=== PATIENT | female | born 1940 | race Caucasian/White ===

== ENCOUNTER 2018-12-05 22:16 | Inpatient (IN) | payer MEDICARE, MEDICAID ==
--- OUTSIDE RECORDS SUMMARY | 2018-12-05 22:25 | XMS REPORT | Continuity of Care Document ---
:1940 Author Organization [facility] Allergies and Intolerances Code Code Allergy Substance Type Reaction Severity Start End Status System Date Date 12265 RXNorm IV Dye, Iodine Drug Unknown Active Containing allergy (disorder) 3804 RXNorm Librium Drug Unknown Active allergy (disorder) 44168 RXNorm penicillin Drug Unknown Active allergy (disorder) 2670 RXNorm Codeine Drug Unknown Active allergy (disorder) 20271006 RXNorm Flagyl Drug Unknown Active allergy (disorder) 7052 RXNorm Morphine Drug Unknown Active allergy (disorder) 8754 RXNorm Propafenone Drug Unknown Active allergy (disorder) 6448 RXNorm [place] Drug Unknown Active allergy (disorder) 6387 RXNorm Lidocaine Drug Unknown Active allergy (disorder) 2356 RXNorm Chlordiazepoxide Drug Unknown Active allergy (disorder) Medications RxNorm Medication Dose Route Instructions Start End Status Date Date Acetaminophen 500 mg oral orally every 8 Active hours as needed. 087374 Acetaminophen 325 1 TAB ORAL EVERY 4 HOURS Active MG / Hydrocodone NEEDED as 019 Bitartrate 5 MG needed. (PRN Oral Tablet MILD PAIN) 0478949 Albuterol 0.833 3 mL inhalation inhaled 2 Active MG/ML / Ipratropium times per day [place] 0.167 MG/ML Inhalation Solution 19720602 Alprazolam 1 MG 1 mg oral orally 4 times Active Oral Tablet per day 129247 Ascorbic Acid 500 500 mg oral orally 2 times Active MG Oral Tablet per day 1191 Aspirin 81 mg oral orally daily Active (HOLD UNTIL DISCUSSED WITH PRESCRIBING PHYSICIAN) Budesonide 2 puff inhalation inhaled 2 Active times per day 946268 Dextromethorphan 5 mL oral orally 3 times Active Hydrobromide 2 per day MG/ML / Guaifenesin 20 MG/ML Oral Solution Doxycycline Hyclate 100 mg oral orally 2 times Active Oral per day (14 019 days) 25172 ferrous sulfate 325 mg oral orally daily Active (Ordered Dose: of ferrous sulfate) 70665 gabapentin 300 mg oral orally every Active day at bedtime 852768 Ketoconazole 20 1 applic topical topically 2 Active MG/ML Topical Cream times per day 488743 Lactobacillus 2 tab oral orally daily Active acidophilus 791793010 UNT Oral Tablet Levothyroxine Oral 125 mcg oral orally daily Active Methyl 1 applic topical topically 3 Active Salicylate-Menthol times per day Lotion as needed. 515488 Metoprolol Tartrate 25 mg oral orally 2 times Active 25 MG Oral Tablet per day Multivitamins 1 tab oral orally every Active Tablet morning 434516 Nystatin 100 UNT/MG 1 applic topical topically 3 Active Topical Powder times per day 7646 Omeprazole 20 mg oral orally daily Active 38765 Ondansetron 4 mg oral orally every 6 Active hours as needed. ProMod Liquid 60 oral orally 3 times Active milliliters per day (for wound healing) 789440 Sodium Chloride 2SPRAYS NASAL EVERY 4 HOURS Active 0.111 MEQ/ML Nasal (TO EACH 019 [place] NOSTRIL) Warfarin Oral 3.5 mg oral orally daily Active (HOLD UNTIL 019 DISCUSSED WITH PRESCRIBING PHYSICIAN) 633208 Zinc Sulfate 220 MG 220 mg oral orally daily Active Oral Tablet Problems Code Code System Problem Name Start Date End Date Status 632357763 SNOMED-CT Bleeding from nose 07/2018 Active 890325259 SNOMED-CT Pressure ulcer stage 4 U Active Procedures No data in the system Results Laboratory Results Order: PT/INR Specimen Source: Body Site: Legend: (G,H)=High, (GG,HH,CH,#H)=Above High Threshold, (#,L)=Low, (##,CL,#L,LL) =Below Low Threshold, (C,CC,CA,#A,A)=Abnormal LOINC Test Result Flag Range Units Date 5901-06 1PT Time PPP 25.6 H 9.4-12.4 sec 11/22/2018 07:35 6301-6 1INR PPP 2.3 11/22/2018 07:35 Interpretive [place]: 1 INR INTERPERTATION 2.0-3.0 THERAPEUTIC MONITORING 2.5-3.5 HEART VALVE REPLACEMENT Performing Lab Footnotes:[facility] - [id number] - [address] [place] [address] NURIA MDCANIEL Social History Code Code System Social History Description Dates Observed Observation 843759947 SNOMED CT Current Smoking Unknown if ever Status smoked UNK AdministrativeGender Sex Assigned At Unknown Vital Signs No data in the system Goals Section No data in the system Health Concerns No data in the systemEncounter Diagnosis Date Code Code System Diagnosis Status I48.0 ICD10 PAROXYSMAL ATRIAL FIBRILLATION Active Advance Directives MOLST Directive Type Effective Date Real Estate Agency Principal Notes Supporting Document Name Address Phone No Directive 07/31/2018 Not Specified Not Specified Not Specified HCP listed Yes Type specified 12:55:00 PM Melani- daughter [phone] Family History No data in the system Functional Status No data in the system Immunizations No data in the system Medical Equipment No data in the system Mental Status No data in the system Assessment and Plan Assessments No data in the systemPlan Of Treatment No data in the systemPending Tests No data in the system Hospital Discharge Instructions No data in the system Reason for Visit No data in the system
--- OUTSIDE RECORDS SUMMARY | 2018-12-05 22:25 | XMS REPORT | Continuity of Care Document ---
:1940 Author Organization [facility] Allergies and Intolerances Code Code Allergy Substance Type Reaction Severity Start End Status System Date Date 46112 RXNorm IV Dye, Iodine Drug Unknown Active Containing allergy (disorder) 3804 RXNorm Librium Drug Unknown Active allergy (disorder) 48858 RXNorm penicillin Drug Unknown Active allergy (disorder) 2670 RXNorm Codeine Drug Unknown Active allergy (disorder) 20271006 RXNorm Flagyl Drug Unknown Active allergy (disorder) 7052 RXNorm Morphine Drug Unknown Active allergy (disorder) 8754 RXNorm Propafenone Drug Unknown Active allergy (disorder) 6448 RXNorm [place] Drug Unknown Active allergy (disorder) 6387 RXNorm Lidocaine Drug Unknown Active allergy (disorder) 2356 RXNorm Chlordiazepoxide Drug Unknown Active allergy (disorder) Medications RxNorm Medication Dose Route Instructions Start End Status Date Date Acetaminophen 500 mg oral orally every 8 Active hours as needed. 736880 Acetaminophen 325 1 TAB ORAL EVERY 4 HOURS Active MG / Hydrocodone NEEDED as 019 Bitartrate 5 MG needed. (PRN Oral Tablet MILD PAIN) 5584761 Albuterol 0.833 3 mL inhalation inhaled 2 Active MG/ML / Ipratropium times per day [place] 0.167 MG/ML Inhalation Solution 19720602 Alprazolam 1 MG 1 mg oral orally 4 times Active Oral Tablet per day 358123 Ascorbic Acid 500 500 mg oral orally 2 times Active MG Oral Tablet per day 1191 Aspirin 81 mg oral orally daily Active (HOLD UNTIL DISCUSSED WITH PRESCRIBING PHYSICIAN) Budesonide 2 puff inhalation inhaled 2 Active times per day 327316 Dextromethorphan 5 mL oral orally 3 times Active Hydrobromide 2 per day MG/ML / Guaifenesin 20 MG/ML Oral Solution Doxycycline Hyclate 100 mg oral orally 2 times Active Oral per day (14 019 days) 08202 ferrous sulfate 325 mg oral orally daily Active (Ordered Dose: of ferrous sulfate) 42494 gabapentin 300 mg oral orally every Active day at bedtime 414392 Ketoconazole 20 1 applic topical topically 2 Active MG/ML Topical Cream times per day 894584 Lactobacillus 2 tab oral orally daily Active acidophilus 956445883 UNT Oral Tablet Levothyroxine Oral 125 mcg oral orally daily Active Methyl 1 applic topical topically 3 Active Salicylate-Menthol times per day Lotion as needed. 525737 Metoprolol Tartrate 25 mg oral orally 2 times Active 25 MG Oral Tablet per day Multivitamins 1 tab oral orally every Active Tablet morning 680739 Nystatin 100 UNT/MG 1 applic topical topically 3 Active Topical Powder times per day 7646 Omeprazole 20 mg oral orally daily Active 03867 Ondansetron 4 mg oral orally every 6 Active hours as needed. ProMod Liquid 60 oral orally 3 times Active milliliters per day (for wound healing) 940699 Sodium Chloride 2SPRAYS NASAL EVERY 4 HOURS Active 0.111 MEQ/ML Nasal (TO EACH 019 [place] NOSTRIL) Warfarin Oral 3.5 mg oral orally daily Active (HOLD UNTIL 019 DISCUSSED WITH PRESCRIBING PHYSICIAN) 222778 Zinc Sulfate 220 MG 220 mg oral orally daily Active Oral Tablet Problems Code Code System Problem Name Start Date End Date Status 972256369 SNOMED-CT Bleeding from nose 07/2018 Active 682406953 SNOMED-CT Pressure ulcer stage 4 U Active Procedures No data in the system Results Laboratory Results Order: PT/INR Specimen Source: Body Site: Legend: (G,H)=High, (GG,HH,CH,#H)=Above High Threshold, (#,L)=Low, (##,CL,#L,LL) =Below Low Threshold, (C,CC,CA,#A,A)=Abnormal LOINC Test Result Flag Range Units Date 5901-06 1PT Time PPP 37.2 H 9.4-12.4 sec 11/15/2018 08:25 6301-6 1INR PPP 3.3 11/15/2018 08:25 Interpretive [place]: 1 INR INTERPERTATION 2.0-3.0 THERAPEUTIC MONITORING 2.5-3.5 HEART VALVE REPLACEMENT Performing Lab Footnotes:[facility] - [id number] - [address] [place] [address] NURIA MCDANIEL Social History Code Code System Social History Description Dates Observed Observation 756446183 SNOMED CT Current Smoking Unknown if ever Status smoked UNK AdministrativeGender Sex Assigned At Unknown Vital Signs No data in the system Goals Section No data in the system Health Concerns No data in the systemEncounter Diagnosis Date Code Code System Diagnosis Status I48.0 ICD10 PAROXYSMAL ATRIAL FIBRILLATION Active Advance Directives MOLST Directive Type Effective Date Tumor Registrar Notes Supporting Document Name Address Phone No Directive 07/31/2018 Not Specified Not Specified Not Specified HCP listed Yes Type specified 12:55:00 PM Melani- daughter [phone] Family History No data in the system [...]
--- OUTSIDE RECORDS SUMMARY | 2018-12-05 22:25 | XMS REPORT | Continuity of Care Document ---
:1940 Author Organization [facility] Allergies and Intolerances Code Code Allergy Substance Type Reaction Severity Start End Status System Date Date 62140 RXNorm IV Dye, Iodine Drug Unknown Active Containing allergy (disorder) 3804 RXNorm Librium Drug Unknown Active allergy (disorder) 85961 RXNorm penicillin Drug Unknown Active allergy (disorder) 2670 RXNorm Codeine Drug Unknown Active allergy (disorder) 20271006 RXNorm Flagyl Drug Unknown Active allergy (disorder) 7052 RXNorm Morphine Drug Unknown Active allergy (disorder) 8754 RXNorm Propafenone Drug Unknown Active allergy (disorder) 6448 RXNorm [place] Drug Unknown Active allergy (disorder) 6387 RXNorm Lidocaine Drug Unknown Active allergy (disorder) 2356 RXNorm Chlordiazepoxide Drug Unknown Active allergy (disorder) Medications RxNorm Medication Dose Route Instructions Start End Status Date Date Acetaminophen 500 mg oral orally every 8 Active hours as needed. 839641 Acetaminophen 325 1 TAB ORAL EVERY 4 HOURS Active MG / Hydrocodone NEEDED as 019 Bitartrate 5 MG needed. (PRN Oral Tablet MILD PAIN) 1684458 Albuterol 0.833 3 mL inhalation inhaled 2 Active MG/ML / Ipratropium times per day [place] 0.167 MG/ML Inhalation Solution 19720602 Alprazolam 1 MG 1 mg oral orally 4 times Active Oral Tablet per day 146920 Ascorbic Acid 500 500 mg oral orally 2 times Active MG Oral Tablet per day 1191 Aspirin 81 mg oral orally daily Active (HOLD UNTIL DISCUSSED WITH PRESCRIBING PHYSICIAN) Budesonide 2 puff inhalation inhaled 2 Active times per day 065982 Dextromethorphan 5 mL oral orally 3 times Active Hydrobromide 2 per day MG/ML / Guaifenesin 20 MG/ML Oral Solution Doxycycline Hyclate 100 mg oral orally 2 times Active Oral per day (14 019 days) 67270 ferrous sulfate 325 mg oral orally daily Active (Ordered Dose: of ferrous sulfate) 93039 gabapentin 300 mg oral orally every Active day at bedtime 421040 Ketoconazole 20 1 applic topical topically 2 Active MG/ML Topical Cream times per day 323977 Lactobacillus 2 tab oral orally daily Active acidophilus 226382484 UNT Oral Tablet Levothyroxine Oral 125 mcg oral orally daily Active Methyl 1 applic topical topically 3 Active Salicylate-Menthol times per day Lotion as needed. 009738 Metoprolol Tartrate 25 mg oral orally 2 times Active 25 MG Oral Tablet per day Multivitamins 1 tab oral orally every Active Tablet morning 204540 Nystatin 100 UNT/MG 1 applic topical topically 3 Active Topical Powder times per day 7646 Omeprazole 20 mg oral orally daily Active 88873 Ondansetron 4 mg oral orally every 6 Active hours as needed. ProMod Liquid 60 oral orally 3 times Active milliliters per day (for wound healing) 587529 Sodium Chloride 2SPRAYS NASAL EVERY 4 HOURS Active 0.111 MEQ/ML Nasal (TO EACH 019 [place] NOSTRIL) Warfarin Oral 3.5 mg oral orally daily Active (HOLD UNTIL 019 DISCUSSED WITH PRESCRIBING PHYSICIAN) 133441 Zinc Sulfate 220 MG 220 mg oral orally daily Active Oral Tablet Problems Code Code System Problem Name Start Date End Date Status 226529078 SNOMED-CT Bleeding from nose 07/2018 Active 678660548 SNOMED-CT Pressure ulcer stage 4 U Active Procedures No data in the system Results Laboratory Results Order: C REACTIVE PROTEIN Specimen Source : Body Site: Legend: (G,H)=High, (GG,HH,CH,#H)=Above High Threshold, (#,L)=Low, (##,CL,#L,LL)=Below Low Threshold, (C,CC,CA,#A,A)=Abnormal LOINC Test Result Flag Range Units Date 1987-08 1CRP SerPl-mCnc 56.4 H <=5.0 mg/L 11/08/2018 09:10 Performing Lab Footnotes: Laboratory - [id number] - [address] [place] [address] NURIA MCDANIEL Order: CBC Specimen Source: Body Site: Legend: (G,H)=High, (GG,HH,CH,#H )=Above High Threshold, (#,L)=Low, (##,CL,#L,LL)=Below Low Threshold, (C,CC,CA,# A,A)=Abnormal LOINC Test Result Flag Range Units Date 6690-2 1WBC # Bld Auto 7.5 4.8-10.8 K/uL 11/08/2018 09:10 02805-2 1RBC # Bld 3.75 L 4.20-5.40 M/uL 11/08/2018 09:10 718-7 1Hgb Bld-mCnc 10.5 L 12.0-16.0 gm/dL 11/08/2018 09:10 4544-3 1Hct VFr Bld Auto 33.1 L 36.0-48.0 % 11/08/2018 09:10 787-2 1MCV RBC Auto 88.4 80.0-100.0 fL 11/08/2018 09:10 77490-3 1MCHC RBC-mCnc 31.8 30.0-36.5 % 11/08/2018 09:10 00211-4 1MCH RBC Qn 28.1 27.0-34.0 pg 11/08/2018 09:10 09066-2 1RDW RBC 13.6 11.0-15.0 % 11/08/2018 09:10 777-3 1Platelet # Bld Auto 196 130-450 K/uL 11/08/2018 09:10 23603-9 1PMV Bld Auto 8.9 6.0-12.0 fL 11/08/2018 09:10 Performing Lab Footnotes: Laboratory - [id number] - [address] [place] [address] NURIA [id number] Order: PT/INR Specimen Source: Body Site: Legend: (G,H)=High, (GG,HH,CH ,#H)=Above High Threshold, (#,L)=Low, (##,CL,#L,LL)=Below Low Threshold, (C,CC, CA,#A,A)=Abnormal LOINC Test Result Flag Range Units Date 5902-2 1PT Time PPP 25.2 H 9.4-12.4 sec 11/08/2018 09:10 6301-6 1INR PPP 2.2 11/08/2018 09:10 Interpretive [place]: 1 INR INTERPERTATION 2.0-3.0 THERAPEUTIC MONITORING 2.5-3.5 HEART VALVE REPLACEMENT Performing Lab Footnotes: Laboratory - [id number] - [address] [place] [address] NURIA Doan CHARLEENCIOMPerico Social History Code Code System Social History Description Dates Observed Observation 446076036 SNOMED CT Current Smoking Unknown if ever Status smoked UNK AdministrativeGender Sex Assigned At Unknown Vital Signs No data in the system Goals Section No data in the system Health Concerns No data in the systemEncounter Diagnosis Date Code Code System Diagnosis Status I48.0 ICD10 PAROXYSMAL ATRIAL FIBRILLATION Active Advance Directives MOLST Directive Type Effective Date Trimming Inspector Notes Supporting Document Name Address Phone No Directive 07/31/2018 Not Specified Not Specified Not Specified HCP listed Yes Type specified 12:55:00 PM Melani- daughter [phone] Family History No data in the system [...]
--- OUTSIDE RECORDS SUMMARY | 2018-12-05 22:26 | XMS REPORT | Continuity of Care Document ---
:1940 Author Organization [facility] Allergies and Intolerances Code Code Allergy Substance Type Reaction Severity Start End Status System Date Date 73455 RXNorm IV Dye, Iodine Drug Unknown Active Containing allergy (disorder) 3804 RXNorm Librium Drug Unknown Active allergy (disorder) 34091 RXNorm penicillin Drug Unknown Active allergy (disorder) 2670 RXNorm Codeine Drug Unknown Active allergy (disorder) 20271006 RXNorm Flagyl Drug Unknown Active allergy (disorder) 7052 RXNorm Morphine Drug Unknown Active allergy (disorder) 8754 RXNorm Propafenone Drug Unknown Active allergy (disorder) 6448 RXNorm [place] Drug Unknown Active allergy (disorder) 6387 RXNorm Lidocaine Drug Unknown Active allergy (disorder) 2356 RXNorm Chlordiazepoxide Drug Unknown Active allergy (disorder) Medications RxNorm Medication Dose Route Instructions Start End Status Date Date Acetaminophen 500 mg oral orally every 8 Active hours as needed. 704641 Acetaminophen 325 1 TAB ORAL EVERY 4 HOURS Active MG / Hydrocodone NEEDED as 019 Bitartrate 5 MG needed. (PRN Oral Tablet MILD PAIN) 1561368 Albuterol 0.833 3 mL inhalation inhaled 2 Active MG/ML / Ipratropium times per day [place] 0.167 MG/ML Inhalation Solution 19720602 Alprazolam 1 MG 1 mg oral orally 4 times Active Oral Tablet per day 572957 Ascorbic Acid 500 500 mg oral orally 2 times Active MG Oral Tablet per day 1191 Aspirin 81 mg oral orally daily Active (HOLD UNTIL DISCUSSED WITH PRESCRIBING PHYSICIAN) Budesonide 2 puff inhalation inhaled 2 Active times per day 754239 Dextromethorphan 5 mL oral orally 3 times Active Hydrobromide 2 per day MG/ML / Guaifenesin 20 MG/ML Oral Solution Doxycycline Hyclate 100 mg oral orally 2 times Active Oral per day (14 019 days) 72226 ferrous sulfate 325 mg oral orally daily Active (Ordered Dose: of ferrous sulfate) 54743 gabapentin 300 mg oral orally every Active day at bedtime 132210 Ketoconazole 20 1 applic topical topically 2 Active MG/ML Topical Cream times per day 380396 Lactobacillus 2 tab oral orally daily Active acidophilus 678800636 UNT Oral Tablet Levothyroxine Oral 125 mcg oral orally daily Active Methyl 1 applic topical topically 3 Active Salicylate-Menthol times per day Lotion as needed. 201063 Metoprolol Tartrate 25 mg oral orally 2 times Active 25 MG Oral Tablet per day Multivitamins 1 tab oral orally every Active Tablet morning 468678 Nystatin 100 UNT/MG 1 applic topical topically 3 Active Topical Powder times per day 7646 Omeprazole 20 mg oral orally daily Active 04462 Ondansetron 4 mg oral orally every 6 Active hours as needed. ProMod Liquid 60 oral orally 3 times Active milliliters per day (for wound healing) 439898 Sodium Chloride 2SPRAYS NASAL EVERY 4 HOURS Active 0.111 MEQ/ML Nasal (TO EACH 019 [place] NOSTRIL) Warfarin Oral 3.5 mg oral orally daily Active (HOLD UNTIL 019 DISCUSSED WITH PRESCRIBING PHYSICIAN) 225798 Zinc Sulfate 220 MG 220 mg oral orally daily Active Oral Tablet Problems Code Code System Problem Name Start Date End Date Status 571211309 SNOMED-CT Bleeding from nose 07/2018 Active 681861739 SNOMED-CT Pressure ulcer stage 4 U Active Procedures No data in the system Results Laboratory Results Order: PT/INR Specimen Source: Body Site: Legend: (G,H)=High, (GG,HH,CH,#H)=Above High Threshold, (#,L)=Low, (##,CL,#L,LL) =Below Low Threshold, (C,CC,CA,#A,A)=Abnormal LOINC Test Result Flag Range Units Date 5901-06 1PT Time PPP 20.8 H 9.4-12.4 sec 11/01/2018 08:24 6301-6 1INR PPP 1.9 11/01/2018 08:24 Interpretive [place]: 1 INR INTERPERTATION 2.0-3.0 THERAPEUTIC MONITORING 2.5-3.5 HEART VALVE REPLACEMENT Performing Lab Footnotes:[facility] - [id number] - [address] [place] [address] NURIA MCDANIEL Social History Code Code System Social History Description Dates Observed Observation 420673945 SNOMED CT Current Smoking Unknown if ever Status smoked UNK AdministrativeGender Sex Assigned At Unknown Vital Signs No data in the system Goals Section No data in the system Health Concerns No data in the systemEncounter Diagnosis Date Code Code System Diagnosis Status I48.0 ICD10 PAROXYSMAL ATRIAL FIBRILLATION Active Advance Directives MOLST Directive Type Effective Date Ad Clerk Notes Supporting Document Name Address Phone No Directive 07/31/2018 Not Specified Not Specified Not Specified HCP listed Yes Type specified 12:55:00 PM Melani- daughter [phone] Family History No data in the system [...]
--- NOTE | 2018-12-05 22:27 | ED ---
HPI Febrile Illness - HPI Summary HPI Summary: A 78 y/o female brought in by ambulance presents to [facility] with a chief complaint of spiking fevers today. She reportedly had a fever of 101. Per EMS, the patient has an ulcerative wound on her coccyx and has been going to the wound clinic. The patient reports that her butt is sore. She denies any dysuria , cough or SOB. She was reportedly started on Doxycycline this morning. - History of Current Complaint Time Seen by Provider: 12/05/18 22:17 Hx Obtained From: Patient, EMS Onset/Duration: Started Hours Ago, Still Present Timing: Intermittent, Lasting Hours Initial Severity: Severe Current Severity: Severe Pain Intensity: 9 Pain Scale Used: 0-10 Numeric Aggravating Factors: Nothing Alleviating Factors: Nothing Associated Signs and Symptoms: Negative - dysuria, cough, SOB - Allergy/Home Medications Allergies/Adverse Reactions: Allergies Allergy/AdvReac Type Severity Reaction Status Date / Time caffeine Allergy Unknown Verified 12/05/18 22:42 Reaction Details cephalexin Allergy Unknown Verified 12/05/18 22:42 Reaction Details chlordiazepoxide Allergy Unknown Verified 12/05/18 22:42 Reaction Details ciprofloxacin [From Cipro] Allergy Unknown Verified 12/05/18 22:42 Reaction Details codeine Allergy Unknown Verified 12/05/18 22:42 Reaction Details lidocaine Allergy Unknown Verified 12/05/18 22:42 Reaction Details lithium Allergy Unknown Verified 12/05/18 22:42 Reaction Details metronidazole Allergy Unknown Verified 12/05/18 22:42 Reaction Details morphine Allergy Unknown Verified 12/05/18 22:42 Reaction Details Penicillins Allergy Unknown Verified 12/05/18 22:42 Reaction Details propafenone Allergy Unknown Verified 12/05/18 22:42 Reaction Details sulfamethoxazole Allergy Unknown Verified 12/05/18 22:42 [From Bactrim] Reaction Details trimethoprim [From Bactrim] Allergy Unknown Verified 12/05/18 22:42 Reaction Details Home Medications: Home Medications Benzocaine 1 applic BUCCAL SEE INSTRUCTIONS 12/05/18 [History Confirmed 12/05/18 ] Levothyroxine Sodium 1 tab PO DAILY 12/05/18 [History Confirmed 12/05/18] Mag-Oxide 400 mg PO DAILY 12/05/18 [History Confirmed 12/05/18] Metoprolol Tartrate TAB* [Lopressor TAB*] 1 tab PO BID 12/05/18 [History Confirmed 12/05/18] Multiple Vitamins 1 tab PO DAILY 12/05/18 [History Confirmed 12/05/18] Muscle Rub Cream 1 applic TOPICAL SEE INSTRUCTIONS 12/05/18 [History Confirmed 12/05/18] Nystatin TOP POWDER* 1 applic TOPICAL TID 12/05/18 [History Confirmed 12/05/18] Omeprazole 20 mg PO DAILY 12/05/18 [History Confirmed 12/05/18] Ondansetron ODT TAB* 1 tab PO SEE INSTRUCTIONS 12/05/18 [History Confirmed 12/05] Oxycodone HCl 0.5 tab PO QID 12/05/18 [History Confirmed 12/05/18] Oxycodone HCl 0.5 tab PO SEE INSTRUCTIONS 12/05/18 [History Confirmed 12/05/18] Promod 1 bottle PO TID 12/05/18 [History Confirmed 12/05/18] Saline Nasal Benton 2 spr BOTH NARES SEE INSTRUCTIONS 12/05/18 [History Confirmed 12/05/18] Symbicort 160/4.5 (NF) 2 inh PO BID 12/05/18 [History Confirmed 12/05/18] Triamcinolone Acetonide 1 applic TOPICAL SEE INSTRUCTIONS 12/05/18 [History Confirmed 12/05/18] Warfarin TAB(*) 2 mg PO DAILY 12/05/18 [History Confirmed 12/05/18] Xanax TAB* 1 tab PO SEE INSTRUCTIONS 12/05/18 [History Confirmed 12/05/18] Zinc Sulfate CAP* 220 mg PO DAILY 12/05/18 [History Confirmed 12/05/18] PMH/Surg Hx/FS Hx/Imm Hx Cardiovascular History: Reports: Hx Atrial Fibrillation Respiratory History: Reports: Hx Pulmonary Embolism History: Reports: Hx Kidney Stones - Family History Known Family History: Negative: Blood Disorder - Social History Alcohol Use: None Hx Substance Use: No Substance Use Type: Reports: None Hx Tobacco Use: No Smoking Status (MU): Never Smoked Tobacco Review of Systems Positive: Fever - 101 [employer], 98.9 at triage Negative: Shortness Of Breath, Cough Negative: dysuria Positive: Other - positive: "butt hurts" All Other Systems Reviewed And Are Negative: Yes Physical Exam - Summary Physical Exam Summary: Constitutional: Well-developed, Well-nourished, Alert. (-) Distressed. Skin: 4cm x1xm x4cm deep sacral decubitus ulcer with surrounding erythema and malodourous odor from discharge, right breast there is dry scaly peeling skin. HENT: Normocephalic; Atraumatic Eyes: Conjunctiva normal Neck: Musculoskeletal ROM normal neck. (-) JVD, (-) Stridor, (-) Tracheal deviation Cardio: Rhythm regular, rate normal, Heart sounds normal; Intact distal pulses; The pedal pulses are 2+ and symmetric. Radial pulses are 2+ and symmetric. (+) Murmur Pulmonary/Chest wall: Effort normal. (-) Respiratory distress, (-) Wheezes, (-) Rales Abd: Soft, (-) tenderness, (-) Distension, (-) Guarding, (-) Rebound Musculoskeletal: (-) Edema Lymph: (-) Cervical adenopathy Neuro: Alert, Oriented x3 Psych: Mood and affect Normal Triage Information Reviewed: Yes Vital Signs Reviewed: Yes Diagnostics - Laboratory Result Diagrams: 12/05/18 22:47 12/05/18 22:47 Lab Statement: Any lab studies that have been ordered have been reviewed, and results considered in the medical decision making process. - Radiology CXR Radiology Interpretation Completed By: ED Physician Summary of Radiographic Findings: no acute disease. Pending official imaging report. - EKG 22:56 Cardiac Rate: NL - 89 bpm EKG Rhythm: Sinus Rhythm Summary of EKG Findings: Normal sinus rhythm at 89 bpm, borderline prolonged SD , normal QRS, normal QTc, normal axis, normal ST, normal T-waves, nonspecific EKG. Re-Evaluation - Re-Evaluation First Eval Re-Evaluation Time: 02:23 Course/Dx - Course Course Of Treatment: A 78 y/o female brought in by ambulance presents to [facility] with a chief complaint of spiking fevers today. She reportedly had a fever of 101. Per EMS, the patient has an ulcerative wound on her coccyx and has been going to the wound clinic. The physical exam revealed a heart murmur, 4cm x1xm x4cm deep sacral decubitus ulcer with surrounding erythema and malodourous odor from discharge, right breast there is dry scaly peeling skin. CXR showed no acute disease. An EKG at 22:56 reveals Normal sinus rhythm at 89 bpm, borderline prolonged SD, normal QRS, normal QTc, normal axis, normal ST, normal T-waves, nonspecific EKG. Blood work, chemistries and urines obtained. Urine blood 1+, Trace Leukocyte Esterase, Urine RBC 3+, Ur Squamous Epith Cells present. Discussed case with Dr. Yeager, hospitalist, who accepted the patient for admission. The patient is agreeable with this plan. - Diagnoses Provider Diagnoses: Osteomyelitis - Provider Notifications Discussed Care Of Patient With: Bartolo Yeager Time Discussed With Above Provider: 02:26 Instructed by Provider To: Admit As Inpatient Discharge - Sign-Out/Discharge Documenting (check all that apply): Patient Departure - admit Patient Received Moderate/Deep Sedation with Procedure: No - Discharge Plan Condition: Fair Disposition: ADMITTED TO [facility] Referrals: Bar Rdz MD [Primary Care Provider] - - Billing Disposition and Condition Condition: FAIR Disposition: Admitted to [facility] - Attestation Statements Document Initiated by Filiberto: Yes Documenting Scribe: Kavin Eugene Provider For Whom Scribe is Documenting (Include Credential): Brenna Pacheco MD Scribe Attestation: Kavin Scott, scribed for Brenna Almodovar MD on 12/06/18 at 0430. Scribe Documentation Reviewed: Yes Provider Attestation: The documentation as recorded by the Kavin kellogg accurately reflects the service I personally performed and the decisions made by me, Brenna Almodovar MD Status of Scribe Document: Viewed
[2018-12-05 23:05] LABS: ABS Eosinophils 0.1 10^3/ul (0-0.6); ABS Lymphocytes 1.2 10^3/ul (1.0-4.8); ABS Monocytes 0.5 10^3/ul (0-0.8); ABS Neutrophils 5.6 10^3/ul (1.5-7.7); Eosinophil % 1.4 %; Hematocrit 33 % (35-47); Hemoglobin 10.4 g/dL (12.0-16.0); Lymphocyte % 16.4 %; Mean Corpuscular HGB Conc 32 g/dL (31-36); Mean Corpuscular Hemoglobin 27 pg (27-31); Mean Corpuscular Volume 85 fL (80-97); Mean Platelet Volume 9.2 fL (7.4-10.4); Platelet Count 193 10^3/uL (150-450); Red Blood Count 3.85 10^6 /uL (3.70-4.87); Red Cell Distribution Width 16 % (10-15); White Blood Count 7.5 10^3/uL (3.5-10.8)
[2018-12-05 23:21] LABS: Albumin 2.9 g/dL (3.2-5.2); Albumin/Globulin Ratio 0.9 (1-3); Calcium 8.9 mg/dL (8.6-10.3); EGFR African American 91.8 (>60); EGFR Non-African American 75.9 (>60); Globulin 3.4 g/dL (2-4); Total Bilirubin 0.4 mg/dL (0.2-1.0); Total Protein 6.3 g/dL (6.4-8.9)
[2018-12-05 23:22] LABS: Activated Partial Thrombo Time 37.3 seconds (26.0-38.0); INR 2.1 (0.82-1.09)
[2018-12-05 23:23] LABS: Troponin I 0.01 ng/mL (<0.04)
[2018-12-06 00:45] LABS: Urine Appearance Cloudy; Urine Bacteria Absent (Absent); Urine Bilirubin Negative (Negative); Urine Blood 1+ (Negative); Urine Color Yellow; Urine Glucose Negative (Negative); Urine Ketones Negative (Negative); Urine Nitrite Negative (Negative); Urine Protein Negative (Negative); Urine Red Blood Cell 3+(>10/hpf) (Absent); Urine Specific Gravity 1.023 (1.010-1.030); Urine Squamous Epithelial Cell Present (Absent); Urine Urobilinogen Negative (Negative); Urine White Blood Cell Trace(0-5/hpf) (Absent)
[2018-12-06 02:45] LABS: C Reactive Protein 142.13 mg/L (<8.01)
[2018-12-06 03:36] LABS: Erythrocyte Sed Rate 79 mm/Hr (0-29)
[2018-12-06] MEDS ORDERED: Vancomycin(*) 1,000 MG in NS 0.9% 250 ML* 250 ML IVPB ONE (04:23)
[2018-12-06] MEDS ORDERED: Saline NASAL SPRAY 0.65%* BTL BOTH NARES SCH (04:30)
[2018-12-06] MEDS: oxyCODONE TAB* 5 MG TAB PO PRN ×4 (05:34→22:32)
[2018-12-06] MEDS: Aztreonam (*) 1 GM in NS 0.9% 50 ML* 50 ML IVPB SCH ×3 (06:25→22:33)
[2018-12-06] MEDS: Levothyroxine TAB* 125 MCG TAB PO SCH (06:26)
--- NOTE | 2018-12-06 06:43 | HP ---
CC: Dr. Bar Rdz; Dr. Fraser * ADMISSION HISTORY AND PHYSICAL: DATE OF ADMISSION: 12/06/18 PRIMARY CARE PHYSICIAN: Dr. Bar Rdz. INFECTIOUS DISEASE PHYSICIAN: Dr. Fraser. CHIEF COMPLAINT: Worsening low back pain with drainage of the decubitus. HISTORY OF PRESENT ILLNESS: This is a 78-year-old female with past medical history of AFib; PE, on Coumadin; asthma/COPD; history of C. diff; history of hypothyroidism and a chronic sacral abscess which was tunneling at [facility], came in due to worsening sacral wound pain and increased drainage and odor from that area. History was obtained by the daughter who is present at bedside as the patient was in pain and did not give much detail. She was noted to have on and off fever for the last few days and a culture was suggestive of Strep agalactiae and was started on some doxycycline by Dr. Fraser. The patient still was having fever and chills and increased drainage and malodor coming from the wound. So, daughter decided to bring the patient to the ER for further evaluation. The patient stated that she has some on and off nausea, but no vomiting; severe pain, 10/10 in intensity. She has also had some erythematic changes on the right breast, but otherwise no chest pain, no shortness of breath. She has some abdominal pain at the abdominal hernia site, but this is chronic. No other lower extremity swelling. PAST MEDICAL HISTORY: As mentioned: 1. AFib. 2. History of PE, status post IVC filter. 3. History of asthma with CO2 retention. 4. Hypothyroidism. 5. Sacral abscess, which has been treated ongoing for over a year, mostly at an outside facility, which was complicated by a history of C. diff. PAST SURGICAL HISTORY: Include: 1. Two aortic valve surgeries. 2. IVC filter placement. 3. Multiple abdominal surgeries including a hernia repair surgery. HOME MEDICATIONS: The patient is currently on: 1. Zinc sulfate capsule 225 mg oral daily. 2. Xanax 1 tablet oral p.r.n. anxiety. 3. Coumadin 2 mg oral daily. 4. Triamcinolone apply to areas with itching every 12 hours as needed. 5. Symbicort 2 puffs by inhalation twice a day. 6. Ondansetron 1 tablet every 6 hours as needed for nausea, vomiting. 7. Benzonatate for mucous membrane as needed for gum pain. 8. Saline nasal spray, 2 spray nasally every 12 hours. 9. ProMod 1 bottle p.o. t.i.d. 10. Oxycodone half a tablet oral 4 times a day and another half a tablet as needed. 11. Omeprazole 20 mg oral daily. 12. Nystatin topical powder 3 times a day. 13. Multivitamins 1 tablet oral daily. 14. Muscle rub cream as needed for pain. 15. Metoprolol 25 mg oral twice a day. 16. Magnesium oxide 400 mg oral daily. 17. Levothyroxine 1 tablet 125 mcg oral daily. ALLERGIES: The patient has multiple documented allergies including CAFFEINE, CEPHALEXIN, CHLORDIAZEPOXIDE, CIPROFLOXACIN, CODEINE, LIDOCAINE, LITHIUM, METRONIDAZOLE, MORPHINE, PENICILLIN, PROPAFENONE, BACTRIM. SOCIAL HISTORY: No history of smoking, alcohol, or drug use. Lives at the rehab facility for the last 5 months and has decreased ambulation. Daughter is adamant that the patient is a full code. FAMILY HISTORY: Noncontributory at her age. REVIEW OF SYSTEMS: A 14-point review of systems did not reveal any new information other than what is stated in the HPI. PHYSICAL EXAMINATION GENERAL: The patient is awake, alert, oriented to time after cueing and place after daughter helped her. VITAL SIGNS: In the ER, temperature was documented at 96.4, BP 112/69, heart rate 88, respirations 36, saturating 96% on room air. HEAD AND NECK: Atraumatic, normocephalic. Bilateral pupils are reactive. Oral mucosa was moist. Neck: Supple. No jugular venous distention. LUNGS: Clear to auscultation bilaterally. No wheezing, rhonchi, or rales. HEART: S1, S2, systolic murmur was heard. ABDOMEN: Obese with large incisional hernia on the right lateral aspect of the abdomen. EXTREMITIES: No cyanosis or clubbing. SKIN: The patient had erythema and abrasion on the right breast, possible cellulitis and on the decubitus examination, the patient has large decubitus ulcers, likely stage 4 with large tunnels noted to be draining some purulent material. DIAGNOSTIC STUDIES/LAB DATA: Last CBC shows normal white count, hemoglobin and hematocrit stable, platelet count was normal. Coagulation profile shows therapeutic INR of 2.1. Comprehensive metabolic panel shows elevated BUN at 54. C- reactive protein elevated at 142. ESR was elevated at 79. Lactic acid normal. Urinalysis was trace leukocyte esterase positive and positive for some blood. Portable chest x-ray shows sternotomy sutures, but otherwise clear lung duron. Sacral images difficult to discern; I will wait for the official read to see if the patient has any osteo. IMPRESSION: This is a 78-year-old female with large sacral decubitus with previous osteomyelitis at that site, comes in with fever, elevated erythrocyte sedimentation rate and C-reactive protein, likely all secondary to osteomyelitis. ASSESSMENT AND PLAN: 1. Large sacral decubitus with possible osteomyelitis. We started the patient on vanco, aztreonam given her allergies. We will consult Dr. Fraser in the morning along with surgical consultation, although the patient is adamant that she did not want any real surgery at this point. 2. History of atrial fibrillation. We will restart home Coumadin dosage. 3. History of pulmonary embolism, on Coumadin. 4. History of asthma. Restart home medications. 5. History of hypothyroidism. Restart home medications. 6. History of Clostridium difficile. We will monitor for any diarrhea as the patient is being started on broad-spectrum antibiotics. [id number]/[facility] #: [id number] [facility]
[2018-12-06] MEDS: NS 0.9% 1000 ML** 1,000 ML IV SCH (08:45)
[2018-12-06] MEDS: Pantoprazole TAB * 40 MG TAB PO SCH (08:55)
[2018-12-06] MEDS: Zinc Sulfate CAP* 220 MG PO SCH (08:56)
[2018-12-06] MEDS ORDERED: Metoprolol Tartrate TAB* 25 MG PO SCH (09:00)
[2018-12-06] MEDS ORDERED: Mometasone/Formoter 200/5 MDI INH SCH (09:00)
[2018-12-06] MEDS ORDERED: PROMOD PO SCH (09:00)
[2018-12-06] MEDS: Nystatin TOP POWDER* 15 GM BTL TOPICAL SCH ×3 (09:25→22:50)
[2018-12-06] MEDS ORDERED: Vancomycin per Pharmacy* NOTE FOLLOW UP PRN (11:35)
[2018-12-06] MEDS ORDERED: Senna TAB 8.6 mg* TAB PO PRN (11:40)
[2018-12-06] MEDS ORDERED: diPHENhydraMINE PO* 25 MG PO PRN (11:48)
[2018-12-06] MEDS ORDERED: Iohexol 300* (CONTRAST) 10 ML SDV IV ONE (11:57)
--- NOTE | 2018-12-06 12:41 | CONS ---
CONSULTATION REPORT: DATE OF CONSULT: 12/06/18 REQUESTING PROVIDER: Dr. Yeager. CONSULTING SERVICE: Infectious Disease. REASON FOR CONSULTATION: Decubitus ulcer and pain. IMPRESSION: 1. Chronic decubitus ulceration, previously treated for osteomyelitis, recently increased drainage and outpatient wound culture grew group B streptococcus. She had started doxycycline this week, had some fevers and chills. Her daughter brought her to the hospital. Wound culture last night was taken. The Gram stains shows gram-positive cocci and Staphylococcus aureus PCR is positive. Methicillin- resistant Staphylococcus aureus PCR negative. On exam, there is no evidence of cellulitis and she may have myositis and recurrence of chronic osteomyelitis. 2. Decubitus ulceration after hospitalization for valve surgery in the distant past. 3. Atrial fibrillation. RECOMMENDATION: We will continue vancomycin and aztreonam given her allergy history and await the culture results. For decubitus ulceration include osteomyelitis, long courses of IV antibiotics do not change her trajectory or improve healing. We will plan on treating the soft tissue component here with IV antibiotics and transition to oral therapy. HISTORY OF PRESENT ILLNESS: This is a 78-year-old woman who developed decubitus ulceration over a year ago after a stay for valve surgery in [place]. She has been in the group home off and on since then with this ulcer. She has also been followed by the wound clinic and I had seen her earlier in a year and treated her for a presumed osteomyelitis of the sacrum with a prolonged course of antibiotics. She apparently had been making some progress and then over the last week or so developed increasing pain and some drainage. Because of those symptoms, she was seen by Esther Mendoza NP at the wound clinic, who did a wound culture that grew group B strep. She started the patient on doxycycline this week. She had continued to have symptoms and so her daughter brought her to the hospital last night. Her CRP was 140. White count was 7. She has had no fevers here. She cannot provide much history , which is obtained instead from review of the medical record and discussion with Dr. Yeager this morning. PAST MEDICAL HISTORY: 1. Status post aortic valve surgery and IVC placement. 2. Chronic decubitus ulceration. 3. History of PE. 4. Asthma. 5. Hypothyroidism. 6. Abdominal surgery including hernia repair. MEDICATIONS: 1. Aztreonam 1 g every 8 hours. 2. Levothyroxine. 3. Metoprolol. 4. Nystatin topical powder. 5. Oxycodone as needed. 6. Pantoprazole. 7. Vancomycin 1 g once. 8. Warfarin. ALLERGIES: CEPHALEXIN, CHLORDIAZEPOXIDE, CIPROFLOXACIN, CODEINE, LIDOCAINE, LITHIUM, METRONIDAZOLE, MORPHINE, PENICILLIN, PROPAFENONE, BACTRIM. She cannot provide history of what those reactions were. FAMILY HISTORY: No recurrent infections. SOCIAL HISTORY: She has been living at [facility]. She is a nonsmoker. REVIEW OF SYSTEMS: A 14-point review was all negative except as noted above in the history of present illness. PHYSICAL EXAM: Vital Signs: Temperature 36.2, heart rate 89, respiratory rate 16, blood pressure 100/53, oxygen saturation 100% on 2 L. In general, she is awake, not in distress. Neurologic: She is oriented x2. Answers questions. Follows commands. Moves all extremities. HEENT: There is no conjunctival hemorrhage. Oropharynx without lesions. Neck is supple without mass. Heart is regular rate and rhythm without murmurs, rubs, or gallops. Lungs are clear to auscultation bilaterally. Abdomen: Soft, nontender, nondistended. Bowel sounds present. Skin: There is no rash or splinter hemorrhage. Musculoskeletal : No spine tenderness to palpation. There is a sacral ulceration, which is quite deep with at the base there is some granulation tissue. There is no serous drainage. There is no surrounding erythema. DIAGNOSTIC STUDIES/LAB DATA: White blood cell count 7, hemoglobin 10, platelets 193. Creatinine is 0.7. Please see impression and recommendations outlined above. Thanks for asking me to see Ms. Mahoney in consultation. [id number]/[facility] #: [id number] [facility]
[2018-12-06] MEDS: ALPRAZolam TAB* 0.5 MG PO SCH ×3 (13:39→19:55)
[2018-12-06] MEDS: Vancomycin(*) 1,000 MG in NS 0.9% 250 ML* 250 ML IVPB SCH (15:37)
--- NOTE | 2018-12-06 15:38 | PN ---
<Marian Alfonso - Last Filed: 12/06/18 18:34> Subjective Date of Service: 12/06/18 Interval History: Overnight, no issues noted. BP borderline, SBP ranging 90-100mmhg. Patient screamed for pain. Daughter was around and showed team a new wound on her right breast, which they just noticed, discharge noted from the wound. Objective Active Medications: Alprazolam (Xanax Tab*) 1 mg PO QID [facility] Last Admin: 12/06/18 13:39 Dose: 1 mg Sodium Chloride (Ns 0.9% 1000 Ml) 1,000 mls @ 75 mls/hr IV PER RATE [facility] Last Admin: 12/06/18 08:45 Dose: 75 mls/hr Aztreonam 1 gm/ Sodium (Chloride) 50 mls @ 200 mls/hr IVPB Q8H [facility] Last Admin: 12/06/18 13:36 Dose: 200 mls/hr Vancomycin HCl 1,000 mg/ (Sodium Chloride) 250 mls @ 166.667 mls/hr IVPB Q12H [facility] Levothyroxine Sodium (Synthroid Tab*) 125 mcg PO 0600 [facility] Last Admin: 12/06/18 06:26 Dose: 125 mcg Metoprolol Tartrate (Lopressor Tab*) 25 mg PO DAILY [facility] Mometasone Furoate/Formoterol Fumar (Dulera 200/5 Mdi*) 2 puff INH BID [facility] Nystatin (Nystatin Top Powder*) 1 applic TOPICAL TID [facility] Last Admin: 12/06/18 13:39 Dose: 1 applic Oxycodone HCl (Roxycodone Tab*) 2.5 mg PO QID PRN PRN Reason: PAIN - SEVERE Last Admin: 12/06/18 13:32 Dose: 2.5 mg Pantoprazole Sodium (Protonix Tab*) 40 mg PO DAILY [facility] Last Admin: 12/06/18 08:55 Dose: 40 mg Pharmacy Consult (Vancomycin Per Pharmacy*) 1 note FOLLOW UP . PRN PRN Reason: PER PROTOCOL Pharmacy Profile Note (Coumadin Per Pharmacy*) 0 note FOLLOW UP .PER PHARMACY PROTOC [facility]; Protocol Pharmacy Profile Note (Vancomycin Trough Check) 1 note FOLLOW UP ONCE ONE Stop: 12/07/18 15:31 Senna (Senokot 8.6 Mg Tab*) 2 tab PO DAILY PRN PRN Reason: CONSTIPATION Sodium Chloride (Sodium Chloride 0.65% Nasal [place]*) 2 spray BOTH NARES .SEE INSTRUCTIONS [facility] Warfarin Sodium (Coumadin Tab(*)) 2 mg PO ONCE ONE Stop: 12/06/18 17:01 Zinc Sulfate (Zinc-220 Cap*) 220 mg PO DAILY [facility] Last Admin: 12/06/18 08:56 Dose: 220 mg Vital Signs - 8 hr 12/06/18 12/06/18 12/06/18 08:00 08:02 08:55 Temperature 97.1 F Pulse Rate 89 Respiratory 17 16 18 Rate Blood Pressure 100/53 (mmHg) O2 Sat by Pulse 98 100 Oximetry 12/06/18 12/06/18 12/06/18 11:59 13:32 13:39 Temperature 98.5 F Pulse Rate 90 Respiratory 16 17 17 Rate Blood Pressure 102/48 (mmHg) O2 Sat by Pulse 98 Oximetry Oxygen Devices in Use Now: Nasal Cannula Exam: Lying on the bed. alert. Heart normal S1S2 Lung clear skin: ulcer noted on right breast upper right quadrant, huge ulcer noted on sacrum (unable to visualize whether bone is exposed) Result Diagrams: 12/05/18 22:47 12/05/18 22:47 Assess/Plan/Problems-Billing Assessment: - Patient Problems (1) Sacral decubitus ulcer Current Visit: Yes Status: Acute Code(s): L89.159 - PRESSURE ULCER OF SACRAL REGION, UNSPECIFIED STAGE SNOMED Code(s): 917203043 Comment: - osteomyelitis is of concern - MRI scan to access decubitus ulcer, ID noted and agreed with plan - continue iv aztrenam and vancomycin - wound team review (2) Decubitus skin ulcer Current Visit: Yes Status: Acute Code(s): L89.90 - PRESSURE ULCER OF UNSPECIFIED SITE, UNSPECIFIED STAGE SNOMED Code(s): 955285429 Comment: right breast ulcer new emerging with discharge wound team review (3) Anemia Current Visit: Yes Status: Acute Code(s): D64.9 - ANEMIA, UNSPECIFIED SNOMED Code(s): 824773476 Comment: ? anemia due to chronic disease iron study next bld taking (4) Atrial fibrillation Current Visit: Yes Status: Acute Code(s): I48.91 - UNSPECIFIED ATRIAL FIBRILLATION SNOMED Code(s): 45591823 Comment: rate controlled currently (5) History of pulmonary embolism Current Visit: Yes Status: Acute Code(s): Z86.711 - PERSONAL HISTORY OF PULMONARY EMBOLISM SNOMED Code(s): 772783891 Comment: on warfarin INR 2.1 (6) Asthma Current Visit: Yes Status: Acute Code(s): J45.909 - UNSPECIFIED ASTHMA, UNCOMPLICATED SNOMED Code(s): 074227233 Comment: stable now (7) History of hypothyroidism Current Visit: Yes Status: Acute Code(s): Z86.39 - PERSONAL HISTORY OF ENDO , NUTRITIONAL AND METABOLIC DISEASE SNOMED Code(s): 017276263 Comment: on levothyroxine Status and Disposition: Continue inpatient medicine Attestation Documenting Resident: Marian Alfonso Supervising Physician: Leona Hodges Attestation: This service has been performed in part by a resident under the direction of a teaching physician.I, Leona Hodges, performed the service, or was physically present during the critical, or meadows portions of the service, furnished by the resident. I participated in the management of the patient. <Dena Hodges - Last Filed: 12/06/18 21:20> Objective Active Medications: Alprazolam (Xanax Tab*) 1 mg PO QID [facility] Last Admin: 12/06/18 19:55 Dose: 1 mg Sodium Chloride (Ns 0.9% 1000 Ml) 1,000 mls @ 75 mls/hr IV PER RATE [facility] Last Admin: 12/06/18 08:45 Dose: 75 mls/hr Aztreonam 1 gm/ Sodium (Chloride) 50 mls @ 200 mls/hr IVPB Q8H [facility] Last Admin: 12/06/18 13:36 Dose: 200 mls/hr Vancomycin HCl 1,000 mg/ (Sodium Chloride) 250 mls @ 83.333 mls/hr IVPB Q12H [facility] Last Admin: 12/06/18 15:37 Dose: 166.667 mls/hr Levothyroxine Sodium (Synthroid Tab*) 125 mcg PO 0600 [facility] Last Admin: 12/06/18 06:26 Dose: 125 mcg Metoprolol Tartrate (Lopressor Tab*) 25 mg PO DAILY [facility] Mometasone Furoate/Formoterol Fumar (Dulera 200/5 Mdi*) 2 puff INH 0700,1900 [facility] Nystatin (Nystatin Top Powder*) 1 applic TOPICAL TID [facility] Last Admin: 12/06/18 13:39 Dose: 1 applic Oxycodone HCl (Roxycodone Tab*) 5 mg PO QID PRN PRN Reason: PAIN - SEVERE Last Admin: 12/06/18 16:12 Dose: 5 mg Pantoprazole Sodium (Protonix Tab*) 40 mg PO DAILY [facility] Last Admin: 12/06/18 08:55 Dose: 40 mg Pharmacy Consult (Vancomycin Per Pharmacy*) 1 note FOLLOW UP . PRN PRN Reason: PER PROTOCOL Pharmacy Profile Note (Coumadin Per Pharmacy*) 0 note FOLLOW UP .PER PHARMACY PROTOC [facility]; Protocol Pharmacy Profile Note (Vancomycin Trough Check) 1 note FOLLOW UP ONCE ONE Stop: 12/07/18 15:31 Senna (Senokot 8.6 Mg Tab*) 2 tab PO DAILY PRN PRN Reason: CONSTIPATION Last Admin: 12/06/18 16:12 Dose: 2 tab Sodium Chloride (Sodium Chloride 0.65% Nasal [place]*) 2 spray BOTH NARES .SEE INSTRUCTIONS [facility] Zinc Sulfate (Zinc-220 Cap*) 220 mg PO DAILY [facility] Last Admin: 12/06/18 08:56 Dose: 220 mg Vital Signs - 8 hr 12/06/18 12/06/18 12/06/18 13:32 13:39 15:38 Respiratory 17 17 17 Rate 12/06/18 12/06/18 12/06/18 16:12 16:17 19:23 Respiratory 18 18 18 Rate 12/06/18 12/06/18 12/06/18 19:28 19:45 19:46 Respiratory 18 19 18 Rate 12/06/18 19:55 Respiratory 18 Rate Result Diagrams: 12/05/18 22:47 12/05/18 22:47 Assess/Plan/Problems-Billing Assessment: Attestation Attending/Supervising Physician Comment: This is a 78 year old woman with a history of PE, TAVR, and chronic decubitus ulcer who has been following with wound and ID and presents for increased drainage from the sacral wound. She currently resides at a rehab facility. Her daughter Becky provides most of the history. she says her mom has had increased pain over the past three weeks. She also noted a right breast ulceration. Not meeting SIRS criteria. Wound examined and reveals a 3cm wide, at least 5cm deep round ulcer with purulent drainage, minimal surrounding erythema. Agree with ID consult, aztreonam/vanc, and MRI of the pelvis. May need surgical or plastics evaluation; will need to address anticoagulation if surgery becomes a possibility.
[2018-12-06] MEDS ORDERED: Warfarin TAB(*) 2 MG PO ONE (17:00)
[2018-12-06] MEDS ORDERED: diPHENhydraMINE IV* 50 MG/ML 1 ml VIAL (BENADRYL) IV ONE (19:24)
--- NOTE | 2018-12-06 19:34 | PN ---
Hospitalist Progress Note Date of Service: 12/06/18 Called to floor regarding medication reaction. Patient had first dose of vancomycin IV administered at approx 1600. At approx 1915, nursing notes diffuse erythema throughout torso. At exam, patient is complaining of leg pain, which has been consistent since admission. Does not have chest pain or SOB. PE: General: obese whtie female laying in hospital bed appearing anxious Lungs: regular respirations, not using accessory muscles Skin: diffuse erythema throughout chest, abdomen, breasts, bilateral upper arms , and back; warm to touch Plan: -contacted pharmacy, next dose vanco will be administered at slower rate; pharmacist Leslie will be editing adverse reaction list on EMR -awaiting VS, patient has been minimally hypotensive; Nursing will monitor for evidence of anaphylaxis but none at this point -benadryl 50 mg IV ordered
[2018-12-06] MEDS: Mometasone/Formoter 200/5 MDI INH SCH (22:55)
[2018-12-07] MEDS: NS 0.9% 1000 ML** 1,000 ML IV SCH (01:29)
[2018-12-07] MEDS: Vancomycin(*) 1,000 MG in NS 0.9% 250 ML* 250 ML IVPB SCH (05:10)
[2018-12-07] MEDS: oxyCODONE TAB* 5 MG TAB PO PRN ×2 (05:11→16:09)
[2018-12-07] MEDS: Levothyroxine TAB* 125 MCG TAB PO SCH (05:11)
[2018-12-07 07:09] LABS: INR 2.38 (0.82-1.09)
--- NOTE | 2018-12-07 07:16 | PN ---
<Marian Alfonso - Last Filed: 12/07/18 16:02> Subjective Date of Service: 12/07/18 Interval History: Patient had labile BP overnight, with SBP 80-104mmhg. She was screaming whole night for pain, which is not new to her. Overnight, she developed rash over upper arms and chest with 2nd dose of vancomycin, nocturnalist slowed down the speed and completed infusion. Still complaining of itchness and rash this morning. Objective Active Medications: Alprazolam (Xanax Tab*) 1 mg PO QID [facility] Last Admin: 12/06/18 19:55 Dose: 1 mg Sodium Chloride (Ns 0.9% 1000 Ml) 1,000 mls @ 75 mls/hr IV PER RATE [facility] Last Admin: 12/07/18 01:29 Dose: 75 mls/hr Aztreonam 1 gm/ Sodium (Chloride) 50 mls @ 200 mls/hr IVPB Q8H [facility] Last Admin: 12/06/18 22:33 Dose: 200 mls/hr Vancomycin HCl 1,000 mg/ (Sodium Chloride) 250 mls @ 83.333 mls/hr IVPB Q12H [facility] Last Admin: 12/07/18 05:10 Dose: 83.333 mls/hr Levothyroxine Sodium (Synthroid Tab*) 125 mcg PO 0600 [facility] Last Admin: 12/07/18 05:11 Dose: 125 mcg Mometasone Furoate/Formoterol Fumar (Dulera 200/5 Mdi*) 2 puff INH 0700,1900 [facility] Last Admin: 12/06/18 22:55 Dose: Not Given Nystatin (Nystatin Top Powder*) 1 applic TOPICAL TID [facility] Last Admin: 12/06/18 22:50 Dose: 1 applic Oxycodone HCl (Roxycodone Tab*) 5 mg PO QID PRN PRN Reason: PAIN - SEVERE Last Admin: 12/07/18 05:11 Dose: 5 mg Pantoprazole Sodium (Protonix Tab*) 40 mg PO DAILY [facility] Last Admin: 12/06/18 08:55 Dose: 40 mg Pharmacy Consult (Vancomycin Per Pharmacy*) 1 note FOLLOW UP . PRN PRN Reason: PER PROTOCOL Pharmacy Profile Note (Coumadin Per Pharmacy*) 0 note FOLLOW UP .PER PHARMACY PROTOC [facility]; Protocol Pharmacy Profile Note (Vancomycin Trough Check) 1 note FOLLOW UP ONCE ONE Stop: 12/07/18 15:31 Senna (Senokot 8.6 Mg Tab*) 2 tab PO DAILY PRN PRN Reason: CONSTIPATION Last Admin: 12/06/18 16:12 Dose: 2 tab Sodium Chloride (Sodium Chloride 0.65% Nasal [place]*) 2 spray BOTH NARES .SEE INSTRUCTIONS [facility] Zinc Sulfate (Zinc-220 Cap*) 220 mg PO DAILY [facility] Last Admin: 12/06/18 08:56 Dose: 220 mg Vital Signs - 8 hr 12/06/18 12/06/18 12/07/18 23:12 23:20 03:16 Temperature 97.6 F 97.3 F Pulse Rate 106 105 Respiratory 20 20 Rate Blood Pressure 89/44 104/50 80/46 (mmHg) O2 Sat by Pulse 100 97 Oximetry 12/07/18 12/07/18 03:30 05:11 Temperature Pulse Rate Respiratory 24 Rate Blood Pressure 94/54 (mmHg) O2 Sat by Pulse Oximetry Oxygen Devices in Use Now: Nasal Cannula Exam: Lying on bed, screaming in pain Heart normal S1S2 Lung clear Abdomen: soft non tender Skin: erythema over right upper arm mainly, blanchable. Result Diagrams: 12/07/18 09:10 12/07/18 06:12 Assess/Plan/Problems-Billing Assessment: This is a 78 year old woman with a history of PE, TAVR, and chronic sacrum decubitus ulcer with underlying potential OM presents for increased drainage from the sacral wound and a new ulcer in right breast. - Patient Problems (1) Sacral decubitus ulcer Current Visit: Yes Status: Acute Code(s): L89.159 - PRESSURE ULCER OF SACRAL REGION, UNSPECIFIED STAGE SNOMED Code(s): 082513292 Comment: - osteomyelitis is of concern - MRI scan to access decubitus ulcer (not done yet as need to check TVAR compatibility) - wound team followup in wound while awaiting MRI to decide further plan - convert to linezolid in view of vancomycin allergy and prelim MSSA wound (2) Decubitus skin ulcer Current Visit: Yes Status: Acute Code(s): L89.90 - PRESSURE ULCER OF UNSPECIFIED SITE, UNSPECIFIED STAGE SNOMED Code(s): 183426132 Comment: right breast ulcer new emerging with discharge wound team followup (3) Anemia Current Visit: Yes Status: Acute Code(s): D64.9 - ANEMIA, UNSPECIFIED SNOMED Code(s): 163280773 Comment: anemia due to chronic disease + iron def (4) Atrial fibrillation Current Visit: Yes Status: Acute Code(s): I48.91 - UNSPECIFIED ATRIAL FIBRILLATION SNOMED Code(s): 56851753 Comment: currently sinus rhythm, rate controlled (5) History of pulmonary embolism Current Visit: Yes Status: Acute Code(s): Z86.711 - PERSONAL HISTORY OF PULMONARY EMBOLISM SNOMED Code(s): 684446971 Comment: on warfarin INR 2.1 (6) Asthma Current Visit: Yes Status: Acute Code(s): J45.909 - UNSPECIFIED ASTHMA, UNCOMPLICATED SNOMED Code(s): 900563063 Comment: stable now (7) History of hypothyroidism Current Visit: Yes Status: Acute Code(s): Z86.39 - PERSONAL HISTORY OF ENDO , NUTRITIONAL AND METABOLIC DISEASE SNOMED Code(s): 242431699 Comment: on levothyroxine Status and Disposition: Continue inpatient medicine Attestation Documenting Resident: Marian Alfonso Supervising Physician: Leona Hodges Attestation: This service has been performed in part by a resident under the direction of a teaching physician.I, Leona Hodges, performed the service, or was physically present during the critical, or meadows portions of the service, furnished by the resident. I participated in the management of the patient. <Dena Hodges - Last Filed: 12/07/18 16:37> Objective Active Medications: Alprazolam (Xanax Tab*) 1 mg PO QID [facility] Last Admin: 12/07/18 12:39 Dose: 1 mg Hydrocortisone (Hydrocortisone 0.5% Oint*) 1 applic TOPICAL BID [facility] Sodium Chloride (Ns 0.9% 1000 Ml) 1,000 mls @ 75 mls/hr IV PER RATE [facility] Last Admin: 12/07/18 01:29 Dose: 75 mls/hr Aztreonam 1 gm/ Sodium (Chloride) 50 mls @ 200 mls/hr IVPB Q8H [facility] Last Admin: 12/07/18 14:14 Dose: 200 mls/hr Levothyroxine Sodium (Synthroid Tab*) 125 mcg PO 0600 [facility] Last Admin: 08/08/19 05:11 Dose: 125 mcg Linezolid (Zyvox Tab*) 600 mg PO Q12H [facility] Last Admin: 12/07/18 09:02 Dose: 600 mg Mometasone Furoate/Formoterol Fumar (Dulera 200/5 Mdi*) 2 puff INH 0700,1900 [facility] Last Admin: 12/07/18 08:58 Dose: 2 puff Nystatin (Nystatin Top Powder*) 1 applic TOPICAL TID [facility] Last Admin: 12/07/18 14:19 Dose: 1 applic Oxycodone HCl (Roxycodone Tab*) 5 mg PO QID PRN PRN Reason: PAIN - SEVERE Last Admin: 12/07/18 16:09 Dose: 5 mg Pantoprazole Sodium (Protonix Tab*) 40 mg PO DAILY [facility] Last Admin: 12/07/18 08:44 Dose: 40 mg Pharmacy Profile Note (Coumadin Per Pharmacy*) 0 note FOLLOW UP .PER PHARMACY PROTOC [facility]; Protocol Senna (Senokot 8.6 Mg Tab*) 2 tab PO DAILY PRN PRN Reason: CONSTIPATION Last Admin: 12/06/18 16:12 Dose: 2 tab Sodium Chloride (Sodium Chloride 0.65% Nasal [place]*) 2 spray BOTH NARES .SEE INSTRUCTIONS [facility] Warfarin Sodium (Coumadin Tab(*)) 2 mg PO 1700 ONE Stop: 12/07/18 17:01 Zinc Sulfate (Zinc-220 Cap*) 220 mg PO DAILY [facility] Last Admin: 12/07/18 08:44 Dose: 220 mg Vital Signs - 8 hr 12/07/18 12/07/18 12/07/18 08:44 09:00 11:15 Temperature 97.9 F Pulse Rate 99 89 Respiratory 19 15 17 Rate Blood Pressure 98/55 (mmHg) O2 Sat by Pulse 95 97 Oximetry 12/07/18 12/07/18 12/07/18 11:22 12:39 15:47 Temperature Pulse Rate Respiratory 18 18 17 Rate Blood Pressure (mmHg) O2 Sat by Pulse Oximetry 12/07/18 16:09 Temperature Pulse Rate Respiratory 17 Rate Blood Pressure (mmHg) O2 Sat by Pulse Oximetry Result Diagrams: 12/07/18 09:10 12/07/18 06:12 Assess/Plan/Problems-Billing Assessment: Attestation Attending/Supervising Physician Comment: Ms. Mahoney has continued to cry out but has not been able to explain how we can help her; she denies increased pain or anxiety, denies shorntess of breath, chest pain, nausea. Exam: yelling out but denies increased pain or anxietyholosystolic murmur; lungs clear and cannot appreciate JVP. superficial breast ulceration and deep sacral wound. # sacral wound MSSA from wound need MRI of pelvis, awaiting records about tavr to ensure mri compatibility ID following change vanc to linezolid today due to allergy may need surgery vs. plastics? will await imaging # breast wound frequent turning and barrier cream # h/o afib holding metoprolol due to hypotension continue warfarin; check daily INRs during antibiotics
[2018-12-07 07:26] LABS: Total Iron Binding Capacity 210 mcg/dL (250-450); Transferrin 150 mg/dL (203-362)
[2018-12-07 07:27] LABS: CO2 Carbon Dioxide 21 mmol/L (22-32); Calcium 8.5 mg/dL (8.6-10.3); Potassium 4.2 mmol/L (3.5-5.0); Sodium 143 mmol/L (135-145)
[2018-12-07 07:33] LABS: BUN/Creatinine Ratio 48.1 (8-20); Blood Urea Nitrogen 37 mg/dL (6-24); EGFR African American 87.7 (>60); EGFR Non-African American 72.5 (>60); Glucose 107 mg/dL (70-100)
[2018-12-07 07:37] LABS: Anion Gap 8 mmol/L (2-11); Chloride 114 mmol/L (101-111)
[2018-12-07 07:45] LABS: Ferritin 171.7 ng/mL (11-307)
[2018-12-07 07:56] LABS: % Iron Saturation 10 % (15-55); Iron < 20 ug/dL (50-212)
[2018-12-07] MEDS: Aztreonam (*) 1 GM in NS 0.9% 50 ML* 50 ML IVPB SCH ×3 (08:40→22:58)
[2018-12-07] MEDS: Nystatin TOP POWDER* 15 GM BTL TOPICAL SCH ×3 (08:44→22:57)
[2018-12-07] MEDS: Pantoprazole TAB * 40 MG TAB PO SCH (08:44)
[2018-12-07] MEDS: ALPRAZolam TAB* 0.5 MG PO SCH ×4 (08:44→22:58)
[2018-12-07] MEDS: Zinc Sulfate CAP* 220 MG PO SCH (08:44)
[2018-12-07] MEDS: Mometasone/Formoter 200/5 MDI INH SCH ×2 (08:58→19:46)
[2018-12-07] MEDS ORDERED: Metoprolol Tartrate TAB* 25 MG PO SCH (09:00)
[2018-12-07] MEDS: Linezolid TAB* 600 MG PO SCH ×2 (09:02→22:58)
[2018-12-07 09:25] LABS: ABS Eosinophils 0.1 10^3/ul (0-0.6); ABS Lymphocytes 1.1 10^3/ul (1.0-4.8); ABS Monocytes 0.5 10^3/ul (0-0.8); ABS Neutrophils 11.2 10^3/ul (1.5-7.7); Eosinophil % 1.1 %; Hematocrit 34 % (35-47); Hemoglobin 10.6 g/dL (12.0-16.0); Lymphocyte % 8.7 %; Mean Corpuscular HGB Conc 32 g/dL (31-36); Mean Corpuscular Hemoglobin 27 pg (27-31); Mean Corpuscular Volume 85 fL (80-97); Mean Platelet Volume 8.9 fL (7.4-10.4); Platelet Count 232 10^3/uL (150-450); Red Blood Count 3.96 10^6 /uL (3.70-4.87); Red Cell Distribution Width 17 % (10-15); White Blood Count 13.1 10^3/uL (3.5-10.8)
[2018-12-07] MEDS ORDERED: Vancomycin Trough Check NOTE FOLLOW UP ONE (15:30)
[2018-12-07] MEDS ORDERED: Vancomycin(*) 750 MG in NS 0.9% 250 ML* 250 ML IVPB SCH (16:00)
[2018-12-07] MEDS ORDERED: diPHENhydraMINE IV* 50 MG/ML 1 ml VIAL (BENADRYL) SLOW PUSH ONE (16:16)
--- NOTE | 2018-12-07 16:34 | ECHO ---
*[facility]* [place] [address] Fax #: [phone] Transthoracic Echocardiogram Patient: Allison Mahoney : 1940 Study Date: 12/07/2018 Age: 78 Gender: F HR: 101 bpm Height: 58 in /147.3 cm BSA: 1.92 m^2 Weight: 188.6 lb /85.7 kg BMI: 39.5 kg/m^2 *Care Mgr: * Kaylen Cabrera RDCS RN *Referring Physician: * Dena Hodges *Reading Physician: * Dario Louise MD Indications: Congestive Heart Failure. History: Atrial fibrillation. Pulmonary Embolism. Asthma. Hypothyroidism. Large sacral decubitus ulcer with previous osteomyelitis. Risk factors: Obese. Labs, prior tests, procedures, and surgery: IVC filter placement. Aortic valve replacement. Conclusions Summary: - Right ventricle: Systolic function is low normal. - Left atrium: The atrium is mildly dilated. - Right atrium: The atrium is normal in size. - Mitral valve: The findings are consistent with mild stenosis. There is moderate regurgitation which may be underestimated due to acoustic shadowing. - Aortic valve: The findings are consistent with at least moderate stenosis; the degree of stenosis is difficult t estimate due to poor visualizaiton of the valve and mild dynamic left ventricular outflow tract accerleration. The peak systolic velocity is 4 m/sec. The mean systolic gradient is 38.0 mm Hg. The peak systolic gradient is 63.0 mm Hg. The LVOT to aortic valve VTI ratio is 0.39. The valve area by the velocity-time integral method is 0.84 cm^2. The ratio of LVOT to aortic valve peak velocity is 0.33. The valve area by the peak velocity method is 0.72 cm^2. The valve area index by the peak velocity method is 0.38 cm^2/m^2. - Tricuspid valve: There is trace to mild regurgitation. - Pulmonary arteries: Systolic pressure is mildly increased, estimated to be 39 mm Hg. Recommendations: Consider transesophageal echocardiogram to further assess mitral regurgitation and Aortic stenosis if clinically indicated Study data: Transthoracic echocardiogram. Procedure: Transthoracic echocardiography was performed. Image quality was fair. The study was technically limited due to restricted patient mobility and body habitus. The patient was unable to cooperate during the use of the Pedoff probe. Complete 2D, spectral Doppler, and color flow Doppler. Location: Bedside. Patient status: Inpatient. Patient room number: 439. No prior study is available for comparison. Rhythm: Tachycardia. Findings Left ventricle: The cavity size is mildly reduced. Wall thickness is moderately increased. Systolic function is hyperdynamic. The estimated ejection fraction is 65-70%. Wall motion is normal; there are no regional wall motion abnormalities. Doppler parameters are consistent with abnormal left ventricular relaxation (grade 1 diastolic dysfunction). Right ventricle: The cavity size is normal. Systolic function is low normal. Left atrium: The atrium is mildly dilated. Right atrium: The atrium is normal in size. Mitral valve: The Mitral valve annulus appears moderately calcified. The leaflets are mildly thickened. The findings are consistent with mild stenosis. There is moderate regurgitation which may be underestimated due to acoustic shadowing. Aortic valve: There is a bioprosthetic valve. The leaflets are moderately thickened. The findings are consistent with at least moderate stenosis; the degree of stenosis is difficult t estimate due to poor visualizaiton of the valve and mild dynamic left ventricular outflow tract accerleration. There is trace to mild regurgitation. Tricuspid valve: Not well visualized. There is no evidence of stenosis. There is trace to mild regurgitation. Pulmonic valve: Not well visualized. There is no evidence of stenosis. There is trace regurgitation. Aorta: Aortic root: The aortic root is poorly visualized. Ascending aorta: The ascending aorta is not visualized. Aortic arch: The aortic arch is not dilated. Pericardium: There is no pericardial effusion. Pulmonary arteries: Not well visualized. Systolic pressure is mildly increased, estimated to be 39 mm Hg. Systemic veins: Inferior vena cava: The vessel is normal in size. There is (>= 50%) respiratory change in the IVC dimension. Measurements Left ventricle Value Ref Aortic valve Value Ref GRETEL, LAX (L) 3.7 cm 3.8 - Peak v, S 4 m/sec ----- 5.2 VTI, S 59.7 cm ----- ESD, LAX 2.4 cm 2.2 - Mean grad, S 38.0 mm Hg ----- 3.5 Peak grad, S 63.0 mm Hg ----- FS, LAX 35 % 27 - 45 LVOT/AV, VTI ratio 0.39 ----- PW, ED (H) 1.4 cm 0.6 - MARGIE, VTI 0.84 cm^2 ----- 0.9 MARGIE, Vmax 0.72 cm^2 ----- IVS/PW, ED 1.01 -------- E', lat amy, TDI 10.0 cm/sec >=10.0 Mitral valve Value Re f E/e', lat amy, TDI 9 -------- Peak E 0.86 m/sec ----- E', med amy, TDI (L) 6.0 cm/sec >=7.0 Peak A 1.55 m/sec -- --- E/e', med amy, TDI 14 -------- VTI leaflet coapt 28.4 cm ----- E', avg, TDI 8.0 cm/sec -------- Decel time 198 ms ----- E/e', avg, TDI 11 <=14 PHT 55 ms -- --- Mean grad, D 5.3 mm Hg ----- LVOT Value Ref Peak grad, D 13.2 mm Hg ----- Diam, S 1.67 cm -------- Peak E/A ratio 0.56 ----- Area 2.2 cm^2 -------- MVA, PHT 4.0 cm^2 ----- Peak kareem, S 1.33 m/sec -------- MR peak v 5.65 m/sec ----- VTI, S 23.1 cm -------- ERO, PISA 0.27 cm^2 ----- Peak grad, S 7 mm Hg -------- MR vol, PISA 33 ml ----- Mean grad, S 5 mm Hg -------- Pulmonic valve Value Ref Ventricular septum Value Ref Peak v, S 0.97 m/sec ----- IVS, ED (H) 1.4 cm 0.6 - Peak grad, S 3.8 mm Hg ----- 0.9 Tricuspid valve Value Ref Right ventricle Value Ref TR peak v (H) 3 m/sec <=2.8 GRETEL minor ax, A4C 3.1 cm 1.9 - Peak RV-RA grad, S 36 mm Hg ----- mid 3.5 Aortic root Value Ref Left atrium Value Ref Root diam 1.9 cm <4.1 LA ID 3.8 cm -------- SI dim ES, LAX 3.8 cm -------- Aortic arch Value Ref ML dim, A4C 4.6 cm -------- Arch diam 2.3 cm ----- SI dim, A4C 4.9 cm -------- Vol, ES, 2-p 61 ml -------- Decending aorta Value Ref Vol/bsa, ES, 2-p 34 ml/m^2 16 - 34 Baldemar peak kareem 0.63 m/sec ----- Right atrium Value Ref Inferior vena cava Value Ref SI dim, ES 4.5 cm 3.4 - Diam 1.9 cm ----- 5.3 ML dim, ES, A4C 3.3 cm 2.6 - 4.4 SI dim, ES, A4C 4.5 cm 3.4 - 5.3 SI dim/bsa, ES, A4C 2.3 cm/m^2 1.9 - 3.1 Estimated RAP 3 mm Hg -------- Legend: (L) and (H) edith values outside specified reference range. Prepared and electronically signed by Dario Louise MD 12/07/2018 16:34
[2018-12-07] MEDS ORDERED: Warfarin TAB(*) 2 MG PO ONE (17:00)
[2018-12-07] MEDS ORDERED: Hydrocortisone 0.5% OINT* 1 APPLIC TUBE TOPICAL SCH (21:00)
[2018-12-08] MEDS: Hydrocortisone 1% CREAM* 30 GM TUBE TOPICAL SCH ×3 (05:01→20:15)
[2018-12-08] MEDS: Levothyroxine TAB* 125 MCG TAB PO SCH (05:34)
[2018-12-08] MEDS: oxyCODONE TAB* 5 MG TAB PO PRN ×4 (05:34→23:24)
[2018-12-08] MEDS: Aztreonam (*) 1 GM in NS 0.9% 50 ML* 50 ML IVPB SCH ×3 (05:38→20:17)
[2018-12-08 07:04] LABS: ABS Eosinophils 0.3 10^3/ul (0-0.6); ABS Monocytes 0.5 10^3/ul (0-0.8); ABS Neutrophils 8.6 10^3/ul (1.5-7.7); Eosinophil % 2.6 %; Hematocrit 29 % (35-47); Hemoglobin 9.5 g/dL (12.0-16.0); Lymphocyte % 9.5 %; Mean Corpuscular HGB Conc 33 g/dL (31-36); Mean Corpuscular Hemoglobin 28 pg (27-31); Mean Corpuscular Volume 85 fL (80-97); Mean Platelet Volume 9.2 fL (7.4-10.4); Platelet Count 181 10^3/uL (150-450); Red Blood Count 3.45 10^6 /uL (3.70-4.87); Red Cell Distribution Width 16 % (10-15); White Blood Count 10.3 10^3/uL (3.5-10.8)
[2018-12-08 07:06] LABS: INR 3.66 (0.82-1.09)
--- NOTE | 2018-12-08 07:18 | PN ---
<Marian Alfonso - Last Filed: 12/08/18 14:25> Subjective Date of Service: 12/08/18 Interval History: Noted one episode of low BP overnight, BP 71/33mmhg Pt is well, no complain of chest pain, SOB. Labs: WBC downtrending, Hb 10.6->9.5 Checked with MRI room, still trying to obtain valve information from [facility], didn't receive anything yet. Wound team haven't seen the patient yet. Objective Active Medications: Alprazolam (Xanax Tab*) 1 mg PO QID [facility] Last Admin: 12/07/18 22:58 Dose: 1 mg Hydrocortisone (Hytone Cream 1%*) 1 applic TOPICAL BID [facility] Last Admin: 12/08/18 05:01 Dose: 1 applic Aztreonam 1 gm/ Sodium (Chloride) 50 mls @ 200 mls/hr IVPB Q8H [facility] Last Admin: 12/08/18 05:38 Dose: 200 mls/hr Levothyroxine Sodium (Synthroid Tab*) 125 mcg PO 0600 [facility] Last Admin: 12/08/18 05:34 Dose: 125 mcg Linezolid (Zyvox Tab*) 600 mg PO Q12H [facility] Last Admin: 12/07/18 22:58 Dose: 600 mg Mometasone Furoate/Formoterol Fumar (Dulera 200/5 Mdi*) 2 puff INH 0700,1900 [facility] Last Admin: 12/07/18 19:46 Dose: 2 puff Nystatin (Nystatin Top Powder*) 1 applic TOPICAL TID [facility] Last Admin: 12/07/18 22:57 Dose: 1 applic Oxycodone HCl (Roxycodone Tab*) 5 mg PO QID PRN PRN Reason: PAIN - SEVERE Last Admin: 12/08/18 05:34 Dose: 5 mg Pantoprazole Sodium (Protonix Tab*) 40 mg PO DAILY [facility] Last Admin: 12/07/18 08:44 Dose: 40 mg Pharmacy Profile Note (Coumadin Per Pharmacy*) 0 note FOLLOW UP .PER PHARMACY PROTOC [facility]; Protocol Senna (Senokot 8.6 Mg Tab*) 2 tab PO DAILY PRN PRN Reason: CONSTIPATION Last Admin: 12/06/18 16:12 Dose: 2 tab Sodium Chloride (Sodium Chloride 0.65% Nasal [place]*) 2 spray BOTH NARES .SEE INSTRUCTIONS FRANCINE Zinc Sulfate (Zinc-220 Cap*) 220 mg PO DAILY [facility] Last Admin: 12/07/18 08:44 Dose: 220 mg Vital Signs - 8 hr 12/08/18 12/08/18 12/08/18 01:00 03:15 05:34 Temperature 98.1 F Pulse Rate 88 Respiratory 16 18 18 Rate Blood Pressure 99/50 (mmHg) O2 Sat by Pulse 98 Oximetry Oxygen Devices in Use Now: Nasal Cannula Exam: Inspected wound Right breast ulcer, no discharge seen Sacrum ulcer, one packed gauze seen, erythema not improving Heart normal S1S2 Lung Clear Abd: soft non tender LL no edema Result Diagrams: 12/08/18 06:07 12/08/18 06:07 Assess/Plan/Problems-Billing Assessment: This is a 78 year old woman with a history of PE, TAVR, and chronic sacrum decubitus ulcer with underlying potential OM presents for increased drainage from the sacral wound and a new ulcer in right breast. - Patient Problems (1) Sacral decubitus ulcer Current Visit: Yes Status: Acute Code(s): L89.159 - PRESSURE ULCER OF SACRAL REGION, UNSPECIFIED STAGE SNOMED Code(s): 671688934 Comment: - osteomyelitis is of concern - a/w MRI scan to access decubitus ulcer (not done yet as need to check TVAR compatibility with [facility]) - a/w wound team review - started on vancomycin, but noted allergic rashes with it, convert to linezolid in view of vancomycin allergy and prelim MSSA wound - consult general surgery team today for potential debridement (2) Decubitus skin ulcer Current Visit: Yes Status: Acute Code(s): L89.90 - PRESSURE ULCER OF UNSPECIFIED SITE, UNSPECIFIED STAGE SNOMED Code(s): 055245354 Comment: right breast ulcer new emerging with discharge a/w wound team followup (3) Anemia Current Visit: Yes Status: Acute Code(s): D64.9 - ANEMIA, UNSPECIFIED SNOMED Code(s): 745101206 Comment: anemia due to chronic disease + iron def (4) Atrial fibrillation Current Visit: Yes Status: Acute Code(s): I48.91 - UNSPECIFIED ATRIAL FIBRILLATION SNOMED Code(s): 57869646 Comment: currently sinus rhythm, rate controlled (5) History of pulmonary embolism Current Visit: Yes Status: Acute Code(s): Z86.711 - PERSONAL HISTORY OF PULMONARY EMBOLISM SNOMED Code(s): 357449879 Comment: on warfarin INR 3.6 today, stop today Convert to heparin if surgical team wants to do debridement. (6) Asthma Current Visit: Yes Status: Acute Code(s): J45.909 - UNSPECIFIED ASTHMA, UNCOMPLICATED SNOMED Code(s): 228180687 Comment: stable now (7) History of hypothyroidism Current Visit: Yes Status: Acute Code(s): Z86.39 - PERSONAL HISTORY OF ENDO , NUTRITIONAL AND METABOLIC DISEASE SNOMED Code(s): 125752094 Comment: on levothyroxine Status and Disposition: Continue inpatient medicine Attestation Documenting Resident: Marian Alfonso Supervising Physician: Dena Hodges Attestation: This service has been performed in part by a resident under the direction of a teaching physician.I, Dena Hodges, performed the service, or was physically present during the critical, or meadows portions of the service, furnished by the resident. I participated in the management of the patient. <Dena Hodges - Last Filed: 12/08/18 17:50> Objective Active Medications: Alprazolam (Xanax Tab*) 1 mg PO QID [facility] Last Admin: 12/08/18 16:36 Dose: 1 mg Hydrocortisone (Hytone Cream 1%*) 1 applic TOPICAL BID [facility] Last Admin: 12/08/18 08:26 Dose: 1 applic Hydromorphone HCl (Dilaudid Inj1s*) 0.5 mg IV SLOW PU Q4H PRN PRN Reason: PAIN - SEVERE Last Admin: 12/08/18 13:21 Dose: 0.5 mg Aztreonam 1 gm/ Sodium (Chloride) 50 mls @ 200 mls/hr IVPB Q8H [facility] Last Admin: 12/08/18 13:26 Dose: 200 mls/hr Levothyroxine Sodium (Synthroid Tab*) 125 mcg PO 0600 [facility] Last Admin: 12/08/18 05:34 Dose: 125 mcg Linezolid (Zyvox Tab*) 600 mg PO Q12H [facility] Last Admin: 12/08/18 08:26 Dose: 600 mg Mometasone Furoate/Formoterol Fumar (Dulera 200/5 Mdi*) 2 puff INH 0700,1900 [facility] Last Admin: 12/08/18 09:30 Dose: 2 puff Nystatin (Nystatin Top Powder*) 1 applic TOPICAL TID [facility] Last Admin: 12/08/18 13:26 Dose: 1 applic Oxycodone HCl (Roxycodone Tab*) 5 mg PO QID PRN PRN Reason: PAIN - SEVERE Last Admin: 12/08/18 17:27 Dose: 5 mg Pantoprazole Sodium (Protonix Tab*) 40 mg PO DAILY [facility] Last Admin: 12/08/18 08:26 Dose: 40 mg Pharmacy Profile Note (Coumadin Per Pharmacy*) 0 note FOLLOW UP .PER PHARMACY PROTOC [facility]; Protocol Senna (Senokot 8.6 Mg Tab*) 2 tab PO DAILY PRN PRN Reason: CONSTIPATION Last Admin: 12/06/18 16:12 Dose: 2 tab Sodium Chloride (Sodium Chloride 0.65% Nasal [place]*) 2 spray BOTH NARES .SEE INSTRUCTIONS [facility] Last Admin: 12/08/18 08:26 Dose: 2 spray Zinc Sulfate (Zinc-220 Cap*) 220 mg PO DAILY [facility] Last Admin: 12/08/18 08:26 Dose: 220 mg Vital Signs - 8 hr 12/08/18 12/08/18 12/08/18 10:34 12:00 12:29 Temperature 97.5 F Pulse Rate 86 Respiratory 20 24 16 Rate Blood Pressure 102/58 (mmHg) O2 Sat by Pulse 99 Oximetry 12/08/18 12/08/18 12/08/18 12:45 13:21 15:14 Temperature 97.8 F Pulse Rate 87 Respiratory 20 20 18 Rate Blood Pressure 101/46 (mmHg) O2 Sat by Pulse 100 Oximetry 12/08/18 12/08/18 16:36 17:27 Temperature Pulse Rate Respiratory 16 20 Rate Blood Pressure (mmHg) O2 Sat by Pulse Oximetry Result Diagrams: 12/08/18 06:07 12/08/18 06:07 Assess/Plan/Problems-Billing Assessment: Attestation Attending/Supervising Physician Comment: still awaiting MRI consult wound and surgery today hold warfarin for supratherapeutic INR add pain control
[2018-12-08 07:20] LABS: BUN/Creatinine Ratio 43.8 (8-20); Calcium 8.3 mg/dL (8.6-10.3); EGFR African American 93.3 (>60); EGFR Non-African American 77.1 (>60); Potassium 3.7 mmol/L (3.5-5.0)
[2018-12-08] MEDS: Mometasone/Formoter 200/5 MDI INH SCH ×3 (07:56→19:34)
[2018-12-08] MEDS: Linezolid TAB* 600 MG PO SCH ×2 (08:26→20:16)
[2018-12-08] MEDS: Nystatin TOP POWDER* 15 GM BTL TOPICAL SCH ×3 (08:26→20:16)
[2018-12-08] MEDS: Pantoprazole TAB * 40 MG TAB PO SCH (08:26)
[2018-12-08] MEDS: Zinc Sulfate CAP* 220 MG PO SCH (08:26)
[2018-12-08] MEDS: ALPRAZolam TAB* 0.5 MG PO SCH ×4 (08:26→20:14)
[2018-12-08] MEDS: HYDROmorphone INJ1* 1 MG/ML SYRINGE IV SLOW PU PRN (13:21)
--- NOTE | 2018-12-08 14:15 | PN ---
Progress Note - Progress Note Date of Service: 12/08/18 SOAP: Subjective: CC: wound infection HPI: 78 year old woman with decubitus ulcer admitted with increased drainage and pain, awaiting MRI. Pain about the same, no fever, rash or diarrhea per RN. Objective: Vital Signs Temp 36.4 C 12/08/18 12:00 Pulse 86 12/08/18 12:00 Resp 20 12/08/18 13:21 BP 102/58 12/08/18 12:00 Pulse Ox 99 12/08/18 12:00 Intake & Output 12/07/18 12/08/18 12/08/18 18:59 06:59 18:59 Intake Total 1541 180 320 Balance 1541 180 320 Intake: IV Fluids 1299 180 50 Aztreonam 100 50 NS (0.9%) 1299 80 IVPB 62 25 Aztreonam 62 25 Oral 180 0 245 Other: Estimated Void Large # Bowel Movements 1 Estimated Stool Amount Small Gen:awake, no distress HEENT: no thrush Heart:RRR no murmur Lungs:CTA BL Abd:+BS NTND soft Skin: no rash MSK: sacral decub bandaged Laboratory Results - last 24 hr 12/08/18 12/08/18 12/08/18 06:07 06:07 06:07 WBC 10.3 RBC 3.45 L Hgb 9.5 L Hct 29 L MCV 85 MCH 28 MCHC 33 RDW 16 H Plt Count 181 MPV 9.2 Neut % (Auto) 82.9 Lymph % (Auto) 9.5 Harmon % (Auto) 4.6 Eos % (Auto) 2.6 Baso % (Auto) 0.4 Absolute Neuts (auto) 8.6 H Absolute Lymphs (auto) 1.0 Absolute Monos (auto) 0.5 Absolute Eos (auto) 0.3 Absolute Basos (auto) 0.0 Absolute Nucleated RBC 0.0 Nucleated RBC % 0.0 INR (Anticoag Therapy) 3.66 H Sodium 144 Potassium 3.7 Chloride 117 H Carbon Dioxide 20 L Anion Gap 7 BUN 32 H Creatinine 0.73 Est GFR ( Amer) 93.3 Est GFR (Non-Af Amer) 77.1 BUN/Creatinine Ratio 43.8 H Glucose 101 H Calcium 8.3 L Assessment: 1. decubitus ulcer wound infection, MSSA by PCR, recent GBS by culture. 2. rash due to vancomycin, multiple other allergies 3. immobility 4. s/p AVR Plan: 1. continue linezolid 600 mg by merari twice daily for 28 days, she may need plastics eval in [place] for flap if this is to be closed.
--- NOTE | 2018-12-08 16:31 | CONS ---
CC: Dr. Ashok Fraser; Primary Care Doctor; Shelter * SURGICAL CONSULTATION REPORT: DATE OF CONSULT: 12/08/18 HISTORY OF PRESENT ILLNESS: The surgical department was contacted by the hospitalist service to evaluate Ms. Mahoney, a 78-year-old female, detention patient, with longstanding decubitus ulcer, who has been seen at the [facility], who was admitted on 12/06/18 to the hospitalist service for increasing drainage from the sacral decubitus. Infectious Disease was consulted and made recommendations for MSSA treatment. Cultures were taken. The patient had been undergoing collagen dressing changes in the wound center for treatment of osteomyelitis since August of 2017. The patient is nonambulatory. She is status post aortic valve replacement and remains on Coumadin. The patient has undergone negative pressure wound therapy treatment at the site. She has undergone Medihoney Alginate as well and had been on doxycycline prior to this admission. The patient has never gone to the OR for this. The patient is a poor historian, so the medical record from the wound center was reviewed and showed mostly unchanged sacral ulcer that tunnels at the 12 o'clock position approximately 6 to 8 cm. PAST MEDICAL HISTORY: Reviewed and includes AFib; history of PE; asthma and a CO2 retainer, on nasal cannula oxygen at all times; hypothyroidism. PAST SURGICAL HISTORY: Aortic valves and IVC filter placement as well as hernia repair. The patient does note that she still has a hernia. MEDICATIONS: List reviewed. ALLERGIES: List reviewed. REVIEW OF SYSTEMS: No fevers or chills. The patient is incontinent of stool, wears undergarment and incontinent of urine, suffers with dementia. PHYSICAL EXAM: Temperature 97.8, blood pressure 101/46, heart rate 87, respirations 18, O2 sat 100% on nasal cannula. Focused examination of the sacral area reveals a 3 x 2 cm opening that involves all underlying structures including muscle as well as periosteum. This tunnels approximately 8 cm superiorly. I can evaluate the sacrum and the periosteum is smooth and intact without any splintering. The drainage is serous. The old packing was removed today. The wound was coarsely debrided with gauze and bleeding was brisk and controlled with pressure by packing it with a Kerlix gauze today followed by 4x4s and an ABD pad and paper tape. Nurses were in the room helping with this care. IMPRESSION AND PLAN: Longstanding sacral ulcer in a patient who is nonambulatory with cardiac disease, on Coumadin. I agree with recommendation for MRI and evaluation; however, I do not anticipate wound like this healing under the circumstances with Ms. Mahoney. This may be a good opportunity to have a palliative discussion with Ms. Mahoney and her family members. At this point, I recommend wet- to-dry dressing with large Kerlix. This should be changed daily for now and ensure that we do not lose packing within the wound. She can continue to follow with the wound center. We will anticipate MRI results and she will continue to be on antibiotics. No surgical intervention as this does not require debridement or represents any abscess formation. No plastic surgery intervention would be performed under these circumstances either for rotational flap or otherwise. I discussed this with the nursing staff and an order for wet-to-dry dressings daily will be made. No additional followup by our department will be made except on a weekly basis. The patient can follow up in the wound center upon discharge. [id number]/[facility] #: [id number] GAEL
[2018-12-08] MEDS ORDERED: WARFARIN - No Order Today* 1 NOTE MISC FOLLOW UP ONE (17:00)
[2018-12-09] MEDS: HYDROmorphone INJ1* 1 MG/ML SYRINGE IV SLOW PU PRN ×3 (04:24→18:22)
[2018-12-09] MEDS: Levothyroxine TAB* 125 MCG TAB PO SCH (05:07)
[2018-12-09] MEDS: Aztreonam (*) 1 GM in NS 0.9% 50 ML* 50 ML IVPB SCH (05:07)
[2018-12-09 06:40] LABS: INR 4.29 (0.82-1.09)
--- NOTE | 2018-12-09 07:10 | PN ---
<Marian Alfonso - Last Filed: 12/09/18 12:31> Subjective Date of Service: 12/09/18 Interval History: No overnight issues. Labs: INR 4.29 despite stopping warfarin for 1 day Pt has no complain except asking for nurses to stay in her room forever. Objective Active Medications: Alprazolam (Xanax Tab*) 1 mg PO QID [facility] Last Admin: 12/08/18 20:14 Dose: 1 mg Hydrocortisone (Hytone Cream 1%*) 1 applic TOPICAL BID [facility] Last Admin: 12/08/18 20:15 Dose: 1 applic Hydromorphone HCl (Dilaudid Inj1s*) 0.5 mg IV SLOW PU Q4H PRN PRN Reason: PAIN - SEVERE Last Admin: 12/09/18 04:24 Dose: 0.5 mg Aztreonam 1 gm/ Sodium (Chloride) 50 mls @ 200 mls/hr IVPB Q8H [facility] Last Admin: 12/09/18 05:07 Dose: 200 mls/hr Levothyroxine Sodium (Synthroid Tab*) 125 mcg PO 0600 [facility] Last Admin: 12/09/18 05:07 Dose: 125 mcg Linezolid (Zyvox Tab*) 600 mg PO Q12H [facility] Last Admin: 12/08/18 20:16 Dose: 600 mg Mometasone Furoate/Formoterol Fumar (Dulera 200/5 Mdi*) 2 puff INH 0700,1900 [facility] Last Admin: 12/08/18 19:34 Dose: 2 puff Nystatin (Nystatin Top Powder*) 1 applic TOPICAL TID [facility] Last Admin: 12/08/18 20:16 Dose: 1 applic Oxycodone HCl (Roxycodone Tab*) 5 mg PO QID PRN PRN Reason: PAIN - SEVERE Last Admin: 12/08/18 23:24 Dose: 5 mg Pantoprazole Sodium (Protonix Tab*) 40 mg PO DAILY [facility] Last Admin: 12/08/18 08:26 Dose: 40 mg Pharmacy Profile Note (Coumadin Per Pharmacy*) 0 note FOLLOW UP .PER PHARMACY PROTOC [facility]; Protocol Senna (Senokot 8.6 Mg Tab*) 2 tab PO DAILY PRN PRN Reason: CONSTIPATION Last Admin: 12/06/18 16:12 Dose: 2 tab Sodium Chloride (Sodium Chloride 0.65% Nasal [place]*) 2 spray BOTH NARES .SEE INSTRUCTIONS [facility] Last Admin: 12/08/18 08:26 Dose: 2 spray Zinc Sulfate (Zinc-220 Cap*) 220 mg PO DAILY [facility] Last Admin: 12/08/18 08:26 Dose: 220 mg Vital Signs - 8 hr 12/08/18 12/08/18 12/09/18 23:15 23:24 01:25 Temperature Pulse Rate 79 Respiratory 20 17 19 Rate Blood Pressure 94/44 (mmHg) O2 Sat by Pulse 100 Oximetry 12/09/18 12/09/18 12/09/18 04:05 04:24 05:30 Temperature 97.3 F Pulse Rate 80 Respiratory 23 17 20 Rate Blood Pressure 101/52 (mmHg) O2 Sat by Pulse 99 Oximetry Oxygen Devices in Use Now: Nasal Cannula Exam: Comfortable. Heart S1S2 Lung: unable to ausculate well due to habitus Abdomen: soft, non tender Right arm rash subsiding Right breast ulcer exposed LL: no edema, calves supple Result Diagrams: 12/09/18 09:10 12/08/18 06:07 Assess/Plan/Problems-Billing Assessment: This is a 78 year old woman with a history of PE, TAVR, and chronic sacrum decubitus ulcer with underlying potential OM presents for increased drainage from the sacral wound and a new ulcer in right breast. - Patient Problems (1) Sacral decubitus ulcer Current Visit: Yes Status: Acute Code(s): L89.159 - PRESSURE ULCER OF SACRAL REGION, UNSPECIFIED STAGE SNOMED Code(s): 373692408 Comment: - osteomyelitis is of concern - plan for MRI scan to access decubitus ulcer, however unable to get it done so far as we need to check TVAR compatibility with [facility] - a/w wound team review - started on vancomycin, but noted allergic rashes with it, convert to linezolid in view of vancomycin allergy and prelim MSSA wound - consulted general surgery, no indication for debridement or flap surgery - suggested for linezolid for 4 weeks by ID (2) Decubitus skin ulcer Current Visit: Yes Status: Acute Code(s): L89.90 - PRESSURE ULCER OF UNSPECIFIED SITE, UNSPECIFIED STAGE SNOMED Code(s): 396568641 Comment: right breast ulcer new emerging with discharge a/w wound team followup (3) Anemia Current Visit: Yes Status: Acute Code(s): D64.9 - ANEMIA, UNSPECIFIED SNOMED Code(s): 092547786 Comment: anemia due to chronic disease + iron def (4) Atrial fibrillation Current Visit: Yes Status: Acute Code(s): I48.91 - UNSPECIFIED ATRIAL FIBRILLATION SNOMED Code(s): 04264619 Comment: currently sinus rhythm, rate controlled (5) History of pulmonary embolism Current Visit: Yes Status: Acute Code(s): Z86.711 - PERSONAL HISTORY OF PULMONARY EMBOLISM SNOMED Code(s): 046324618 Comment: on warfarin INR>3, stopped warfarin for 1 day so far. recheck inr tomorrow supratherapeutic INR potentially due to interaction of linezolid with warfarin. (6) Asthma Current Visit: Yes Status: Acute Code(s): J45.909 - UNSPECIFIED ASTHMA, UNCOMPLICATED SNOMED Code(s): 920081254 Comment: stable now (7) History of hypothyroidism Current Visit: Yes Status: Acute Code(s): Z86.39 - PERSONAL HISTORY OF ENDO , NUTRITIONAL AND METABOLIC DISEASE SNOMED Code(s): 320345242 Comment: on levothyroxine Status and Disposition: Continue inpatient medicine, plan for discharge soon Attestation Documenting Resident: Marian Alfonso Supervising Physician: Evan Hodges Attestation: This service has been performed in part by a resident under the direction of a teaching physician.I, Evan Hodges, performed the service, or was physically present during the critical, or meadows portions of the service, furnished by the resident. I participated in the management of the patient. <Dena Hodges - Last Filed: 12/09/18 15:00> Objective Active Medications: Alprazolam (Xanax Tab*) 1 mg PO QID [facility] Last Admin: 12/09/18 13:07 Dose: 1 mg Hydrocortisone (Hytone Cream 1%*) 1 applic TOPICAL BID [facility] Last Admin: 12/09/18 13:10 Dose: 1 applic Hydromorphone HCl (Dilaudid Inj1s*) 0.5 mg IV SLOW PU Q4H PRN PRN Reason: PAIN - SEVERE Last Admin: 12/09/18 13:23 Dose: 0.5 mg Levothyroxine Sodium (Synthroid Tab*) 125 mcg PO 0600 [facility] Last Admin: 12/09/18 05:07 Dose: 125 mcg Linezolid (Zyvox Tab*) 600 mg PO Q12H [facility] Last Admin: 12/09/18 08:38 Dose: 600 mg Mometasone Furoate/Formoterol Fumar (Dulera 200/5 Mdi*) 2 puff INH 0700,1900 [facility] Last Admin: 12/09/18 07:28 Dose: 2 puff Nystatin (Nystatin Top Powder*) 1 applic TOPICAL TID [facility] Last Admin: 12/09/18 13:09 Dose: 1 applic Oxycodone HCl (Roxycodone Tab*) 5 mg PO QID PRN PRN Reason: PAIN - SEVERE Last Admin: 12/09/18 10:54 Dose: 5 mg Pantoprazole Sodium (Protonix Tab*) 40 mg PO DAILY [facility] Last Admin: 12/09/18 08:38 Dose: 40 mg Pharmacy Profile Note (Coumadin Per Pharmacy*) 0 note FOLLOW UP .PER PHARMACY PROTOC [facility]; Protocol Pharmacy Profile Note (Coumadin No Order Today*) 1 note FOLLOW UP ONCE [facility] Stop: 12/09/18 23:59 Senna (Senokot 8.6 Mg Tab*) 2 tab PO DAILY PRN PRN Reason: CONSTIPATION Last Admin: 12/06/18 16:12 Dose: 2 tab Sodium Chloride (Sodium Chloride 0.65% Nasal [place]*) 2 spray BOTH NARES .SEE INSTRUCTIONS [facility] Last Admin: 12/08/18 08:26 Dose: 2 spray Zinc Sulfate (Zinc-220 Cap*) 220 mg PO DAILY [facility] Last Admin: 12/09/18 08:38 Dose: 220 mg Vital Signs - 8 hr 12/09/18 12/09/18 12/09/18 07:15 07:29 08:00 Temperature 97.7 F Pulse Rate 76 74 Respiratory 16 18 24 Rate Blood Pressure 93/49 (mmHg) O2 Sat by Pulse 100 92 Oximetry 12/09/18 12/09/18 12/09/18 08:38 10:54 11:12 Temperature Pulse Rate Respiratory 14 24 24 Rate Blood Pressure (mmHg) O2 Sat by Pulse Oximetry 12/09/18 12/09/18 13:07 13:23 Temperature Pulse Rate Respiratory 16 18 Rate Blood Pressure (mmHg) O2 Sat by Pulse Oximetry Result Diagrams: 12/09/18 09:10 12/08/18 06:07 Assess/Plan/Problems-Billing Assessment: Attestation Supervising Physician: Dena Hodges Attending/Supervising Physician Comment: I agree with Dr. Alfonso's assessment and plan and have seen and examined Ms. Mahoney myself. Ultimately, there is no surgical plan or indication (general or plastics per Dr. Munoz), and Dr. Hood recommends 28 days of po linezolid regardless, so she is stable for discharge back to care home in [place]. MRI was ordered but declined by radiology due to TAVR (bioprosthetic valve?), as was a CT with contrast due to anaphylaxis. Her care home would not accept her back today.
[2018-12-09] MEDS: Mometasone/Formoter 200/5 MDI INH SCH ×2 (07:28→19:59)
[2018-12-09] MEDS: Linezolid TAB* 600 MG PO SCH ×2 (08:38→22:16)
[2018-12-09] MEDS: Zinc Sulfate CAP* 220 MG PO SCH (08:38)
[2018-12-09] MEDS: Pantoprazole TAB * 40 MG TAB PO SCH (08:38)
[2018-12-09] MEDS: ALPRAZolam TAB* 0.5 MG PO SCH ×4 (08:38→22:15)
[2018-12-09] MEDS ORDERED: WARFARIN - No Order Today* 1 NOTE MISC FOLLOW UP SCH (09:00)
[2018-12-09 09:33] LABS: ABS Eosinophils 0.2 10^3/ul (0-0.6); ABS Lymphocytes 0.8 10^3/ul (1.0-4.8); ABS Monocytes 0.4 10^3/ul (0-0.8); ABS Neutrophils 6.7 10^3/ul (1.5-7.7); Eosinophil % 2.2 %; Hematocrit 32 % (35-47); Hemoglobin 9.9 g/dL (12.0-16.0); Lymphocyte % 9.8 %; Mean Corpuscular HGB Conc 31 g/dL (31-36); Mean Corpuscular Hemoglobin 27 pg (27-31); Mean Corpuscular Volume 87 fL (80-97); Mean Platelet Volume 9.1 fL (7.4-10.4); Platelet Count 165 10^3/uL (150-450); Red Blood Count 3.68 10^6 /uL (3.70-4.87); Red Cell Distribution Width 16 % (10-15); White Blood Count 8.1 10^3/uL (3.5-10.8)
[2018-12-09] MEDS: oxyCODONE TAB* 5 MG TAB PO PRN ×2 (10:54→17:21)
[2018-12-09] MEDS: Nystatin TOP POWDER* 15 GM BTL TOPICAL SCH ×3 (13:09→22:16)
[2018-12-09] MEDS: Hydrocortisone 1% CREAM* 30 GM TUBE TOPICAL SCH ×2 (13:10→22:16)
[2018-12-10] MEDS: oxyCODONE TAB* 5 MG TAB PO PRN ×2 (02:48→13:03)
[2018-12-10] MEDS: Levothyroxine TAB* 125 MCG TAB PO SCH (06:24)
[2018-12-10] MEDS: HYDROmorphone INJ1* 1 MG/ML SYRINGE IV SLOW PU PRN ×4 (06:24→21:21)
[2018-12-10] MEDS: Mometasone/Formoter 200/5 MDI INH SCH ×2 (06:56→19:36)
[2018-12-10 07:44] LABS: INR 4.47 (0.82-1.09)
[2018-12-10] MEDS: ALPRAZolam TAB* 0.5 MG PO SCH ×4 (08:38→20:13)
[2018-12-10] MEDS: Zinc Sulfate CAP* 220 MG PO SCH (08:39)
[2018-12-10] MEDS: Nystatin TOP POWDER* 15 GM BTL TOPICAL SCH ×3 (08:39→20:15)
[2018-12-10] MEDS: Linezolid TAB* 600 MG PO SCH ×2 (08:39→20:13)
[2018-12-10] MEDS: Pantoprazole TAB * 40 MG TAB PO SCH (08:39)
[2018-12-10] MEDS: Hydrocortisone 1% CREAM* 30 GM TUBE TOPICAL SCH ×2 (08:40→20:17)
[2018-12-10] MEDS ORDERED: WARFARIN - No Order Today* 1 NOTE MISC FOLLOW UP ONE (10:00)
--- NOTE | 2018-12-10 11:22 | PN ---
Subjective Date of Service: 12/10/18 Interval History: No overnight events. Remains afebrile, no new complaints. She continues to yell out but denies pain, anxiety, nausea, shortness of breath when I enter the room. Objective Active Medications: Alprazolam (Xanax Tab*) 1 mg PO QID [facility] Last Admin: 12/10/18 08:38 Dose: 1 mg Hydrocortisone (Hytone Cream 1%*) 1 applic TOPICAL BID [facility] Last Admin: 12/10/18 08:40 Dose: 1 applic Hydromorphone HCl (Dilaudid Inj1s*) 0.5 mg IV SLOW PU Q4H PRN PRN Reason: PAIN - SEVERE Last Admin: 12/10/18 10:24 Dose: 0.5 mg Levothyroxine Sodium (Synthroid Tab*) 125 mcg PO 0600 [facility] Last Admin: 12/10/18 06:24 Dose: 125 mcg Linezolid (Zyvox Tab*) 600 mg PO Q12H [facility] Last Admin: 12/10/18 08:39 Dose: 600 mg Mometasone Furoate/Formoterol Fumar (Dulera 200/5 Mdi*) 2 puff INH 0700,1900 [facility] Last Admin: 12/10/18 06:56 Dose: 2 puff Nystatin (Nystatin Top Powder*) 1 applic TOPICAL TID [facility] Last Admin: 12/10/18 08:39 Dose: 1 applic Oxycodone HCl (Roxycodone Tab*) 5 mg PO QID PRN PRN Reason: PAIN - SEVERE Last Admin: 12/10/18 02:48 Dose: 5 mg Pantoprazole Sodium (Protonix Tab*) 40 mg PO DAILY [facility] Last Admin: 12/10/18 08:39 Dose: 40 mg Pharmacy Profile Note (Coumadin Per Pharmacy*) 0 note FOLLOW UP .PER PHARMACY PROTOC [facility]; Protocol Senna (Senokot 8.6 Mg Tab*) 2 tab PO DAILY PRN PRN Reason: CONSTIPATION Last Admin: 12/06/18 16:12 Dose: 2 tab Sodium Chloride (Sodium Chloride 0.65% Nasal [place]*) 2 spray BOTH NARES .SEE INSTRUCTIONS [facility] Last Admin: 12/08/18 08:26 Dose: 2 spray Zinc Sulfate (Zinc-220 Cap*) 220 mg PO DAILY [facility] Last Admin: 08/11/19 08:39 Dose: 220 mg Vital Signs - 8 hr 12/10/18 12/10/18 12/10/18 03:51 06:24 06:32 Temperature 98.1 F Pulse Rate 96 Respiratory 18 20 20 Rate Blood Pressure 96/41 (mmHg) O2 Sat by Pulse 97 Oximetry 12/10/18 12/10/18 12/10/18 06:58 07:15 08:00 Temperature 98.3 F Pulse Rate 87 84 Respiratory 18 16 18 Rate Blood Pressure 102/44 (mmHg) O2 Sat by Pulse 98 99 Oximetry 12/10/18 12/10/18 12/10/18 08:37 08:38 10:24 Temperature Pulse Rate Respiratory 18 18 17 Rate Blood Pressure (mmHg) O2 Sat by Pulse Oximetry Oxygen Devices in Use Now: Nasal Cannula Appearance: alert, calm when someone is in the room with her, nontoxic appearing Eyes: No Scleral Icterus Ears/Nose/Mouth/Throat: NL Teeth, Lips, Gums Neck: NL Appearance and Movements; NL JVP Respiratory: - Cardiovascular: RRR, - - midsystolic murmur RUSB Abdominal: NL Sounds; No Tenderness; No Distention Lymphatic: No Cervical Adenopathy Skin: - - superficial ulcerations on lateral right breast without drainage. deep open decub midsacrum, 3cm wide and at least 5cm deep with mild surrounding erythema and minimal drainage Result Diagrams: 12/09/18 09:10 12/08/18 06:07 Microbiology and Other Data: Microbiology 12/06/18 04:14 Skin and Soft Tissue MRSA/MSSA (PCR - Final Wound - Wound Mrsa Negative S.aureus Positive Gram Stain - Final Wound Culture - Final Strep Agalactiae - (Group B) Streptococcus Anginosus Staphylococcus Aureus 12/05/18 22:55 Aerobic Blood Culture - Preliminary Blood Venous No Growth Day 4 Anaerobic Blood Culture - Preliminary No Growth Day 4 12/05/18 22:46 Aerobic Blood Culture - Preliminary Blood Venous No Growth Day 4 Anaerobic Blood Culture - Preliminary No Growth Day 4 12/06/18 00:20 Urine Culture - Final Urine No Growth (<1,000 CFU/mL) 12/06/18 03:33 Nasal Screen MRSA (PCR) - Final Nasal Mrsa Not Detected Assess/Plan/Problems-Billing Assessment: This is a 78 year old woman with history of afib and PE on warfarin, TAVR, and chronic sacral decub for which she has been seeing wound and ID, presented to the ED on 12/06 for increased drainage and pain from the ulcer, was found to have a leukocytosis and tachycardia and was started on antibiotics for cellulitis +/ - osteomyelitis - Patient Problems (1) Sacral decubitus ulcer Current Visit: Yes Status: Acute Code(s): L89.159 - PRESSURE ULCER OF SACRAL REGION, UNSPECIFIED STAGE SNOMED Code(s): 093472152 Comment: +/- osteomyelitis, but imaging has not been possible due to anaphylaxis to dye and radiology unwilling to do MRI given her TAVR ID and surgery consulted; ID recommended 28 days linezolid regardless, and surgery suggested no role for either general or plastic surgery based on these recommendations, she is stable for discharge on po linezolid with ID follow up (2) Decubitus skin ulcer Current Visit: Yes Status: Acute Code(s): L89.90 - PRESSURE ULCER OF UNSPECIFIED SITE, UNSPECIFIED STAGE SNOMED Code(s): 617293133 Comment: of right breast apply barrier cream (3) Supratherapeutic INR Current Visit: Yes Status: Acute Code(s): R79.1 - ABNORMAL COAGULATION PROFILE SNOMED Code(s): 634940253 Comment: warfarin has been on hold x 3 days likely related to linezolid (4) Anemia Current Visit: Yes Status: Acute Code(s): D64.9 - ANEMIA, UNSPECIFIED SNOMED Code(s): 881691693 Comment: anemia due to chronic disease + iron def (5) Atrial fibrillation Current Visit: Yes Status: Acute Code(s): I48.91 - UNSPECIFIED ATRIAL FIBRILLATION SNOMED Code(s): 54983299 Comment: currently sinus rhythm, rate controlled (6) History of pulmonary embolism Current Visit: Yes Status: Acute Code(s): Z86.711 - PERSONAL HISTORY OF PULMONARY EMBOLISM SNOMED Code(s): 764054109 Comment: on warfarin Status and Disposition: [facility] was unable to take her back yesterday due to staffing issues; will try again today
--- NOTE | 2018-12-10 21:50 | DS ---
CC: Dr. Bar Rdz; Dr. Ashok Fraser * DISCHARGE SUMMARY: DATE OF ADMISSION: 12/06/18 DATE OF ANTICIPATED DISCHARGE: 12/11/18 PRINCIPAL DISCHARGE DIAGNOSES: 1. Sacral cellulitis/osteomyelitis. 2. Supratherapeutic INR. 3. Right breast wound. SECONDARY DISCHARGE DIAGNOSES: 1. Atrial fibrillation. 2. History of pulmonary embolism, on warfarin. 3. History of asthma, on 2 L of oxygen. 4. Transcatheter aortic valve replacement. 5. Inferior vena cava filter. MEDICATIONS: 1. Synthroid 25 mcg daily. 2. Symbicort 2 puffs inhaled b.i.d. 3. Saline nasal spray 2 sprays both nares. 4. Oxycodone 5 mg four times a day p.r.n. pain. 5. Omeprazole 20 mg daily. 6. Metoprolol 25 mg b.i.d. 7. Mag-Ox 400 mg daily. 8. Xanax 1 tab four times a day. 9. Warfarin, is currently on hold. 10. Linezolid 600 mg b.i.d. for 23 more days. PHYSICAL EXAMINATION: Please see my physical exam from 12/10/18. HOSPITAL COURSE BY PROBLEMS: 1. Sacral cellulitis/osteomyelitis. Ms. Mahoney presented to the emergency department from [facility] with increased pain and drainage from a sacral decubitus ulcer. Please see the H and P dictated by Dr. Yeager for a complete description of the history of present illness. Overall, Ms. Mahoney has had this decubitus ulcer for almost a year and has been following with the wound center and Infectious Diseases and has been on several courses of antibiotics but none currently and in the emergency department, she was admitted for concern for osteomyelitis. She had mild leukocytosis and mild tachycardia, so she was started on vancomycin and aztreonam. Given her history of antibiotic allergies, Dr. Fraser was consulted and saw her on 12/06/18 and he recommended continuing vancomycin and aztreonam. Then, on 12/08/18, he reevaluated her and recommended switching to linezolid p.o. based on MSSA PCR and recent GBS culture. He wondered if Plastic evaluation in [place] maybe warranted. She was unable to get a CT of her pelvis with contrast due to history of anaphylaxis to contrast, so we attempted to get an MRI; however, an MRI could not be performed due to a history of TAVR. This was per the radiology department. Based on our limited ability to get imaging, we consulted General Surgery and Dr. Munoz came to evaluate her on 12/08/18. He recommended no surgical management regardless of what imaging would show and also did not recommend plastic surgery evaluation. He did make recommendations for wound care and recommended wet to dry dressings daily with a large Kerlix and that she should follow up with the Wound Center. She has been afebrile and without leukocytosis, so she is stable for discharge back to [facility]. She will need follow-up with the Wound Center and with Infectious Diseases. Her pain was managed with an increased dose of oxycodone. 2. Supratherapeutic INR. Her warfarin has been on hold for the last 3 days. However, her INR is rising likely related to the linezolid. This should continue to be on hold until her INR is less than 3. The indication for warfarin is history of pulmonary embolism and atrial fibrillation. 3. Right breast ulcer. This also represents a decubitus skin ulcer. She needs to be turned frequently and have barrier cream applied to the lateral breast. 4. Atrial fibrillation. She remained in sinus rhythm during this hospitalization. 5. Anemia. Her hemoglobin at discharge is 9.9. Her iron studies were obtained during this admission and showed iron deficiency versus chronic disease , so she was started on ferrous sulfate. CONDITION AT THE TIME OF DISCHARGE: Fair. DISPOSITION: Allison is being discharged back to [facility]. I have discussed this plan with her daughter, Melani, who is her healthcare proxy. She needs followup with Dr. Fraser and also the Wound Center. She should have daily wet to dry Kerlix dressings on her sacrum and barrier cream and frequent turnings for the breast ulcer. OTHER FOLLOWUPS NEEDED: She needs to have daily INRs until her INR is less than 3, at which point her Coumadin can be restarted. [id number]/[facility] #: [id number] MTDD
[2018-12-11] MEDS: Levothyroxine TAB* 125 MCG TAB PO SCH (06:19)
[2018-12-11 06:50] LABS: INR 3.92 (0.82-1.09)
[2018-12-11] MEDS: Mometasone/Formoter 200/5 MDI INH SCH (07:34)
[2018-12-11] MEDS ORDERED: WARFARIN - No Order Today* 1 NOTE MISC FOLLOW UP SCH (09:00)
[2018-12-11] MEDS ORDERED: Ferrous Sulfate TAB* 325 MG PO SCH (09:00)
[2018-12-11] MEDS: Zinc Sulfate CAP* 220 MG PO SCH (09:39)
[2018-12-11] MEDS: Pantoprazole TAB * 40 MG TAB PO SCH (09:39)
[2018-12-11] MEDS: ALPRAZolam TAB* 0.5 MG PO SCH ×2 (09:39→13:15)
[2018-12-11] MEDS: Linezolid TAB* 600 MG PO SCH (09:39)
[2018-12-11] MEDS: Nystatin TOP POWDER* 15 GM BTL TOPICAL SCH (09:40)
[2018-12-11] MEDS: Hydrocortisone 1% CREAM* 30 GM TUBE TOPICAL SCH (09:40)
[2018-12-11 14:49] VITALS: BP 92/45
--- NOTE | 2018-12-11 18:49 | DCNOTE ---
Subjective Date of Service: 12/11/18 Interval History: Seen and examined Moaning but denies pain or anxiety Objective Vital Signs - 8 hr 12/11/18 12/11/18 12/11/18 11:15 12:57 13:15 Temperature 97.8 F Pulse Rate 81 Respiratory 18 18 18 Rate Blood Pressure 104/41 (mmHg) O2 Sat by Pulse 100 Oximetry 12/11/18 12/11/18 14:48 14:49 Temperature 98.6 F Pulse Rate 95 Respiratory 18 18 Rate Blood Pressure 92/45 (mmHg) O2 Sat by Pulse 100 Oximetry Oxygen Devices in Use Now: None Appearance: older than stated age Result Diagrams: 12/09/18 09:10 12/08/18 06:07 Microbiology and Other Data: Microbiology 12/06/18 04:14 Skin and Soft Tissue MRSA/MSSA (PCR - Final Wound - Wound Mrsa Negative S.aureus Positive Gram Stain - Final Wound Culture - Final Strep Agalactiae - (Group B) Streptococcus Anginosus Staphylococcus Aureus 12/05/18 22:55 Aerobic Blood Culture - Preliminary Blood Venous No Growth Day 4 Anaerobic Blood Culture - Preliminary No Growth Day 4 12/05/18 22:46 Aerobic Blood Culture - Preliminary Blood Venous No Growth Day 4 Anaerobic Blood Culture - Preliminary No Growth Day 4 12/06/18 00:20 Urine Culture - Final Urine No Growth (<1,000 CFU/mL) 12/06/18 03:33 Nasal Screen MRSA (PCR) - Final Nasal Mrsa Not Detected Assess/Plan/Problems-Billing Assessment: This is a 78 year old woman with history of afib and PE on warfarin, TAVR, and chronic sacral decub for which she has been seeing wound and ID, presented to the ED on 12/06 for increased drainage and pain from the ulcer, was found to have a leukocytosis and tachycardia and was started on antibiotics for cellulitis +/ - osteomyelitis No change from discharge by Dr. Hodges yesterday No change in clinical status overnight Status and Disposition: [facility]
--- NOTE | 2018-12-21 12:18 | PN ---
Progress Note - Progress Note Date of Service: 12/11/18 Note: Addendum to discharge note from 12/11/2017 Condition on discharge: Stable
== END 2018-12-11 15:15 | DRG 539 ==
LOC: ED 22:16 → MEDTELE 12-06 04:06 → MED 12-10 20:16
PROVIDERS: ADMIT Internal Medicine; ATTEND Internal Medicine
DX: M46.28 Osteomyelitis of vertebra, sacral and sacrococcygeal region (principal); L89.154 Pressure ulcer of sacral region, stage 4; L03.818 Cellulitis of other sites; B95.61 Methicillin susceptible Staphylococcus aureus infection as the cause of diseases classified elsewhere; I48.91 Unspecified atrial fibrillation; J44.9 Chronic obstructive pulmonary disease, unspecified; Z99.81 Dependence on supplemental oxygen; L89.899 Pressure ulcer of other site, unspecified stage; R79.1 Abnormal coagulation profile; B95.1 Streptococcus, group B, as the cause of diseases classified elsewhere; D50.9 Iron deficiency anemia, unspecified; K43.2 Incisional hernia without obstruction or gangrene; E03.9 Hypothyroidism, unspecified; L27.1 Localized skin eruption due to drugs and medicaments taken internally; T36.8X5A Adverse effect of other systemic antibiotics, initial encounter; Y92.230 Patient room in hospital as the place of occurrence of the external cause; E66.9 Obesity, unspecified; Z95.2 Presence of prosthetic heart valve; Z86.711 Personal history of pulmonary embolism; Z79.01 Long term (current) use of anticoagulants; Z79.891 Long term (current) use of opiate analgesic; Z79.51 Long term (current) use of inhaled steroids; Z79.899 Other long term (current) drug therapy; Z88.1 Allergy status to other antibiotic agents; Z88.5 Allergy status to narcotic agent; Z88.0 Allergy status to penicillin; Z88.8 Allergy status to other drugs, medicaments and biological substances; Z68.39 Body mass index [BMI] 39.0-39.9, adult
CPT/HCPCS: 36415; 71045; 72220; 80048; 80053; 81003; 81015; 82728; 83540; 83550; 83605; 84484; 85025; 85610; 85652; 85730; 86140; 87040; 87070; 87077; 87086; 87186; 87205; 87640; 87641; 93005; 93306; 94640; 99214; 99284; A9270-GY; G0463; J1170; J1200; J3370

== ENCOUNTER 2019-01-15 20:39 | Inpatient (IN) | payer MEDICARE, MEDICAID ==
--- OUTSIDE RECORDS SUMMARY | 2019-01-15 21:00 | XMS REPORT | Continuity of Care Document ---
:1940 External Reference #:[id number] Author Name Ashok Hood M.D. (transmitted by agent of provider Che Hernandez ) Address [address] [place] [id number] Problems Description No Information Available Social History Type Date Description Comments Sex Unknown Tobacco Use Start: Unknown Patient has never smoked Smoking Status Reviewed: 12/25/18 Patient has never smoked Allergies, Adverse Reactions, Alerts Active Allergies Reaction Severity Comments Date Chlordiazepoxide 06/26/2018 Ciprofloxacin 06/26/2018 Codeine 06/26/2018 Lidocaine 06/26/2018 [place] 06/26/2018 Metronidazole 06/26/2018 Propafenone 06/26/2018 Bactrim 06/26/2018 Chlordiazepoxide 06/26/2018 Morphine 06/26/2018 Penicillin 06/26/2018 Caffeine 06/26/2018 Contrast Dye 06/26/2018 Medications Active Medications SIG Qnty Indications Ordering Date Provider Oxycodone HCL 1 tabs by mouth Unknown 5mg Tablets every 4-6 hours as needed Magnesium Oxide 1 by mouth once Unknown 400mg daily Capsules Acidophilus 2 tabs by mouth in Unknown Lactobacillus the morning Capsules Ipratropium 1 unit inhaled Unknown [place]/Albuterol twice daily Sulfate 0.5-2.5(3)mg/3ML Solution Guaifenesin-DM 5 milliliters by Unknown mouth every 8 hours 100-10mg/5ML Liquid as needed Gabapentin 1 by mouth at Unknown 300mg Capsules bedtime Linezolid one by mouth twice Unknown 600mg Tablets a day (CMC DC) Acetaminophen Extra 2 tabs by mouth Unknown Strength every 8 hours as 500mg Tablets needed for pain or fever Zinc-220 take one Unknown 220(50Zn) mg capsule/tablet Capsules daily by mouth Triamcinolone apply twice a day Unknown Acetonide until clear 0.1% Cream Symbicort 2 puff twice a day Unknown 160-4.5mcg/Act Aerosol Saline Nasal [place] 2 spray in each Unknown 0.65% nostril every 4 Solution hours as needed for moisture Promod 60 ml PO 3 x daily Unknown Liquid for wound healing Orajel Mouth-Aid apply to mucous Unknown 20% Gel membrane every 20 minutes as needed for gum pain Nystatin apply Unknown Powder underarm/breast/francisco in topically 3 x per day Omeprazole 1 by mouth every Unknown 20mg Capsules day DR Aspir-Low 1 by mouth every Unknown 81mg Tablets DR day Levothyroxine Sodium 1 by mouth every Unknown day 125mcg Tablets Ferrous Sulfate 1 by mouth every Unknown 325(65Fe) day mg Tablets Metoprolol Tartrate 1 tab by mouth Unknown 25mg Tablets Albuterol Sulfate once daily Unknown (2.5mg/3ML) 0.083% Nebulizer Warfarin Sodium take as directed Unknown 1mg (per Mar from Tablets [place], pt now taking 2mg every evening for Pe) Alprazolam 1 po qid prn Unknown 1mg Tablets History Medications Doxycycline Hyclate 1 by mouth 28salvatore Mendoza, 12/04/2018 - 100mg twice a day MACK, RN, [employer] 12/06/2018 Capsules Doxycycline Hyclate 1 by mouth sue Rosa 07/26/2018 - 100mg twice a day Sabine Hood 08/20/2018 Capsules Immunizations Description No Information Available Vital Signs Date Vital Result Comment 12/25/2018 2:15pm Height 56 inches 4'8" Weight 189.00 lb per dtr Heart Rate 80 /min BP Systolic Sitting 92 mmHg BP Diastolic Sitting 56 mmHg Respiratory Rate 14 /min Body Temperature 98.5 F BMI (Body Mass Index) 42.4 kg/m2 10/27/2018 9:53am Height 56 inches 4'8" Heart Rate 86 /min BP Systolic Sitting 105 mmHg BP Diastolic Sitting 60 mmHg Respiratory Rate 14 /min Body Temperature 97.7 F O2 % BldC Oximetry 93 % Results Test Date Facility Test Result H/L Range Note Wound 11/20/2018 [facility] Wound/Misc SEE RESULT 1 Culture/[facility] [address] [address] Stain [phone] 1 SEE RESULT BELOW Name: ALLISON MAHONEY : [address]: Esther Mendoza NP Acct: [id number] Unit: [id number] AGE: 77 Location: WOUND Re11/20/18 SEX: F Status: REG REF SPEC: [id number] MARSHALL: 11/20/18-1419 [facility] [address]: Esther Mendoza NP REQ: [id number] RECD: 11/20/181405 STATUS: JOSELUIS LOOMIS DR: Bar Rdz MD _ SOURCE: WOUND SPDESC: ORDERED: Culture Stain COMMENTS: SACRAL WOUND Procedure Result Reported Site Wound/Misc Gram Stain Final 11/20/18- 1602 ML 3+ Neutrophils 1+ Nucleated Cells No Organisms Seen Wound/Misc Culture Final 11/22/18- 1225 ML Organism 1 STREP AGALACTIAE - (GROUP B) Quantity 2+ Organism 2 NORMAL SHYANN Quantity 1+ 1. STREP AGALACTIAE - (GROUP B) M.I.C. RX --------- ------ Ampicillin <=0.25 S Penicillin <=0.12 S Clindamycin R Levofloxacin 1 S Linezolid 2 S * Moxifloxacin <=0.25 S * Quinupristin/Dalfopristin <=0.25 S Tetracycline <=1 S Doxycycline - Deduced S * Minocycline - Deduced S Tigecycline <=0.12 S Vancomycin <=0.5 S Imipenem-Deduced S * Ampicillin/Sulbactam-Deduced S Cefazolin-Deduced S CONTINUED ON NEXT PAGE DEPARTMENT OF PATHOLOGY, [address] [place] [address] Chauncey Alanis M.D. Director [facility] # [id number] Patient: ALLISON MAHONEY [id number] (Continued) Specimen: [id number] Collected: 11/20/18 Received: 11/20/18 (Continued) Procedure Result Reported Site Wound/Misc Culture Final (continued) * These antibiotics are not available in the [facility] Formulary Contact the Microbiology Department for any additional antibiotic reporting. * ML - Main Lab . END OF REPORT DEPARTMENT OF PATHOLOGY, [address] [place] [address] Chauncey Alanis M.D. Director [facility] # [id number] Procedures Date Code Description Status 12/18/2018 16678 Removal Devitalization Tissue Wound Less Than Equal 20 Completed Square CM 12/07/2018 00514 ECHO Transthorasic Realtime 2D W Doppler & Color Flow Hosp Completed Medical Devices Description No Information Available Encounters Type Date Location Provider Dx Diagnosis Office Visit 12/08/2018 [facility] Shea Peacockmadelin Rosa L89.159 Pressure ulcer of 8:47a Infectious Sabine Hood sacral region, Diseases unspecified stage Office Visit 12/08/2018 [facility] Wood[facility] Munoz, L89.154 Pressure ulcer of 7:00a [facility], FACS sacral region, stage 4 Office Visit 12/06/2018 [facility] Shea Peacockmadelin Rosa L89.159 Pressure ulcer of 11:06a Infectious Sabine Hood sacral region, Diseases unspecified stage B95.1 Streptococcus, group B, causing diseases classd elswhr Office Visit 11/20/2018 1:30p Wound Care Azar Eng.304 Pressure ulcer of [facility] WES GIRON, DEBORAH unspecified buttock, stage 4 M46.28 Osteomyelitis of vertebra, sacral and sacrococcygeal region E46 Unspecified protein-calorie malnutrition Office Visit 11/06/2018 1:30p Wound Care Azar Eng.304 Pressure ulcer of [facility] AT [facility] WES GIRON, DEBORAH unspecified buttock, stage 4 M46.28 Osteomyelitis of vertebra, sacral and sacrococcygeal region Office Visit 10/27/2018 10:00a [facility] Barby Moon L89.154 Pressure ulcer For Infectious MELVI Garcia of sacral Diseases region, stage 4 M46.28 Osteomyelitis of vertebra, sacral and sacrococcygeal region Office Visit 10/23/2018 1:00p Wound Care Azar Eng.304 Pressure ulcer of [facility] AT [facility] WES GIRON, DEBORAH unspecified buttock, stage 4 M46.28 Osteomyelitis of vertebra, sacral and sacrococcygeal region R53.81 Other malaise E46 Unspecified protein-calorie malnutrition D64.9 Anemia, unspecified J45.909 Unspecified asthma, uncomplicated Office Visit 10/02/2018 [facility]ound [facility] Azar Eng.304 Pressure ulcer of 1:00p [facility] WES GIRON, [employer] unspecified buttock, stage 4 Office Visit 09/21/2018 [facility] M46.28 Osteomyelitis of 10:30a For Eula Garcia NP vertebra, sacral Diseases and sacrococcygeal region E46 Unspecified protein-calorie malnutrition L89.159 Pressure ulcer of sacral region, unspecified stage Office Visit 09/11/2018 1:00p Wound Care Esther Mendoza, L89.304 Pressure ulcer of [facility] AT [facility] WES GIRON, [employer] unspecified buttock, stage 4 M46.28 Osteomyelitis of vertebra, sacral and sacrococcygeal region E46 Unspecified protein-calorie malnutrition Office Visit 08/28/2018 1:30p Wound Care Esther Mendoza L89.304 Pressure ulcer of [facility] AT [facility] WES GIRON, [employer] unspecified buttock, stage 4 M46.28 Osteomyelitis of vertebra, sacral and sacrococcygeal region D64.9 Anemia, unspecified E46 Unspecified protein-calorie malnutrition Office Visit 08/21/2018 [facility] L89.150 Pressure ulcer 2:30p For Eula Garcia NP of sacral Diseases region, unstageable Office Visit 07/26/2018 [facility] Ashok Rosa L89.150 Pressure ulcer 11:30a For Infectious Sabine Hood of sacral Diseases region, unstageable Office Visit 07/17/2018 Wound Care Esther Mendoza, L89.304 Pressure ulcer 1:00p [facility] WES GIRON, [employer] of unspecified buttock, stage 4 M46.28 Osteomyelitis of vertebra, sacral and sacrococcygeal region E46 Unspecified protein-calorie malnutrition Office Visit 07/03/2018 1:00p Wound Care Esther Mendoza L89.304 Pressure ulcer of [facility] AT [facility] WES GIRON, [employer] unspecified buttock, stage 4 M46.28 Osteomyelitis of vertebra, sacral and sacrococcygeal region E46 Unspecified protein-calorie malnutrition Assessments Date Code Description Provider 12/18/2018 L89.154 Pressure ulcer of sacral region, Esther Mendoza DNP, RN , stage 4 [employer] 12/10/2018 L89.159 Pressure ulcer of sacral region, Dena Hodges DO unspecified stage 12/10/2018 L89.899 Pressure ulcer of other site, Dena Senner, DO unspecified stage 12/10/2018 R79.1 Abnormal coagulation profile Dnea Senner, DO 12/10/2018 D64.9 Anemia, unspecified Dena Senner, DO 12/10/2018 I48.91 Unspecified atrial fibrillation Dena Senner, DO 12/10/2018 Z86.711 Personal history of pulmonary Dena Senner, DO embolism 12/09/2018 L89.159 Pressure ulcer of sacral region, Dena Senner, DO unspecified stage 12/09/2018 L89.899 Pressure ulcer of other site, Dena Senner, DO unspecified stage 12/09/2018 D64.9 Anemia, unspecified Dena Senner, DO 12/09/2018 I48.91 Unspecified atrial fibrillation Dena Senner, DO 12/09/2018 Z86.711 Personal history of pulmonary Dena Senner, DO embolism 12/09/2018 Z86.39 Personal history of other Dena Senner, DO endocrine, nutritional and metabolic disease 12/09/2018 J45.909 Unspecified asthma, uncomplicated Dena Senner, DO 12/08/2018 L89.159 Pressure ulcer of sacral region, Ashok Hood M.D. unspecified stage 12/08/2018 L89.159 Pressure ulcer of sacral region, Dena Senner, DO unspecified stage 12/08/2018 L89.899 Pressure ulcer of other site, Dena Senner, DO unspecified stage 12/08/2018 L89.154 Pressure ulcer of sacral region, Woody Munoz MD, FACS stage 4 12/08/2018 D64.9 Anemia, unspecified Dena Senner, DO 12/08/2018 I48.91 Unspecified atrial fibrillation Dena Senner, DO 12/08/2018 Z86.711 Personal history of pulmonary Dena Senner, DO embolism 12/08/2018 Z86.39 Personal history of other Dena Senner, DO endocrine, nutritional and metabolic disease 12/08/2018 J45.909 Unspecified asthma, uncomplicated Dena Senner, DO 12/07/2018 L89.159 Pressure ulcer of sacral region, Dena Senner, DO unspecified stage 12/07/2018 I50.9 Heart failure, unspecified Dario Louise M.D. 12/07/2018 L89.899 Pressure ulcer of other site, Dena Hodges, unspecified stage 12/07/2018 D64.9 Anemia, unspecified Dena Hodges, DO 12/07/2018 I48.91 Unspecified atrial fibrillation Dena Hodges, DO 12/07/2018 Z86.711 Personal history of pulmonary Dena Hodges, DO embolism 12/07/2018 Z86.39 Personal history of other Dena Hodges, DO endocrine, nutritional and metabolic disease 12/06/2018 L89.159 Pressure ulcer of sacral region, Socorro Smith M.D. unspecified stage 12/06/2018 I48.91 Unspecified atrial fibrillation Socorro Smith M.D. 12/06/2018 J45.909 Unspecified asthma, uncomplicated Socorro Smith M.D. 12/06/2018 L89.159 Pressure ulcer of sacral region, Ashok Hood M.D. unspecified stage 12/06/2018 Z86.711 Personal history of pulmonary Socorro Smith M.D. embolism 12/06/2018 B95.1 Streptococcus, group B, as the Ashok Hood M.D. cause of diseases classified elsewhere 12/04/2018 L89.304 Pressure ulcer of unspecified Esther Mendoza DNP, RN, buttock, stage 4 [facility] 12/04/2018 M46.28 Osteomyelitis of vertebra, sacral Esther Mendoza DNP, RN , and sacrococcygeal region [facility] 12/04/2018 E46 Unspecified protein-calorie Esther Mendoza DNP RN, malnutrition [facility] 11/20/2018 L89.304 Pressure ulcer of unspecified Esther Mendoza DNP, RN, buttock, stage 4 [facility] 11/20/2018 M46.28 Osteomyelitis of vertebra, sacral Esther Mendoza DNP, RN , and sacrococcygeal region [facility] 11/20/2018 E46 Unspecified protein-calorie Esther Mendoza DNP, RN, malnutrition [facility] 11/06/2018 L89.304 Pressure ulcer of unspecified Esther Mendoza DNP, RN, buttock, stage 4 [facility] 11/06/2018 M46.28 Osteomyelitis of vertebra, sacral Esther Mendoza DNP, RN , and sacrococcygeal region [facility] 10/27/2018 L89.154 Pressure ulcer of sacral region, Barby Red Garcia , [employer] stage 4 10/27/2018 M46.28 Osteomyelitis of vertebra, sacral Barby Garcia , [employer] and sacrococcygeal region 10/23/2018 L89.304 Pressure ulcer of unspecified Esther Mendoza DNP, RN, buttock, stage 4 [facility] 10/23/2018 M46.28 Osteomyelitis of vertebra, sacral Esther Mendoza DNP, RN , and sacrococcygeal region [facility] 10/23/2018 R53.81 Other malaise Esther Mendoza DNP, RN, [facility] 10/23/2018 E46 Unspecified protein-calorie Esther Mendoza DNP, RN, malnutrition [facility] 10/23/2018 D64.9 Anemia, unspecified Esther Mendoza DNP, RN, [facility] 10/23/2018 J45.909 Unspecified asthma, uncomplicated Esther Mendoza DNP, RN, [facility] 10/02/2018 L89.304 Pressure ulcer of unspecified Esther Mendoza DNP, RN, buttock, stage 4 [facility] 09/21/2018 M46.28 Osteomyelitis of vertebra, sacral Barby Garcia , [employer] and sacrococcygeal region 09/21/2018 E46 Unspecified protein-calorie Barby Red Garcia, [employer] malnutrition 09/21/2018 L89.159 Pressure ulcer of sacral region, Barby Jennifereblary Garcia , [employer] unspecified stage 09/11/2018 L89.304 Pressure ulcer of unspecified Esther Mendoza DNP, RN, buttock, stage 4 [facility] 09/11/2018 M46.28 Osteomyelitis of vertebra, sacral Esther Mendoza DNP, RN , and sacrococcygeal region [facility] 09/11/2018 E46 Unspecified protein-calorie Esther Mendoza DNP, RN, malnutrition [facility] 08/28/2018 L89.304 Pressure ulcer of unspecified Esther Mendoza DNP, RN, buttock, stage 4 [employer] 08/28/2018 M46.28 Osteomyelitis of vertebra, sacral Esthre Mendoza DNP, RN , and sacrococcygeal region [facility] 08/28/2018 D64.9 Anemia, unspecified Esther Mendoza DNP, RN, [employer] 08/28/2018 E46 Unspecified protein-calorie Esther Mendoza DNP, RN, malnutrition [employer] 08/21/2018 L89.150 Pressure ulcer of sacral region, Barby Garcia NP unstageable 07/26/2018 L89.150 Pressure ulcer of sacral region, Ashok Hood M.D. unstageable 07/17/2018 L89.304 Pressure ulcer of unspecified Esther Mendoza DNP, RN, buttock, stage 4 [employer] 07/17/2018 M46.28 Osteomyelitis of vertebra, sacral Esther Mendoza DNP, RN , and sacrococcygeal region [facility] 07/17/2018 E46 Unspecified protein-calorie Esther Mendoza DNP RN, malnutrition [employer] 07/03/2018 L89.304 Pressure ulcer of unspecified Esther Mendoza DNP, RN, buttock, stage 4 [employer] 07/03/2018 M46.28 Osteomyelitis of vertebra, sacral Esther Mendoza DNP, RN , and sacrococcygeal region [employer] 07/03/2018 E46 Unspecified protein-calorie Esther Mendoza DNP RN, malnutrition [facility] Plan of Treatment Future Appointment(s):01/30/2019 10:10 am - Ashok Hood M.D. at [facility] Functional Status Description No Information Available Mental Status Description No Information Available Referrals Description No Information Available
--- NOTE | 2019-01-15 21:13 | ED ---
Complex/Multi-Sys Presentation - HPI Summary HPI Summary: Patient is a 78 y/o F presenting to [facility] via EMS from [place] for concerns of high potassium and increased LE edema. Patient has complaints of pain to her backside as well, EMS reported that the patient has a pressure sore that is being treated at the wound clinic. Initial BP was 62/38. PMHx of thyroid disease , afib, asthma, COPD, PE. PSHx of aortic valve replacement, IVC filter, hernia repairs. Patient is a level 5 caveat due to dementia. Home medications and allergies are reviewed. - History Of Current Complaint Hx Obtained From: EMS Hx From Patient Unobtainable Due To: Dementia Onset/Duration: Still Present Location: Pain At: - backside Associated Signs And Symptoms: Positive: Edema, Other - positive - pressure sore at buttock, high potassium - Allergies/Home Medications Allergies/Adverse Reactions: Allergies Allergy/AdvReac Type Severity Reaction Status Date / Time caffeine Allergy Unknown Verified 01/15/19 21:16 Reaction Details cephalexin Allergy Unknown Verified 01/15/19 21:16 Reaction Details chlordiazepoxide Allergy Unknown Verified 01/15/19 21:16 Reaction Details ciprofloxacin [From Cipro] Allergy Unknown Verified 01/15/19 21:16 Reaction Details codeine Allergy Unknown Verified 01/15/19 21:16 Reaction Details Iodinated Contrast Media Allergy Difficulty Verified 01/17/19 08:37 Breathing lidocaine Allergy Unknown Verified 01/15/19 21:16 Reaction Details lithium Allergy Unknown Verified 01/15/19 21:16 Reaction Details metronidazole Allergy Unknown Verified 01/15/19 21:16 Reaction Details morphine Allergy Unknown Verified 01/15/19 21:16 Reaction Details Penicillins Allergy Unknown Verified 01/15/19 21:16 Reaction Details propafenone Allergy Unknown Verified 01/15/19 21:16 Reaction Details sulfamethoxazole Allergy Unknown Verified 01/15/19 21:16 [From Bactrim] Reaction Details trimethoprim [From Bactrim] Allergy Unknown Verified 01/15/19 21:16 Reaction Details vancomycin AdvReac See Comment Verified 01/15/19 21:16 Home Medications: Home Medications Acetaminophen [Acetaminophen Extra Strength] 500 mg PO Q8H PRN 01/15/19 [ History Confirmed 01/15/19] Aspirin 81 mg PO DAILY 01/15/19 [History Confirmed 01/15/19] Calcium Carbonate/Vitamin D3 [Calcium 600+D High Potenc] 1 tab PO DAILY [History Confirmed 01/15/19] Ferrous Sulfate TAB* 325 mg PO DAILY 01/15/19 [History Confirmed 01/15/19] Gabapentin CAP(*) [Neurontin 300 CAP(*)] 300 mg PO BEDTIME 01/15/19 [History Confirmed 01/15/19] Ipratropium/Albuterol Sulfate [Iprat-Albut 0.5-3(2.5) mg/3 ml] 1 inh INH BID [History Confirmed 01/15/19] L. Acidophilus/L.bulgaricus [Lactobacillus Tablet] 1 each PO DAILY 01/15/19 [ History Confirmed 01/15/19] Loperamide CAP* [Imodium CAP*] 2 mg PO Q4H PRN 01/15/19 [History Confirmed 01/15] Nystatin SUSPENSION* 5 ml PO BID 01/15/19 [History Confirmed 01/15/19] Oxycodone HCl 1 tab PO BID 01/15/19 [History Confirmed 01/15/19] Saline NASAL SPRAY 0.65%* [Sodium Chloride 0.65% Nasal [place]*] 2 spray BOTH NARES Q12HR 01/15/19 [History Confirmed 01/15/19] Warfarin TAB(*) [Coumadin TAB(*)] 1 mg PO EVERY OTHER DAY 01/15/19 [History Confirmed 01/15/19] guaiFENesin/CODIEN 100MG-10MG* [Robitussin AC 100Mg-10Mg*] 5 ml PO Q8H PRN 01/15 [History Confirmed 01/15/19] PMH/Surg Hx/FS Hx/Imm Hx Endocrine/Hematology History: Reports: Hx Thyroid Disease Cardiovascular History: Reports: Hx Atrial Fibrillation, Other Cardiovascular Problems/Disorders - A-fib Denies: Hx Pacemaker/ICD Respiratory History: Reports: Hx Asthma, Hx Chronic Obstructive Pulmonary Disease (COPD), Hx Pulmonary Embolism History: Reports: Hx Kidney Stones Musculoskeletal History: Reports: Hx Back Problems Sensory History: Denies: Hx Contacts or Glasses, Hx Hearing Aid Opthamlomology History: Denies: Hx Contacts or Glasses Psychiatric History: Reports: Hx Anxiety Denies: Hx Panic Disorder - Surgical History Surgery Procedure, Year, and Place: OPEN HEART- AORTIC VALVE REPLACEMENT, JAN 2018;. MULTIPLE HERNIA REPAIRS;. IVC FILTER- [facility] OR [place], 2001;. EXCESS SKIN REMOVED FROM ABDOMINAL AREA Infectious Disease History: Unable to Obtain/Confirm Infectious Disease History: Denies: Traveled Outside the [place] in Last 30 Days - Family History Known Family History: Negative: Blood Disorder - Social History Alcohol Use: None Hx Substance Use: No Substance Use Type: Reports: None Hx Tobacco Use: No Smoking Status (MU): Never Smoked Tobacco Review of Systems Constitutional: Other - positive - high potassium Positive: Edema Skin: Other - positive - pressure sore at buttock All Other Systems Reviewed And Are Negative: Yes Physical Exam - Summary Physical Exam Summary: Appearance: Chronically ill-appearing, morbidly obese, elderly female who appears uncomfortable Skin: Warm, dry, no obvious rash Eyes: sclera anicteric, no conjunctival pallor ENT: mucous membranes moist, pharynx appears normal Neck: Supple, nontender Respiratory: Clear to auscultation, no signs of respiratory distress Cardiovascular: Normal S1, S2. No murmurs. Normal distal pulses in tibial and radial bilaterally. Abdomen: Soft, nontender, normal active bowel sounds present Musculoskeletal: Normal, Strength/ROM Intact Neurological: Patient is alert but disoriented, level 5 caveat due to dementia. Psychiatric: affect is normal, does not appear anxious or depressed Triage Information Reviewed: Yes Vital Signs On Initial Exam: Initial Vitals Temp Pulse Resp BP Pulse Ox 97.6 F 96 21 62/38 99 01/15/19 20:41 01/15/19 20:41 01/15/19 20:41 01/15/19 20:41 01/15/19 20:41 Vital Signs Reviewed: Yes Completion Of Physical Exam Limited Due To: Dementia, Level 5 Procedures - Procedure Summary Procedure Summary: Left subclavian triple lumen central venous catheter was placed. Betadine prep, sterile drapes and dressing were applied. Lidocaine for anesthesia was used. Unable to cannulate the left jugular, had to switch to left clavicle. There was yeast dermatitis at the left periclavicular area. - Central Line Left Subclavian Triple Lumen Central Venous Catheter Central Line Lumen: triple Central Line Procedure: betadine prep, sterile drapes applied, sterile dressing applied Central Line Position: subclavian (L) Anesthesia: Lidocaine Central Line Post Position: sutured, good blood return, position confirmed w/ CXR - tip is in the left jugular vein, unable to cannulate the left internal juglar, had to switch to left clavicule. Left pericalciular area Yeast dermatitis Diagnostics - Vital Signs Vital Signs Temp Pulse Resp BP Pulse Ox 01/15/19 20:41 97.6 F 96 21 62/38 99 - Laboratory Result Diagrams: 01/18/19 05:25 01/18/19 05:25 Lab Statement: Any lab studies that have been ordered have been reviewed, and results considered in the medical decision making process. - Radiology CXR Radiology Interpretation Completed By: ED Physician Summary of Radiographic Findings: No acute process, pending official report. CXR post central line Radiology Interpretation Completed By: ED Physician Summary of Radiographic Findings: CXR showed tip of catheter in internal jugular vein, pending official report. - EKG 2101 Cardiac Rate: NL - rate of 95 BPM EKG Rhythm: Sinus Rhythm Summary of EKG Findings: NSR at 95 BPM, P waves, QRS complex, and T waves are within normal limits, T waves and intervals are normal, no ischemic changes. This is a normal EKG. Complex Multi-Symp Course/Dx Course Of Treatment: Patient is a 78 y/o F presenting to [facility] via EMS from [place] for concerns of high potassium and increased LE edema. Patient has complaints of pain to her backside as well, EMS reported that the patient has a pressure sore that is being treated at the wound clinic. Initial BP was 62/38. PMHx of thyroid disease, afib, asthma, COPD, PE. PSHx of aortic valve replacement, IVC filter, hernia repairs. Nurse's notes reviewed. On physical exam, patient is noted to be a chronically ill-appearing, morbidly obese, elderly female who appears uncomfortable. Patient had an initial low BP reading. However, subsequent BP recheck readings were improved and patient is noted to have a Hx of running low BPs. Bloodwork and VBG were obtained. EKG showed NSR at 95 BPM, P waves, QRS complex, and T waves are within normal limits , T waves and intervals are normal, no ischemic changes. This is a normal EKG. CXR showed NAD. During ED course, patient received fluids. Left subclavian triple lumen central venous catheter was placed. Betadine prep, sterile drapes and dressing were applied. Lidocaine for anesthesia was used. Unable to cannulate the left jugular, had to switch to left clavicle. There was yeast dermatitis at the left periclavicular area. Patient's case was discussed with Dr. Yeager, Dr. Yeager acceptkaty for admission. - Diagnoses Provider Diagnoses: Severe anemia, Decubitus skin ulcer - Physician Notifications Discussed Care Of Patient With: Bartolo Yeager Time Discussed With Above Provider: 01:59 Instructed by Provider To: Other - Patient's case was discussed with Dr. Yeager, Dr. Yeager acceptkaty for admission. Admission order placed at 0159. - Critical Care Time Critical Care Time: 30-74 min Discharge ED - Sign-Out/Discharge Documenting (check all that apply): Patient Departure - admit All imaging exams completed and their final reports reviewed: Yes Patient Received Moderate/Deep Sedation with Procedure: No - Discharge Plan Condition: Critical Disposition: ADMITTED TO [facility] - Billing Disposition and Condition Condition: CRITICAL Disposition: Admitted to [facility] - Attestation Statements Document Initiated by Filiberto: Yes Documenting Scribe: TOR BELCHER Provider For Whom Filiberto is Documenting (Include Credential): PANTERA RUTH MD Scribe Attestation: TOR Scott, scribed for PANTERA RUTH MD on 01/20/19 at 0628. Scribe Documentation Reviewed: Yes Provider Attestation: The documentation as recorded by the TOR [email or web address] accurately reflects the service I personally performed and the decisions made by me, PANTERA RUTH MD Status of Scribe Document: Viewed
[2019-01-15] MEDS: NS 0.9% 1000 ML** 1,000 ML IV.FLUID IV ONE (21:14)
[2019-01-15 22:38] LABS: ABS Lymphocytes 1.1 10^3/ul (1.0-4.8); ABS Monocytes 0.2 10^3/ul (0-0.8); ABS Neutrophils 11.7 10^3/ul (1.5-7.7); Eosinophil % 0.1 %; Hematocrit 22 % (35-47); Hemoglobin 6.7 g/dL (12.0-16.0); Lymphocyte % 8.7 %; Mean Corpuscular HGB Conc 31 g/dL (31-36); Mean Corpuscular Hemoglobin 27 pg (27-31); Mean Corpuscular Volume 86 fL (80-97); Mean Platelet Volume 10.6 fL (7.4-10.4); Platelet Count 103 10^3/uL (150-450); Red Blood Count 2.51 10^6 /uL (3.70-4.87); Red Cell Distribution Width 17 % (10-15); White Blood Count 13.1 10^3/uL (3.5-10.8)
[2019-01-15 22:50] LABS: ALT 8 U/L (7-52); Albumin 2.7 g/dL (3.2-5.2); Alkaline Phosphatase 105 U/L (34-104); BUN/Creatinine Ratio 47.1 (8-20); Blood Urea Nitrogen 80 mg/dL (6-24); CO2 Carbon Dioxide 16 mmol/L (22-32); Calcium 7.8 mg/dL (8.6-10.3); EGFR African American 35.2 (>60); EGFR Non-African American 29.1 (>60); Globulin 2.6 g/dL (2-4); Glucose 99 mg/dL (70-100); Sodium 139 mmol/L (135-145); Total Protein 5.3 g/dL (6.4-8.9)
[2019-01-15 22:51] LABS: Troponin I 0.03 ng/mL (<0.04)
[2019-01-15 22:55] LABS: Chloride 115 mmol/L (101-111)
[2019-01-15 23:00] LABS: Anion Gap 8 mmol/L (2-11)
[2019-01-15] MEDS ORDERED: Lidocaine 1% INJ* 10 MG/ML 30 ML SDV INJ ONE (23:20)
[2019-01-15] MEDS ORDERED: Lidocaine 1% INJ* 10 MG/ML 30 ML SDV ONE (23:29)
[2019-01-16] MEDS: NS 0.9% 1000 ML** 1,000 ML IV.FLUID IV ONE (00:10)
[2019-01-16 00:38] LABS: Activated Partial Thrombo Time 34.2 seconds (26.0-38.0); INR 2.63 (0.82-1.09)
[2019-01-16 00:53] LABS: Potassium Redraw 5.4 mmol/L (3.5-5.0)
[2019-01-16] MEDS ORDERED: Sodium Bicarbonate 8.4%* 50 ML SYRINGE IV ONE (02:54)
[2019-01-16 02:55] LABS: BUN/Creatinine Ratio 49.3 (8-20); EGFR Non-African American 33.1 (>60)
[2019-01-16 03:02] LABS: Potassium 5.4 mmol/L (3.5-5.0)
[2019-01-16] MEDS ORDERED: Albuterol/Ipratropium NEB.SOL* Albuterol 2.5 MG/Ipratropium 0.5 MG 3 ML INH PRN (03:22)
[2019-01-16 04:04] LABS: Urine Appearance Turbid; Urine Bacteria 3+ (Absent); Urine Bilirubin Negative (Negative); Urine Blood 3+ (Negative); Urine Color Yellow; Urine Glucose Negative (Negative); Urine Ketones Negative (Negative); Urine Nitrite Negative (Negative); Urine Protein 2+(100 mg/dL) (Negative); Urine Red Blood Cell 3+(>10/hpf) (Absent); Urine Specific Gravity 1.013 (1.010-1.030); Urine Urobilinogen Negative (Negative); Urine White Blood Cell 3+(>20/hpf) (Absent)
[2019-01-16] MEDS: HYDROmorphone INJ* 0.5 MG/0.5 ML SYRINGE IV SLOW PU PRN ×4 (04:21→20:48)
--- NOTE | 2019-01-16 06:13 | HP ---
CC: Dr. Bar Rdz; Dr. Ashok Fraser; Dr. Dorian Ojeda ADMISSION HISTORY AND PHYSICAL: DATE OF ADMISSION: 01/16/19 PRIMARY CARE PHYSICIAN: Dr. Bar Rdz. INFECTIOUS DISEASE SPECIALIST: Dr. Fraser. CHIEF COMPLAINT: Abnormal labs with high potassium and weakness. HISTORY OF PRESENT ILLNESS: This is a 78-year-old female with past medical history of AFib; PE, on Coumadin; history of asthma and COPD; history of C. diff ; history of hypothyroidism; and chronic sacral abscess with tunneling, recently diagnosed osteomyelitis from the sacral abscess, was admitted from 11/17 through to 12/11/18 and [facility] finish her 20 days of antibiotics, which she finished 2 days ago. She was brought in as daughter noticed that the patient was getting severely weak and blood test was suggesting of elevated potassium. The history was obtained from the daughter as the patient was a little confused even though she was oriented per nurse upon arrival. She became mildly hypotensive and per daughter was more tired and did not answer as many questions during my evaluation. Per daughter, the patient has been having worsening diarrhea and worsening sacral ulcer. The diarrhea caused the patient to have further worsening of her skin breakdown due to constant moisture in that area. The daughter also noticed that she has been getting more and more weaker and has had decreased appetite and decreased swallow in the last few days and worsening groin erythema as well and she was scheduled to be discharged home with home care the day after; however, given that the patient was getting weaker, they finally decided to come to the ER for further evaluation. The patient does not have any documented fever or any blood loss other than there was some skin breakdown and intermittent bleeding. Daughter also stated that the patient had poor care at the residential and there was some bruising due to her Coumadin levels being not proper. PAST MEDICAL HISTORY: As mentioned; 1. AFib. 2. History of PE, status post IVC filter. 3. History of asthma/COPD with CO2 retention. 4. History of hypothyroidism. 5. History of sacral abscess, ongoing for over a year with complication due to C. diff and antibiotic diarrhea and recent diagnosis of osteomyelitis. PAST SURGICAL HISTORY: Include two aortic valve surgeries and an IVC filter and multiple abdominal surgeries including hernia repair surgery. HOME MEDICATIONS: Include: 1. Levothyroxine 125 mcg p.o. daily. 2. ProMod liquid supplementation p.o. t.i.d. 3. Xanax 1 mg p.o. four times a day. 4. Saline nasal spray both nares q.24 hours. 5. Zinc sulfate 220 mg p.o. daily. 6. Symbicort 2 puffs by inhalation p.o. b.i.d. 7. Oxycodone 5 mg tablet p.o. b.i.d. 8. Omeprazole 20 mg oral daily. 9. Nystatin suspension 5 mL p.o. b.i.d. 10. Nystatin topical powder application. 11. Multivitamins 1 tablet oral daily. 12. Metoprolol 1 tablet p.o. b.i.d. 13. Magnesium oxide p.o. daily. 14. Linezolid 600 mg p.o. b.i.d. 15. Lactobacillus tablet oral daily. 16. Imodium 2 capsules p.o. q.4 hours p.r.n. 17. DuoNeb by inhalation b.i.d. 18. Guaifenesin with codeine 5 mL p.o. q.8 hours p.r.n. 19. Neurontin 300 mg p.o. daily at bedtime. 20. Ferrous sulfate 325 mg oral daily. 21. Coumadin 1 mg tablet oral every other day. 22. Calcium carbonate with vitamin D3 one tablet oral daily. 23. Aspirin 81 mg oral daily. 24. Acetaminophen 500 mg every 8 hours p.r.n. moderate pain or fever. ALLERGIES: The patient has multiple documented allergies including CAFFEINE, CEPHALEXIN, CHLORDIAZEPOXIDE, CIPRO, CODEINE, LIDOCAINE, LITHIUM, METRONIDAZOLE , MORPHINE, PENICILLIN, PROPAFENONE, BACTRIM, VANCOMYCIN, and IV CONTRAST DYE. FAMILY HISTORY: Noncontributory at her age. SOCIAL HISTORY: No smoking, alcohol, or drug use. Lives at the rehab facility and the daughter states that the patient is full code and she is the healthcare proxy. REVIEW OF SYSTEMS: Unable to obtain as the patient was mildly confused. PHYSICAL EXAMINATION GENERAL: The patient is arousable and oriented to person; however, sometimes she was very drowsy and went back sleep. VITAL SIGNS: Initial BP was noted to be 62/38, which improved to 85/58 after IV hydration. The patient was noted to be tachycardic intermittently with heart rate running anywhere from 93 to 100 since arrival to the ER. Temperature was documented at 97.6 max on arrival, respirations 28, saturating 100% on room air. HEAD AND NECK: Atraumatic, normocephalic. Bilateral pupils are reactive. Oral mucosa was dry. Neck: Supple. No jugular venous distention. LUNGS: Clear to auscultation bilaterally. No wheezing, rhonchi, or rales. HEART: S1, S2 regular. Tachycardia. ABDOMEN: Obese with large incisional hernia on the right lateral aspect of the abdomen and there is a pressure ulcer underneath the right breast, which is at stage 2. During sacral exam, the patient was noted to have a large amount of liquid green stool. EXTREMITIES: There is no cyanosis or clubbing. There is some scarring from previous ulcers. SKIN: There is stage 4 tunneling ulcer on the sacral area. There is also an ulcer in the right lateral aspect of her buttocks and lumbosacral area, which was likely stage 2 with some skin tear and bleeding. DIAGNOSTIC STUDIES/LAB DATA: CBC shows minimally elevated white count of 13.1 , hemoglobin and hematocrit shows anemia with hemoglobin of 6.7, hematocrit of 22, platelet count of 103. Coagulation profile shows INR of therapeutic at 2.63. ABG shows pH of 7.17. Comprehensive metabolic panel shows elevated BUN at 80, creatinine elevated at 1.7. Lactic acid elevated at 3.0. Potassium elevated at 5.4. Albumin decreased at 2.7. Urinalysis is still pending. Stool occult and stool C. diff and stool cultures are still pending. Portable chest x-ray just shows previous sternotomy sutures but no other changes. Initial chest x-ray showed clear lung duron with sternotomy sutures from previous sternotomy. There is no obvious infiltrates. A repeat chest x-ray suggests the subclavian line placed on the left side, which had upturning angle going towards the left internal jugular. Blood gas analysis of that blood shows pH of 7.17 and oxygen saturation of 74.2 suggesting the line is still in the venous system rather than any arterial system. IMPRESSION: This is a 78-year-old female with multiple medical problems including atrial fibrillation; pulmonary embolism, on Coumadin; and a large sacral decubitus with recent osteomyelitis treated with antibiotics, comes in again this time with elevated potassium and severe anemia with acute drop in hemoglobin with hypotension, and acute kidney injury and likely all multifactorial. ASSESSMENT AND PLAN: 1. Hypotension with acute blood loss anemia, likely some sort of a gastrointestinal bleeding with conjunction of severe dehydration as the patient has had decreased p.o. intake for the last few days according to the daughter. For now, we will hydrate the patient and the patient already scheduled to get blood. I did leave a message with GI physician to see if the patient has any gastrointestinal bleed. Stool testing for Clostridium difficile, occult blood, and culture are still pending. We will keep the patient n.p.o. with the possibility of any esophagogastroduodenoscopy in the future. We will also start the patient on IV Protonix b.i.d. and as mentioned I have left a voice mail with Dr. Dorian Ojeda, who will evaluate the patient in the morning. 2. Acidosis, likely a combination of lactic acidosis and metabolic acidosis from loss of bicarb from her chronic diarrhea and may be component of non-gap acidosis from her acute kidney image. For now, we will monitor the pH and the bicarb supplementation via IV. Lactic acidosis already resolved. 3. Leukocytosis, likely reactive. 4. Thrombocytopenia, likely reactive. 5. History of atrial fibrillation and pulmonary embolism, on Coumadin. We will hold any anticoagulation in light of the patient's bleeding. 6. History of asthma/chronic obstructive pulmonary disease. Restart her nebulizations. 7. History of hypothyroidism. Restart her levothyroxine but we will give IV levothyroxine. 8. Chronic diarrhea. Follow up stool studies. 9. Code status. Daughter still claims that the patient is full code. 10. DVT prophylaxis. As mentioned, the patient is not on any anticoagulation due to her acute blood loss anemia and no sequential compression device in light of the patient's lower extremity edema and bruises. Overall prognosis is guarded. I did speak to the patient's daughter a few more times regarding her goals of care and code status; however, daughter still wants the patient to be full code. [id number]/[facility] #: [id number] MTDD
[2019-01-16] MEDS: Levothyroxine INJ* 100 MCG/5 ML VIAL IV SCH (06:23)
[2019-01-16] MEDS: Aztreonam (*) 1 GM in NS 0.9% 50 ML* 50 ML IVPB SCH ×3 (06:25→21:22)
[2019-01-16 06:27] LABS: ABS Monocytes 0.3 10^3/ul (0-0.8); ABS Neutrophils 10.9 10^3/ul (1.5-7.7); Eosinophil % 0.2 %; Hematocrit 27 % (35-47); Hemoglobin 8.9 g/dL (12.0-16.0); Lymphocyte % 8.2 %; Mean Corpuscular HGB Conc 33 g/dL (31-36); Mean Corpuscular Hemoglobin 28 pg (27-31); Mean Corpuscular Volume 87 fL (80-97); Red Blood Count 3.16 10^6 /uL (3.70-4.87); Red Cell Distribution Width 17 % (10-15); White Blood Count 12.3 10^3/uL (3.5-10.8)
[2019-01-16 06:33] LABS: INR 2.4 (0.82-1.09)
[2019-01-16 06:35] LABS: Mean Platelet Volume 9.4 fL (7.4-10.4); Platelet Count 63 10^3/uL (150-450)
[2019-01-16 06:38] LABS: BUN/Creatinine Ratio 49.6 (8-20); Calcium 7.3 mg/dL (8.6-10.3); EGFR African American 44.4 (>60); EGFR Non-African American 36.7 (>60)
[2019-01-16 06:42] LABS: Potassium 5.2 mmol/L (3.5-5.0)
[2019-01-16] MEDS ORDERED: NS 0.9% 1000 ML/HR X 1 BAG (TOTAL 1000 ML) IV ONE (09:00)
[2019-01-16] MEDS: Pantoprazole IV* 40 MG IV SCH ×2 (09:12→21:21)
[2019-01-16] MEDS ORDERED: Norepinephrine 16MCG/ML IVPRE* 4,000 MCG/250 ML BAG IV ONE (09:33)
--- NOTE | 2019-01-16 10:42 | OP ---
Operative Report - Blank - Operative Report Date of Operation: 01/16/19 Note: Triple lumen placement A time-out was completed verifying correct patient, procedure, and site positioning. The patients right neck was prepped and draped in sterile fashion. Lidocaine was used to anesthetize the surrounding skin area. Under ultrasound guidance, a triple lumen catheter was introduced into the internal jugular vein using the Seldinger technique. The catheter was threaded smoothly over the guide wire and appropriate blood return was obtained. Each lumen of the catheter was evacuated of air and flushed with sterile saline. The catheter was then sutured in place to the skin and a sterile dressing applied. Estimated Blood Loss was minimal. CXR ordered for correct placement. The patient tolerated the procedure well and there were no complications.
[2019-01-16] MEDS ORDERED: Norepinephrine 16MCG/ML IVPRE* 4,000 MCG/250 ML BAG IV SCH ×2 (11:00→12:00)
--- NOTE | 2019-01-16 11:09 | PN ---
Date of Service: 01/16/19 Critical Care Services: patient remains hypotensive continue to have diarrhea. c.difficile s/p 2 units PRBCs. Hg 8.9 now. stool occult negative Platelets decreasing and renal functions improving lactates resolving no active bleeding L TLC removed because incorrect position Vital Signs: Temp Pulse Resp BP SpO2 FiO2 98.2 F 96 34 81/44 95 01/16/19 07:45 01/16/19 07:45 01/16/19 09:11 01/16/19 07:45 01/16/19 07:45 Physical Exam: Gen: not responding to questions. just moaning HEENT: MM dry Lungs: decreased BS's Cardiac: RRR Abdomen: + BS, Soft, NTP. No rebound and guarding Extremities: no FANNY Skin: Sacral decubs stage IV Fluid Balance (Past 24 Hours): I= O= Net Intake & Output 01/14/19 01/15/19 01/16/19 01/17/19 06:59 06:59 06:59 06:59 Intake Total 3658 Output Total 275 155 Balance 3383 -155 Weight 189 lb 9.561 oz Intake: IV Fluids 3077 NS (0.9%) 77 Packed Cells 581 Output: Mejias 275 155 ADLs: Meal Record Start: 01/16/19 02: 25 Freq: ,,18 Status: Active Protocol: Created 01/16/19 02:25 System (Rec: 01/16/19 02:25 System [id number]) Intake and Output Start: 01/15/19 20: 51 Freq: Status: Active Protocol: Created 01/15/19 20:51 System (Rec: 01/15/19 20:51 System [id number]) Intake and Output Start: 01/16/19 02: 25 Freq: Q1HR Status: Active Protocol: Created 01/16/19 02:25 System (Rec: 01/16/19 02:25 System [id number]) Document 01/16/19 04:00 [id number] (Rec: 01/16/19 05:04 [id number]) Document 01/16/19 05:00 [id number] (Rec: 01/16/19 05:57 [id number] ICU-C25) Document 01/16/19 06:00 [id number] (Rec: 09/17/19 06:27 [id number] ICU-C25) Document 01/16/19 07:15 [id number] (Rec: 01/16/19 07:15 [id number] ICU-M30) Document 01/16/19 08:56 [id number] (Rec: 01/16/19 08:56 [id number] ICU-M30) Document 01/16/19 08:59 [id number] (Rec: 01/16/19 08:59 [id number] ICU-C12) Labs: Laboratory Results - last 24 hr 01/15/19 01/15/19 01/15/19 21:10 22:07 22:07 WBC 13.1 H RBC 2.51 L Hgb 6.7 L Hct 22 L MCV 86 MCH 27 MCHC 31 RDW 17 H Plt Count 103 L MPV 10.6 H Neut % (Auto) 89.4 Lymph % (Auto) 8.7 Phillips % (Auto) 1.5 Eos % (Auto) 0.1 Baso % (Auto) 0.3 Absolute Neuts (auto) 11.7 H Absolute Lymphs (auto) 1.1 Absolute Monos (auto) 0.2 Absolute Eos (auto) 0.0 Absolute Basos (auto) 0.0 Absolute Nucleated RBC 0.0 Nucleated RBC % 0.0 INR (Anticoag Therapy) APTT VBG pH VBG pCO2 VBG pO2 VBG HCO3 VBG O2 Saturation VBG Base Excess Sodium 139 Potassium TNP Chloride 115 H Carbon Dioxide 16 L Anion Gap 8 BUN 80 H Creatinine 1.70 H Est GFR ( Amer) 35.2 Est GFR (Non-Af Amer) 29.1 BUN/Creatinine Ratio 47.1 H Glucose 99 Lactic Acid Calcium 7.8 L Total Bilirubin 0.40 AST TNP ALT 8 Alkaline Phosphatase 105 H Troponin I 0.03 Total Protein 5.3 L Albumin 2.7 L Globulin 2.6 Albumin/Globulin Ratio 1.0 Urine Color Cancelled Urine Appearance Cancelled Urine pH Cancelled Ur Specific [place] Cancelled Urine Protein Cancelled Urine Ketones Cancelled Urine Blood Cancelled Urine Nitrate Cancelled Urine Bilirubin Cancelled Urine Urobilinogen Cancelled Ur Leukocyte Esterase Cancelled Urine WBC (Auto) Cancelled Urine RBC (Auto) Cancelled Ur Squamous Epith Cells Cancelled Ur Transition Epith Cell Cancelled Ur Renal Epithelial Cell Cancelled Calcium Carbonate Cryst Cancelled Calcium Phosphate Cryst Cancelled Calcium Oxalate Crystal Cancelled Leucine Crystals Cancelled Cystine Crystals Cancelled Uric Acid Crystals Cancelled Triple Phos Crystals Cancelled Tyrosine Crystals Cancelled Amorphous Crystals Cancelled Urine Bacteria Cancelled Cellular Casts Cancelled Epithelial Casts Cancelled Fatty Casts Cancelled Hyaline Casts Cancelled Granular Casts Cancelled Waxy Casts Cancelled Broad Casts Cancelled RBC Casts Cancelled WBC Casts Cancelled Urine Trichomonas Cancelled Urine Yeast Cancelled Urine Sperm Cancelled Ur Oval Fat Bodies Cancelled Urinalysis Comment Cancelled Urine Glucose Cancelled Urine Ascorbic Acid Cancelled Blood Type Antibody Screen Crossmatch 01/15/19 01/16/19 01/16/19 22:07 00:00 00:00 WBC RBC Hgb Hct MCV MCH MCHC RDW Plt Count MPV Neut % (Auto) Lymph % (Auto) Phillips % (Auto) Eos % (Auto) Baso % (Auto) Absolute Neuts (auto) Absolute Lymphs (auto) Absolute Monos (auto) Absolute Eos (auto) Absolute Basos (auto) Absolute Nucleated RBC Nucleated RBC % INR (Anticoag Therapy) 2.63 H APTT 34.2 VBG pH VBG pCO2 VBG pO2 VBG HCO3 VBG O2 Saturation VBG Base Excess Sodium Potassium 5.4 H Chloride Carbon Dioxide Anion Gap BUN Creatinine Est GFR ( Amer) Est GFR (Non-Af Amer) BUN/Creatinine Ratio Glucose Lactic Acid 3.0 H* Calcium Total Bilirubin AST 11 L ALT Alkaline Phosphatase Troponin I Total Protein Albumin Globulin Albumin/Globulin Ratio Urine Color Urine Appearance Urine pH Ur Specific [place] Urine Protein Urine Ketones Urine Blood Urine Nitrate Urine Bilirubin Urine Urobilinogen Ur Leukocyte Esterase Urine WBC (Auto) Urine RBC (Auto) Ur Squamous Epith Cells Ur Transition Epith Cell Ur Renal Epithelial Cell Calcium Carbonate Cryst Calcium Phosphate Cryst Calcium Oxalate Crystal Leucine Crystals Cystine Crystals Uric Acid Crystals Triple Phos Crystals Tyrosine Crystals Amorphous Crystals Urine Bacteria Cellular Casts Epithelial Casts Fatty Casts Hyaline Casts Granular Casts Waxy Casts Broad Casts RBC Casts WBC Casts Urine Trichomonas Urine Yeast Urine Sperm Ur Oval Fat Bodies Urinalysis Comment Urine Glucose Urine Ascorbic Acid Blood Type Antibody Screen Crossmatch 01/16/19 01/16/19 01/16/19 00:00 00:35 00:35 WBC RBC Hgb Hct MCV MCH MCHC RDW Plt Count MPV Neut % (Auto) Lymph % (Auto) Phillips % (Auto) Eos % (Auto) Baso % (Auto) Absolute Neuts (auto) Absolute Lymphs (auto) Absolute Monos (auto) Absolute Eos (auto) Absolute Basos (auto) Absolute Nucleated RBC Nucleated RBC % INR (Anticoag Therapy) APTT VBG pH 7.17 L VBG pCO2 48 VBG pO2 46.0 H VBG HCO3 15.7 L VBG O2 Saturation 74.2 VBG Base Excess -11.0 L Sodium Potassium Chloride Carbon Dioxide Anion Gap BUN Creatinine Est GFR ( Amer) Est GFR (Non-Af Amer) BUN/Creatinine Ratio Glucose Lactic Acid 1.7 Calcium Total Bilirubin AST ALT Alkaline Phosphatase Troponin I Total Protein Albumin Globulin Albumin/Globulin Ratio Urine Color Urine Appearance Urine pH Ur Specific [place] Urine Protein Urine Ketones Urine Blood Urine Nitrate Urine Bilirubin Urine Urobilinogen Ur Leukocyte Esterase Urine WBC (Auto) Urine RBC (Auto) Ur Squamous Epith Cells Ur Transition Epith Cell Ur Renal Epithelial Cell Calcium Carbonate Cryst Calcium Phosphate Cryst Calcium Oxalate Crystal Leucine Crystals Cystine Crystals Uric Acid Crystals Triple Phos Crystals Tyrosine Crystals Amorphous Crystals Urine Bacteria Cellular Casts Epithelial Casts Fatty Casts Hyaline Casts Granular Casts Waxy Casts Broad Casts RBC Casts WBC Casts Urine Trichomonas Urine Yeast Urine Sperm Ur Oval Fat Bodies Urinalysis Comment Urine Glucose Urine Ascorbic Acid Blood Type O Positive Antibody Screen Negative Crossmatch See Detail 01/16/19 01/16/19 01/16/19 02:24 03:38 06:05 WBC RBC Hgb Hct MCV MCH MCHC RDW Plt Count MPV Neut % (Auto) Lymph % (Auto) Phillips % (Auto) Eos % (Auto) Baso % (Auto) Absolute Neuts (auto) Absolute Lymphs (auto) Absolute Monos (auto) Absolute Eos (auto) Absolute Basos (auto) Absolute Nucleated RBC Nucleated RBC % INR (Anticoag Therapy) 2.40 H APTT VBG pH VBG pCO2 VBG pO2 VBG HCO3 VBG O2 Saturation VBG Base Excess Sodium 142 Potassium 5.4 H Chloride 120 H Carbon Dioxide 19 L Anion Gap 3 BUN 75 H Creatinine 1.52 H Est GFR ( Amer) 40.0 Est GFR (Non-Af Amer) 33.1 BUN/Creatinine Ratio 49.3 H Glucose 106 H Lactic Acid Calcium 7.0 L Total Bilirubin AST ALT Alkaline Phosphatase Troponin I Total Protein Albumin Globulin Albumin/Globulin Ratio Urine Color Yellow Urine Appearance Turbid Urine pH 5.0 Ur Specific [place] 1.013 Urine Protein 2+(100 mg/dl) A Urine Ketones Negative Urine Blood 3+ A Urine Nitrate Negative Urine Bilirubin Negative Urine Urobilinogen Negative Ur Leukocyte Esterase 3+ A Urine WBC (Auto) 3+(>20/hpf) A Urine RBC (Auto) 3+(>10/hpf) A Ur Squamous Epith Cells Ur Transition Epith Cell Ur Renal Epithelial Cell Calcium Carbonate Cryst Calcium Phosphate Cryst Calcium Oxalate Crystal Leucine Crystals Cystine Crystals Uric Acid Crystals Triple Phos Crystals Tyrosine Crystals Amorphous Crystals Urine Bacteria 3+ A Cellular Casts Epithelial Casts Fatty Casts Hyaline Casts Granular Casts Waxy Casts Broad Casts RBC Casts WBC Casts Urine Trichomonas Urine Yeast Urine Sperm Ur Oval Fat Bodies Urinalysis Comment Urine Glucose Negative Urine Ascorbic Acid Blood Type Antibody Screen Crossmatch 01/16/19 01/16/19 06:05 06:05 WBC 12.3 H RBC 3.16 L Hgb 8.9 L Hct 27 L MCV 87 MCH 28 MCHC 33 RDW 17 H Plt Count 63 L MPV 9.4 Neut % (Auto) 88.7 Lymph % (Auto) 8.2 Phillips % (Auto) 2.6 Eos % (Auto) 0.2 Baso % (Auto) 0.3 Absolute Neuts (auto) 10.9 H Absolute Lymphs (auto) 1.0 Absolute Monos (auto) 0.3 Absolute Eos (auto) 0.0 Absolute Basos (auto) 0.0 Absolute Nucleated RBC 0.0 Nucleated RBC % 0.0 INR (Anticoag Therapy) APTT VBG pH VBG pCO2 VBG pO2 VBG HCO3 VBG O2 Saturation VBG Base Excess Sodium 145 Potassium 5.2 H Chloride 117 H Carbon Dioxide 19 L Anion Gap 9 BUN 69 H Creatinine 1.39 H Est GFR ( Amer) 44.4 Est GFR (Non-Af Amer) 36.7 BUN/Creatinine Ratio 49.6 H Glucose 92 Lactic Acid Calcium 7.3 L Total Bilirubin AST ALT Alkaline Phosphatase Troponin I Total Protein Albumin Globulin Albumin/Globulin Ratio Urine Color Urine Appearance Urine pH Ur Specific [place] Urine Protein Urine Ketones Urine Blood Urine Nitrate Urine Bilirubin Urine Urobilinogen Ur Leukocyte Esterase Urine WBC (Auto) Urine RBC (Auto) Ur Squamous Epith Cells Ur Transition Epith Cell Ur Renal Epithelial Cell Calcium Carbonate Cryst Calcium Phosphate Cryst Calcium Oxalate Crystal Leucine Crystals Cystine Crystals Uric Acid Crystals Triple Phos Crystals Tyrosine Crystals Amorphous Crystals Urine Bacteria Cellular Casts Epithelial Casts Fatty Casts Hyaline Casts Granular Casts Waxy Casts Broad Casts RBC Casts WBC Casts Urine Trichomonas Urine Yeast Urine Sperm Ur Oval Fat Bodies Urinalysis Comment Urine Glucose Urine Ascorbic Acid Blood Type Antibody Screen Crossmatch Impression: Septic shock Dehydration HOLGER Dementia Hx CAD s/p CABG S/P TAVR Stage IV Decubs COPD on home 02 /CPAP Dementia Anemia without active bleeding Hx of C.Difficile and s/p recent ABX course Hx Thrush Hx swallowing Plan: Continue gentle IVF's for HOLGER and dehydration ABX per ID service check iron studies does not need further blood speech and swallow evaluation further stool studies pending continue home 02 and CPAP for underlying COPD wound care consult Had long d/w daughter at the bedside regarding GOC and code status. Daughter appeared knowledgeable on topic and recently signed MOLST in october 2018 stating she wants all measures taken. Daughter is her primary care-logging truck driver. Daughter still wants everything done on her mother and would not entertain any further changes to MOLST. Critical Care Time: 69 minutes without procedures
[2019-01-16] MEDS ORDERED: Lorazepam PYXIS KEY PRN (11:28)
[2019-01-16] MEDS: LORazepam INJ* 2 MG/ML 1 ML VIAL IV PUSH PRN (11:52)
[2019-01-16] MEDS: Nystatin SUSPENSION* 100000 UNITS/ML 5 ML UDC SCH ×3 (13:40→21:20)
[2019-01-16] MEDS: Linezolid 600 MG IVPREMIX(*) 600 MG/300 ML BAG IVPB SCH (15:03)
--- NOTE | 2019-01-16 16:00 | CONSULT ---
Subjective Date of Service: 01/16/19 Interval History: Ms. Mahoney is a 78-year-old female with past clinical history significant for atrial fibrillation; history of pulmonary embolus, on Coumadin; asthma; COPD; history of C. diff colitis; hypothyroidism; osteomyelitis at the sacrum; chronic stage 4 sacral decubitus. She presented to the emergency room for evaluation of abnormal labs, and was admitted for septic shock. She presented to the hospital with known skin breakdown to the left leg and sacrum that she was following with the wound clinic for, and multiple other wounds. Patient seen and examined at bedside. Family History: Unchanged from Admission Social History: Unchanged from Admission Past Medical History: Unchanged from Admission Review of Systems - Measurements Intake and Output: Intake and Output Last 24 Hours 01/14/19 01/15/19 01/16/19 01/17/19 06:59 06:59 06:59 06:59 Intake Total 3658 1330 Output Total 275 197 Balance 3383 1133 Weight 189 lb 9.561 oz Intake: IV Fluids 3077 1075 Aztreonem 1075 NS (0.9%) 77 IVPB 122 Aztreonem 122 Medicated IV 133 CC - Norepinephrine/ 133 Levophed Packed Cells 581 Output: Mejias 275 197 - Review of Systems General Comments: Unable to obtain ROS, as patient is unable to answer questions. Objective Active Medications: Albuterol/Ipratropium (Duoneb (Albuterol 2.5 Mg/Ipratropium 0.5 Mg)) 1 neb INH Q4H PRN Reason: SOB/WHEEZING Hydromorphone HCl (Dilaudid Inj*) 0.5 mg IV SLOW PU Q4H PRN Reason: PAIN - SEVERE Aztreonam 1 gm/ Sodium (Chloride) 50 mls @ 200 mls/hr IVPB Q8HR FRANCINE Norepinephrine Bitartrate (Levophed 16 Mcg/Ml Premix*) 4,000 mcg in 250 mls @ 0 mls/hr IV .INITIAL RATE FRANCINE; Protocol Linezolid (Zyvox 600 Mg Ivpremix(*)) 600 mg in 300 mls @ 300 mls/hr IVPB Q12H FRANCINE Sodium Chloride (Ns 0.9% 1000 Ml) 1,000 mls @ 75 mls/hr IV PER RATE FRANCINE Levothyroxine Sodium (Synthroid Inj*) 62.5 mcg IV 0600 [facility] Lorazepam (Ativan Inj*) 0.25 mg IV PUSH Q6H PRNReason: ANXIETY Nystatin (Nystatin Suspension*) 200,000 units .SEE ORDER QID [facility] Pantoprazole Sodium (Protonix Iv*) 40 mg IV Q12HR [facility] Vital Signs 01/16/19 01/16/19 01/16/19 10:15 10:30 10:45 Temperature 98.2 F 98.2 F 98.2 F Pulse Rate 110 112 106 Respiratory 23 29 23 Rate Blood Pressure 89/59 95/50 94/60 (mmHg) O2 Sat by Pulse 100 97 99 Oximetry Oxygen Devices in Use Now: Nasal Cannula Appearance: Ill appearing, laying in bed Ears/Nose/Mouth/Throat: - - Dry mucous membranes Respiratory: Symmetrical Chest Expansion and Respiratory Effort Skin: - - See skin note below Neurological: - - Alert, unable to determine orientation Lines/Tubes/Other Access: Clean, Dry and Intact Central Line - Right neck Result Diagrams: 01/18/19 05:25 01/18/19 05:25 Additional Lab and Data: Above labs were pulled into the note when edited prior to signing, please see labs below from day of consultation. Laboratory Tests 01/15/19 01/16/19 01/16/19 22:07 06:05 06:05 WBC 12.3 H Hgb 8.9 L Hct 27 L Plt Count 63 L Sodium 145 Potassium 5.2 H Chloride 117 H Carbon Dioxide 19 L BUN 69 H Creatinine 1.39 H Glucose 92 Total Protein 5.3 L Albumin 2.7 L Diagnostic Imaging: Exam Date: 12/06/18231 - SACRUM/COCCYX 2+ VWS IMPRESSION: Evaluation for osteomyelitis is severely limited due to generalized osteopenia. There is subcutaneous emphysema about the coccyx without a definite active osseous process. A pelvic CT would better delineate the osseous structures of the pelvis. Skin Deviation Note - Skin Deviation Findings Right breast - There is a superficial open area, measures 2.5 cm x 2 cm x 0.1 cm. The wound base is mostly pink granulation tissue, with an area of yellow slough. The area of slough measures 1.8 cm x 1 cm x 0.1 cm. The surrounding skin is intact. There is a small amount of serous drainage from the wound. No odor. Right flank - There are multiple superficial open areas and a deeper open area at the iliac crest. The wound at the iliac crest measures, 6 cm x 1.2 cm x 0.2 cm. The wound base is red granulation tissue and yellow slough. The surrounding skin is intact with some superficial open areas above it. There is a small amount of serous drainage noted from the wound. The larger wound on the lateral/ posterior flank measures, 2.1 cm x 1 cm x 0.1 cm. The wound base has a small amount of red granulation tissue, but is mostly white slough. The surrounding skin is intact. There is no drainage from the wound. There is a cluster of superficial open areas to the lateral flank/side area measures, 12 cm x 5 cm x 0.1 cm. The wound bases are red granulation tissue. The surrounding skin is intact. The wound to the lateral/anterior flank measures, 3 cm x 1.5 cm x 0.1 cm. The wound base is pink granulation tissue with yellow slough. The surrounding skin is intact. Sacrum/coccyx - There is a stage 4 pressure injury, measures 4 cm x 2.5 cm x 4.7 cm. Difficult to visualize the wound base. The surrounding skin with some dark tissue at 10 o'clock to 2 o'clock. There is some serosang drainage. The surrounding skin with erythema. Right buttock - There is a superficial open area measures, . The wound base with a small amount of pink granulation tissue, and mostly yellow slough. There is no drainage. The surrounding skin with erythema and skin flaking. Right posterior/lateral ankle - There is an intact blister, measures 4 cm x 3 cm. There is dark purplish discoloration in the blister. The surrounding skin is intact. There is no drainage. Left heel - There is an intact blister, measures 2.5 cm x 3 cm. There is no open skin. The surrounding skin is intact. The heel is slightly boggy. Left posterior calf - Unstageable wound, measures 1.7 cm x 1.7 cm x 0.2 cm. The wound base is dark eschar, with a small amount of yellow slough and pink granulation tissue. The surrounding skin with mild erythema. There is serous drainage from the wound. Wound Problem/Plan Assessment: Ms. Mahoney is a 78-year-old female with past clinical history significant for atrial fibrillation; history of pulmonary embolus, on Coumadin; asthma; COPD; history of C. diff colitis; hypothyroidism; osteomyelitis at the sacrum; chronic stage 4 sacral decubitus. She presented to the emergency room for evaluation of abnormal labs, and was admitted for septic shock. She presented to the hospital with known skin breakdown to the left leg and sacrum that she was following with the wound clinic for, and multiple other wounds. 1. Pressure ulcer to right breast. Recommend applying a piece of telfa to the area. If the wound develops more slough, recommend using medihoney alginate, followed by telfa and change the dressing every 3 days. 2. Left heel, deep tissue injury. Recommend keeping the heel elevated off the bed 3. Right lateral ankle, deep tissue injury and unstageable. Recommend keeping the leg off the bed. 4. Right flank shearing and stage pressure injury (at the iliac crest). Recommend applying medihoney alginate, followed by telfa and change the dressing every 3 days, limit use of tape. If tape needs to be used recommend using Hypafix tape. Use a lifting device to move in bed to help prevent further shearing. 5. Excoriated groin. Recommend cleaning the area and providing incontinence care as needed. Apply barrier cream to the area. Frequent turning and repositioning. 6. Stage 4 pressure injury to the sacrum. History of osteomyelitis in this area , this has been present for over a year. She has been treated for osteomyelitis. Recommend using compounded cream recommended by wound clinic, if this is not available - Apply silver powder, and pack wound with calcium alginate and cover with an ABD pain, change the dressing daily and as needed for soiling. If possible try to avoid use of tape. Frequent turning and repositioning. 7. Diet. NPO 8. Code Status. Full Code. 9. Disposition. Inpatient, disposition per primary medicine team. Is Patient a Wound Clinic Patient: Yes - Last visit 01/12/19 with Esther Mendoza NP Current Treatment: Sacrum - Silver powder, compound (NS,clindamycin, nystatin, and gentamucin), dampened kerlix packing, change daily. Left lateral LE - honey alginate, change 3x weekly Counseling and/or Coordination of Care Minutes: 50 Points of Discussion: TIME SPENT: 50 minutes was spent on this wound consultation, and 35 minutes was spent with the patient removing old dressings; assessing, measuring, and photographing wounds; and reapplying dressings. Attending: Asia Nava
[2019-01-16] MEDS: Norepinephrine 16MCG/ML IVPRE* 4,000 MCG/250 ML BAG IV SCH ×2 (17:29→22:29)
--- NOTE | 2019-01-16 19:36 | CONS ---
GASTROENTEROLOGY CONSULT: DATE OF CONSULT : 01/16/19 CONSULTING PHYSICIAN: Bartolo Yeager MD REASON FOR CONSULTATION: Weakness, fall in hemoglobin, heme positive stool and diarrhea in a woman either in a retirement or acute hospitalization over the last 7 months. HISTORY OF PRESENT ILLNESS: This 78-year-old woman has been at [facility] in [place] for 7 or 8 months. She left [facility] after 3 months stay for numerous complications following a TAVR done in January 2018, replacing a prior aortic valve that had been 18 years old. Per the patient's daughter who gives most of the history, at the retirement, she had seemed to be getting stronger and might have gone home to the daughter' s home tomorrow except that about a week ago, she started to get weak again. Her mouth has appeared irritated with some exudate and the daughter wonders if thrush has occurred as had been the case a couple of years ago. The patient has been treated for a sacral decubitus ulcer and osteomyelitis. She was admitted here on 12/06/18 and discharged on antibiotics after 4 days. Per the patient's daughter, at the retirement, she was eating a regular food until intake fell of 4 days ago. She began to complain of a sore throat about a week ago and that her cheeks would burn. Her pills were getting stuck. She has a history of acid reflux, on omeprazole snf. The daughter does not believe she has ever had an upper endoscopy. She has had colonoscopies in sequence, the last about 5 years ago, being negative by Dr. Garcia at [facility]. She has not had any overt gastrointestinal bleeding. PAST MEDICAL HISTORY: 1. Aortic valve disease - original valve in 1999, then replaced in 2018. 2. Atrial fibrillation. 3. Chronic Coumadin. 4. History of pulmonary emboli - having an IVC filter. 5. COPD. 6. Hypothyroidism. 7. Sacral decubitus and abscess. 8. Strangulated umbilical hernia surgery in 2000 with internal bleeding, complicating that. 9. Abdominoplasty - over 10 years ago. MEDICATIONS: She comes in with a listing of 24 meds includin. Oral ferrous sulfate. 2. Coumadin. 3. Aspirin 81. 4. Omeprazole 20. 5. Magnesium. ALLERGIES: Dozen while outlined in the history and physical. The specifics of VANCOMYCIN are not known. SOCIAL HISTORY: She has been in a rehab facility for the last 7 or 8 months. She lives in [place] and her daughter in [place]. REVIEW OF SYSTEMS: The patient has been confused. There is no history of alcoholism or seizures, TB, hepatitis, or internal bleeding. The rest of the review of systems is unobtainable. The patient's daughter reports that the patient has frequent excursions of her INR and will get mucosal bleeding and this did occur during a stay in [facility] a few months back. PHYSICAL EXAM: She is a frail woman in the ICU at intervals moaing though unable to specify why. She has a right IJ line and some hemorrhage around that. Mucous membranes are dry. There are crusted secretions that are white consistent with thrush. She says that her tailbone hurts, but nothing else. HEENT exam just shows dry mucous membranes. Breath sounds are difficult to discern. Heart sounds are erratic. The abdomen is obese, soft with positive bowel sounds. The patient was not rolled over, but the nurses report large decubitus. Extremities show glassy skin and poor tissue turgor and 2+ edema. HOSPITAL COURSE: Since being admitted, she has had the IJ line put in, a fair amount of IV fluid. Protonix given IV push twice a day and 2 units transfused. She has been placed on linezolid 600 mg because of a strep and staph positive culture from wound. MRSA screening on 12/06/18 and 01/16/19 has been negative. DIAGNOSTIC STUDIES/LAB DATA: Hemoglobin on admission 6.7, after 2 units 8.9; white count 13.1, now 12.3. IMPRESSION AND PLAN: The patient does appear to have thrush. Empiric treatment is appropriate and if she is not responding to oral treatment, parenteral would be optimal. Resolution will also be enhanced by rehydration and improvement in her general status. This may be difficult to obtain that she is clearly quite frail, losing ground nutritionally and her prognosis appears quite guarded as this decline appears progressive. Her diarrhea has not been active over the last 18 hours. She does not have any overt GI bleeding. She is not in condition right now to undergo endoscopic procedures and prophylactic PPI already started should be continued. . [id number]/[facility] #: [id number] [facility]
[2019-01-16] MEDS: NS 0.9% 1000 ML** 1,000 ML IV SCH (20:33)
--- NOTE | 2019-01-16 20:35 | CONS ---
CONSULTATION REPORT: DATE OF CONSULT: 01/16/19 PRIMARY CARE PROVIDER: Dr. Bar Rdz. PROVIDER REQUESTING CONSULTATION: Dr. Sander Lynn. CONSULTING SERVICE: Infectious Disease. PROVIDER: Micky Garcia NP ATTENDING PROVIDER: Dr. Ashok Fraser * (dictated by Micky Garcia NP). REASON FOR CONSULTATION: Leukocytosis, hypotension, and diarrhea. IMPRESSION: 1. Septic shock. The patient continues to require Levophed support for her blood pressure. Unclear source at this time. Chest x-ray with no acute disease. Pressure ulcers do not appear to be grossly infected. She does have a positive urinalysis with 3+ leukocytes, 3+ wbc's, 3+ bacteria. Suspect the urine is likely the cause of her sepsis. She has been receiving aztreonam while in the hospital. She has leukocytosis, this is slowly improving. She has been afebrile. 2. Acute kidney injury. Suspect secondary to dehydration and the patient is receiving IV hydration. 3. Anemia. No signs of active bleeding at this time. 4. Diarrhea. Clostridium difficile negative. 5. History of stage IV sacral ulcer and osteomyelitis. She has received a course of IV and oral antibiotics. 6. Multiple antibiotic allergies including CEPHALEXIN, CIPRO, METRONIDAZOLE, BACTRIM, and VANCOMYCIN. PLAN: Recommend continuing aztreonam until we see the results of her urine culture. She has multiple drug allergies, so we will have to use caution with ordering further antibiotics. We will add linezolid to give the patient gram- positive coverage as she currently only has gram-negative coverage. HISTORY OF PRESENT ILLNESS: Ms. Mahoney is a 78-year-old female with past clinical history significant for atrial fibrillation; history of pulmonary embolus, on Coumadin; asthma; COPD; history of C. diff colitis; hypothyroidism; osteomyelitis at the sacrum; chronic stage 4 sacral decubitus. The patient is unable to give any history at this time, and the HPI is obtained from the medical records. She was last hospitalized from 12/06/18 to 12/11/18 with a worsening sacral decubitus. At that time, she was seen in consultation by Infectious Disease and was continued on vancomycin and aztreonam given her allergies. The patient has previously been treated with an extended IV course of antibiotics for a sacral osteomyelitis. Prior to her admission in November, she had grown group B streptococcus in her wound and was started on doxycycline. Cultures obtained during that hospitalization with group B streptococcus, Streptococcus anginosus, and Staphylococcus aureus. She most recently was seen by the wound clinic on 01/12/19, having a sodium chloride, clindamycin, nystatin, and gentamicin compound applied to the wound bed followed by damp Kerlix. At that time, additionally, the patient was noted to have a left lateral lower leg pressure wound that was being treated with honey alginate. The patient has been working on increasing her protein. She was last seen in the Infectious Disease office by Dr. Fraser on 12/25/18. She had been on linezolid outpatient and tolerating it well. At that time, the daughter had noted that the odor from the wound was gone, her appetite was good and had no diarrhea. She was placed on 21 more days of antibiotics. She presented to the emergency room yesterday for abnormal labs with a high potassium and weakness from [facility] in [place]. It is reported that she finished her course of linezolid 2 days ago. Her daughter has noticed that she was severely weak, also noted to be confused and mildly hypotensive. According to her H and P, her daughter reported that her diarrhea had been getting worse and that she was having further skin breakdown due to constant moisture in the humberto area. Again, the patient was sent to the emergency room for further evaluation. While in the emergency room, the patient had labs showing leukocytosis with a white blood cell count of 13.1, hemoglobin of 6.7, hematocrit 22, platelet count 103, BUN 80, creatinine 1.7. Portable chest x-ray showing previous sternotomy and no changes, no infiltrates. She had subclavian line placed. She was referred to the hospitalist service for admission. While in the hospital, the patient continued to be hypotensive requiring Levophed, and was suspected to have an acute blood loss anemia. The patient has received 2 units of packed red blood cells. She had a urinalysis showing a 2+ protein, 3+ blood, 3+ leukocyte esterase, 3+ wbc's, 3+ rbc's, 3+ bacteria, negative for glucose. Repeat labs this morning shows slightly improved leukocytosis of 12.3. She continues to have an acute kidney injury, although her creatinine and BUN are trending down. She continues to be hyperkalemic. She continues to have altered mental status and is ill-appearing in the ICU. She has multiple areas of skin breakdowns. PAST MEDICAL HISTORY: 1. Atrial fibrillation. 2. History of PE with history of IVC filter placement. 3. Asthma. 4. COPD. 6. Hypothyroidism. 7. Sacral osteomyelitis with stage IV pressure injury. PAST SURGICAL HISTORY: 1. Status post 2 aortic valve surgeries. 2. Status post IVC filter placement. 3. Status post abdominal surgery. MEDICATIONS: Home medications include: 1. Levothyroxine 125 mcg by mouth daily. 2. Protein 1 liquid by mouth 3 times daily. 3. Saline nasal spray 0.65% two sprays to both nares every 12 hours. 4. Xanax 1 mg by mouth 4 times daily. 5. Zinc sulfate 220 mg by mouth daily. 6. Symbicort 160/4.5 two puffs inhalation twice daily. 7. Oxycodone 1 tablet by mouth twice daily. 8. Omeprazole 20 mg by mouth daily. 9. Nystatin suspension 5 mL by mouth twice daily 10. Nystatin topical applied topical 3 times daily. 11. Multivitamin 1 tablet by mouth daily. 12. Metoprolol tartrate 25 mg by mouth twice daily. 13. Magnesium oxide 400 mg by mouth daily. 14. Linezolid 600 mg by mouth daily, the patient was scheduled to complete 2 days ago. 15. Lactobacillus 1 tablet by mouth daily. 16. Loperamide 2 mg by mouth every 4 hours as needed for diarrhea. 17. Ipratropium/albuterol 1 inhalation twice daily. 18. Guaifenesin/codeine 100/10 mg 5 mL by mouth every 8 hours as needed for cough. 19. Gabapentin 300 mg by mouth daily. 20. Ferrous sulfate 325 mg by mouth daily. 21. Warfarin 1 tablet by mouth every other day. 22. Calcium carbonate/vitamin D one tablet by mouth daily. 23. Aspirin 81 mg by mouth daily. 24. Acetaminophen 500 mg by mouth every 8 hours as needed for fever or pain. Hospital medications: 1. DuoNeb 1 neb inhalation every 4 hours as needed for shortness of breath. 2. Aztreonam 1 g IV every 8 hours. 3. Hydromorphone 0.5 mg IV push every 4 hours as needed for pain. 4. Levothyroxine 62.5 mcg IV daily. 5. Lorazepam 0.25 mg IV push every 6 hours as needed for anxiety. 6. Levophed IV per protocol. 7. Nystatin 2000 units swab inside the mouth 4 times daily. 8. Protonix 40 mg IV every 12 hours. ALLERGIES: CAFFEINE, CEPHALEXIN, CHLORDIAZEPOXIDE, CIPRO, CODEINE, LIDOCAINE, LITHIUM, METRONIDAZOLE, MORPHINE, PENICILLIN, PROPAFENONE, SULFA, VANCOMYCIN, and IV CONTRAST DYE. FAMILY HISTORY: She denies family history of recurrent or resistant infections. Unable to determine family history as the patient is unable to really answer questions at this time. SOCIAL HISTORY: No reports of alcohol, tobacco, or recreational drug use. REVIEW OF SYSTEMS: Unable to perform a review of systems as the patient is really unable to answer questions, it is unclear when she answers yes to questions if these are that accurate answers or not. PHYSICAL EXAM: Temperature 98.6, heart rate 106, respiratory rate 24, O2 sat 82 % on 2 L via nasal cannula, blood pressure 90/46. General Appearance: The patient is ill-appearing, not really responding to questions, mostly moaning. Head: Normocephalic, atraumatic. EENT: Extraocular movements are intact. She has dry mucous membranes. Neurological: She is alert, unable to determine orientation. Cardiovascular: Regular rate and rhythm. Respiratory: Lung sounds clear to auscultation but diminished in the bases anteriorly. Abdomen: Bowel sounds present. Abdomen is soft, nontender with palpation. Extremities: No lower extremity edema. Musculoskeletal: No clubbing, cyanosis noted. Psychological: The patient is anxious but cooperative. Skin: The patient is noted to have multiple areas of skin breakdown. She has a wound to her left posterior calf measuring 1.7 x 1.7 cm, this has dark and yellow slough in the wound base. She has an intact blister to her left heel. She has a blister to her right lateral ankle. She has a stage 4 pressure injury to her sacrum that probes to the bone. The wound bed is mostly granulation tissue. The surrounding skin is excoriated. She also has excoriated skin in her groin. Under her right breast, she has what appears to be a pressure ulcer with yellow slough in the wound base. She has several open areas to her right flank with yellow slough in the wound beds. She is noted to have slightly pustular- looking rash to her right face at the corner of her lips. DIAGNOSTIC STUDIES/LABORATORY DATA: Sodium 145, potassium 5.2, chloride 117, CO2 of 19, BUN 64, creatinine 1.39, glucose 92. White blood cell count 12.5, hemoglobin 8.9, hematocrit 27, platelet count 63. Urinalysis with 2+ protein, 3 + blood, 3+ leukocyte esterase, 3+ rbc's, 3+ bacteria, and 3+ wbc's. Please see impression and recommendations outlined above. Thank you for asking us to see Ms. Mahoney in consultation. The case has been reviewed with my attending, Dr. Ashok Fraser, who agrees with the plan of care. Reviewed by MICKY GARCIA, RYAN-C 01/18/19 0850 [id number]/[facility] #: [id number] MTDD
[2019-01-17] MEDS: HYDROmorphone INJ* 0.5 MG/0.5 ML SYRINGE IV SLOW PU PRN ×5 (00:55→22:02)
[2019-01-17] MEDS: Linezolid 600 MG IVPREMIX(*) 600 MG/300 ML BAG IVPB SCH (01:12)
[2019-01-17] MEDS: Aztreonam (*) 1 GM in NS 0.9% 50 ML* 50 ML IVPB SCH ×3 (05:03→21:56)
[2019-01-17 05:04] LABS: ABS Lymphocytes 1.4 10^3/ul (1.0-4.8); ABS Monocytes 0.4 10^3/ul (0-0.8); ABS Neutrophils 12.9 10^3/ul (1.5-7.7); Hematocrit 27 % (35-47); Hemoglobin 8.7 g/dL (12.0-16.0); Lymphocyte % 9.6 %; Mean Corpuscular HGB Conc 32 g/dL (31-36); Mean Corpuscular Hemoglobin 28 pg (27-31); Mean Corpuscular Volume 87 fL (80-97); Mean Platelet Volume 9.2 fL (7.4-10.4); Platelet Count 60 10^3/uL (150-450); Red Blood Count 3.09 10^6 /uL (3.70-4.87); Red Cell Distribution Width 17 % (10-15); White Blood Count 14.8 10^3/uL (3.5-10.8)
[2019-01-17] MEDS: Levothyroxine INJ* 100 MCG/5 ML VIAL IV SCH (05:04)
[2019-01-17 05:08] LABS: INR 2.84 (0.82-1.09)
[2019-01-17 05:18] LABS: Calcium 7.2 mg/dL (8.6-10.3); EGFR African American 50.6 (>60); EGFR Non-African American 41.8 (>60); Potassium 4.9 mmol/L (3.5-5.0)
[2019-01-17] MEDS: Norepinephrine 16MCG/ML IVPRE* 4,000 MCG/250 ML BAG IV SCH ×4 (05:29→23:25)
[2019-01-17] MEDS: LORazepam INJ* 2 MG/ML 1 ML VIAL IV PUSH PRN (08:17)
[2019-01-17] MEDS ORDERED: Ondansetron INJ* 2 MG/ML VIAL IV PRN (08:32)
[2019-01-17] MEDS: Nystatin SUSPENSION* 100000 UNITS/ML 5 ML UDC SCH ×4 (08:41→21:55)
[2019-01-17] MEDS: Pantoprazole IV* 40 MG IV SCH ×2 (08:41→21:55)
--- NOTE | 2019-01-17 10:38 | PN ---
Date of Service: 01/17/19 Critical Care Services: = Vital Signs: Temp Pulse Resp BP SpO2 FiO2 98.8 F 113 41 109/67 97 29 01/17/19 09:15 01/17/19 09:15 01/17/19 09:15 01/17/19 09:15 01/17/19 09:15 01/16 21:49 Physical Exam: Gen: AO times 3 HEENT: EOMI Lungs: CTA B/L Cardiac: RRR Abdomen: +BS's, soft, NTP. No rebound or guarding Extremities: No FANNY Neuro: No focal deficits Fluid Balance (Past 24 Hours): I= O= Net Intake & Output 01/15/19 01/16/19 01/17/19 01/18/19 06:59 06:59 06:59 06:59 Intake Total 3658 3188 Output Total 275 610 130 Balance 3383 2578 -130 Weight 189 lb 9.561 oz 187 lb 13.341 oz Intake: IV Fluids 3077 1714 Aztreonem 1075 NS (0.9%) 77 639 IVPB 855 Aztreonem 122 NS (0.9%) 733 Medicated IV 619 CC - Norepinephrine/ 619 Levophed Oral 0 Packed Cells 581 Output: Mejias 275 610 130 Other: Date of Last Bowel t Movement # Bowel Movements 1 Estimated Stool Amount Large Labs: Laboratory Results - last 24 hr 01/16/19 01/17/19 01/17/19 06:05 04:45 04:45 WBC 14.8 H RBC 3.09 L Hgb 8.7 L Hct 27 L MCV 87 MCH 28 MCHC 32 RDW 17 H Plt Count 60 L MPV 9.2 Neut % (Auto) 87.5 Lymph % (Auto) 9.6 [place] % (Auto) 2.8 Eos % (Auto) 0.0 Baso % (Auto) 0.1 Absolute Neuts (auto) 12.9 H Absolute Lymphs (auto) 1.4 Absolute Monos (auto) 0.4 Absolute Eos (auto) 0.0 Absolute Basos (auto) 0.0 Absolute Nucleated RBC 0.0 Nucleated RBC % 0.0 Hem Pathologist Commnt INR (Anticoag Therapy) Sodium 145 Potassium 4.9 Chloride 119 H Carbon Dioxide 18 L Anion Gap 8 BUN 67 H Creatinine 1.24 H Est GFR ( Amer) 50.6 Est GFR (Non-Af Amer) 41.8 BUN/Creatinine Ratio 54.0 H Glucose 130 H Calcium 7.2 L 01/17/19 04:45 WBC RBC Hgb Hct MCV MCH MCHC RDW Plt Count MPV Neut % (Auto) Lymph % (Auto) [place] % (Auto) Eos % (Auto) Baso % (Auto) Absolute Neuts (auto) Absolute Lymphs (auto) Absolute Monos (auto) Absolute Eos (auto) Absolute Basos (auto) Absolute Nucleated RBC Nucleated RBC % Hem Pathologist Commnt INR (Anticoag Therapy) 2.84 H Sodium Potassium Chloride Carbon Dioxide Anion Gap BUN Creatinine Est GFR ( Amer) Est GFR (Non-Af Amer) BUN/Creatinine Ratio Glucose Calcium Impression: s/p lysis of adhesions s/p mechanical ventilation post-op aspiration PNA ileus anemia Plan: continue ABX Once NGT out would do speech and swallow evaluation advance diet as per surgery incentive spirometry OOB to chair and continue PT. May need placement Critical Care Time: 56
--- NOTE | 2019-01-17 10:47 | PN ---
Date of Service: 01/17/19 Critical Care Services: remains on low dose Levophed (8) renal functions improving mental status improving Vital Signs: Temp Pulse Resp BP SpO2 FiO2 98.8 F 113 41 109/67 97 29 01/17/19 09:15 01/17/19 09:15 01/17/19 09:15 01/17/19 09:15 01/17/19 09:15 01/16 21:49 Physical Exam: Gen:AO times 2 Lungs: Decreased BS's Cardiac: RRR Abdomen: + BS, soft, NTP Extremities: + 2 FANNY Neuro: moves all extremities Skin : Sacral decubs, decubs on feet Fluid Balance (Past 24 Hours): I= O= Net Intake & Output 01/15/19 01/16/19 01/17/19 01/18/19 06:59 06:59 06:59 06:59 Intake Total 3658 3188 Output Total 275 610 130 Balance 3383 2578 -130 Weight 189 lb 9.561 oz 187 lb 13.341 oz Intake: IV Fluids 3077 1714 Aztreonem 1075 NS (0.9%) 77 639 IVPB 855 Aztreonem 122 NS (0.9%) 733 Medicated IV 619 CC - Norepinephrine/ 619 Levophed Oral 0 Packed Cells 581 Output: Mejias 275 610 130 Other: Date of Last Bowel t Movement # Bowel Movements 1 Estimated Stool Amount Large Labs: Laboratory Results - last 24 hr 01/16/19 01/17/19 01/17/19 06:05 04:45 04:45 WBC 14.8 H RBC 3.09 L Hgb 8.7 L Hct 27 L MCV 87 MCH 28 MCHC 32 RDW 17 H Plt Count 60 L MPV 9.2 Neut % (Auto) 87.5 Lymph % (Auto) 9.6 [place] % (Auto) 2.8 Eos % (Auto) 0.0 Baso % (Auto) 0.1 Absolute Neuts (auto) 12.9 H Absolute Lymphs (auto) 1.4 Absolute Monos (auto) 0.4 Absolute Eos (auto) 0.0 Absolute Basos (auto) 0.0 Absolute Nucleated RBC 0.0 Nucleated RBC % 0.0 Hem Pathologist Commnt INR (Anticoag Therapy) Sodium 145 Potassium 4.9 Chloride 119 H Carbon Dioxide 18 L Anion Gap 8 BUN 67 H Creatinine 1.24 H Est GFR ( Amer) 50.6 Est GFR (Non-Af Amer) 41.8 BUN/Creatinine Ratio 54.0 H Glucose 130 H Calcium 7.2 L 01/17/19 04:45 WBC RBC Hgb Hct MCV MCH MCHC RDW Plt Count MPV Neut % (Auto) Lymph % (Auto) [place] % (Auto) Eos % (Auto) Baso % (Auto) Absolute Neuts (auto) Absolute Lymphs (auto) Absolute Monos (auto) Absolute Eos (auto) Absolute Basos (auto) Absolute Nucleated RBC Nucleated RBC % Hem Pathologist Commnt INR (Anticoag Therapy) 2.84 H Sodium Potassium Chloride Carbon Dioxide Anion Gap BUN Creatinine Est GFR ( Amer) Est GFR (Non-Af Amer) BUN/Creatinine Ratio Glucose Calcium Impression: Septic shock HOLGER Dehydration Hx CAD s/p CABG S/P TAVR Hx of OM sacrum and now stage IV decubs Dementia COPD on home 02 Anemia without evidence of bleeding Hx of C.Difficile Hx of thrush Swallowing issues as of late Plan: continue Levophed. Maintain MAP >65 ABX per ID speech and swallow today Start Venofer for iron deficiency PT/OT continue gentle IVF's Appreciate ID, Pastoral and PC services help Discussed case with daughter during rounds. Informed her that PC would come by to see her and the patient and d/w them further GOC and Code Status. Critical Care Time: 45 minutes
--- NOTE | 2019-01-17 11:41 | PN ---
Progress Note - Progress Note Date of Service: 01/17/19 SOAP: Subjective: CC: shock HPI: 78 year old woman with chronic decubitus ulcer, recent diarrhea admitted with deydration and shock. No diarrhea today. No fever or rash per RN. Objective: Vital Signs Temp 37.1 C 01/17/19 11:00 Pulse 112 01/17/19 11:00 Resp 29 01/17/19 11:23 BP 105/46 01/17/19 11:00 Pulse Ox 98 01/17/19 11:00 Intake & Output 01/16/19 01/17/19 01/17/19 18:59 06:59 18:59 Intake Total 1330 1858 Output Total 250 360 130 Balance 1080 1498 -130 Weight 187 lb 13.341 oz Intake: IV Fluids 1075 639 Aztreonem 1075 NS (0.9%) 639 IVPB 122 733 Aztreonem 122 NS (0.9%) 733 Medicated IV 133 486 CC - Norepinephrine/ 133 486 Levophed Oral 0 Output: Mejias 250 360 130 Other: Date of Last Bowel t Movement # Bowel Movements 1 Estimated Stool Amount Large Gen:awake, no distress HEENT: no thrush Heart:RRR no murmur Lungs:CTA BL Abd:+BS NTND soft Skin: no rash Laboratory Results - last 24 hr 01/16/19 01/17/19 01/17/19 06:05 04:45 04:45 WBC 14.8 H RBC 3.09 L Hgb 8.7 L Hct 27 L MCV 87 MCH 28 MCHC 32 RDW 17 H Plt Count 60 L MPV 9.2 Neut % (Auto) 87.5 Lymph % (Auto) 9.6 [place] % (Auto) 2.8 Eos % (Auto) 0.0 Baso % (Auto) 0.1 Absolute Neuts (auto) 12.9 H Absolute Lymphs (auto) 1.4 Absolute Monos (auto) 0.4 Absolute Eos (auto) 0.0 Absolute Basos (auto) 0.0 Absolute Nucleated RBC 0.0 Nucleated RBC % 0.0 Hem Pathologist Commnt INR (Anticoag Therapy) Sodium 145 Potassium 4.9 Chloride 119 H Carbon Dioxide 18 L Anion Gap 8 BUN 67 H Creatinine 1.24 H Est GFR ( Amer) 50.6 Est GFR (Non-Af Amer) 41.8 BUN/Creatinine Ratio 54.0 H Glucose 130 H Calcium 7.2 L 01/17/19 04:45 WBC RBC Hgb Hct MCV MCH MCHC RDW Plt Count MPV Neut % (Auto) Lymph % (Auto) [place] % (Auto) Eos % (Auto) Baso % (Auto) Absolute Neuts (auto) Absolute Lymphs (auto) Absolute Monos (auto) Absolute Eos (auto) Absolute Basos (auto) Absolute Nucleated RBC Nucleated RBC % Hem Pathologist Commnt INR (Anticoag Therapy) 2.84 H Sodium Potassium Chloride Carbon Dioxide Anion Gap BUN Creatinine Est GFR ( Amer) Est GFR (Non-Af Amer) BUN/Creatinine Ratio Glucose Calcium Microbiology 01/16/19 03:38 Urine Culture - Preliminary Urine Klebsiella Pneumoniae Proteus Species 01/16/19 00:00 Aerobic Blood Culture - Preliminary Blood Venous No Growth Day 1 Anaerobic Blood Culture - Preliminary No Growth Day 1 Assessment: 1. Cystitis with septic shock 2. chronic decubitus ulcer 3. s/p AVR 4. multiple abx allergy Plan: 1. continue aztreonam, dc linezolid; rehydration and vasopressors per ICU team 2. wound care as ordered Discussed with Dr Lynn and patient's daughter
[2019-01-17] MEDS: NS 0.9% 1000 ML** 1,000 ML IV SCH (12:25)
--- NOTE | 2019-01-17 15:23 | PN ---
Progress Note - Progress Note Date of Service: 01/17/19 Note: Spoke with pt today will meet with daughter tomorrow.
[2019-01-17] MEDS ORDERED: NS 0.9% 50 ML* 50 ML ONE (21:37)
[2019-01-17] MEDS ORDERED: NS 0.9% 1000 ML** 1,000 ML IV ONE (23:17)
[2019-01-18] MEDS: NS 0.9% 1000 ML** 1,000 ML IV SCH (00:24)
[2019-01-18] MEDS: LORazepam INJ* 2 MG/ML 1 ML VIAL IV PUSH PRN ×5 (01:42→18:50)
[2019-01-18] MEDS: HYDROmorphone INJ* 0.5 MG/0.5 ML SYRINGE IV SLOW PU PRN ×3 (01:42→12:56)
[2019-01-18] MEDS ORDERED: Furosemide IV* 10 MG/ML 2 ML VIAL (20 MG) IV ONE (02:20)
[2019-01-18] MEDS ORDERED: Furosemide IV* 10 MG/ML 2 ML VIAL (20 MG) ONE (02:25)
[2019-01-18] MEDS: Norepinephrine 16MCG/ML IVPRE* 4,000 MCG/250 ML BAG IV SCH ×4 (02:42→13:07)
[2019-01-18] MEDS ORDERED: HYDROmorphone INJ* 0.5 MG/0.5 ML SYRINGE IV ONE (04:20)
[2019-01-18] MEDS ORDERED: HYDROmorphone INJ* 0.5 MG/0.5 ML SYRINGE ONE (04:23)
[2019-01-18 05:52] LABS: ABS Lymphocytes 1.1 10^3/ul (1.0-4.8); ABS Monocytes 0.4 10^3/ul (0-0.8); ABS Neutrophils 14.7 10^3/ul (1.5-7.7); Hematocrit 27 % (35-47); Hemoglobin 8.3 g/dL (12.0-16.0); Lymphocyte % 6.9 %; Mean Corpuscular HGB Conc 31 g/dL (31-36); Mean Corpuscular Hemoglobin 28 pg (27-31); Mean Corpuscular Volume 91 fL (80-97); Mean Platelet Volume 9.5 fL (7.4-10.4); Platelet Count 48 10^3/uL (150-450); Red Blood Count 2.98 10^6 /uL (3.70-4.87); Red Cell Distribution Width 18 % (10-15); White Blood Count 16.3 10^3/uL (3.5-10.8)
[2019-01-18 05:56] LABS: INR 3.39 (0.82-1.09)
[2019-01-18 06:08] LABS: BUN/Creatinine Ratio 43.4 (8-20); Calcium 7.1 mg/dL (8.6-10.3); EGFR Non-African American 33.1 (>60)
[2019-01-18 06:13] LABS: Potassium 5.1 mmol/L (3.5-5.0)
[2019-01-18] MEDS ORDERED: NS 0.9% 50 ML* 50 ML ONE ×2 (06:41→14:47)
[2019-01-18] MEDS: Aztreonam (*) 1 GM in NS 0.9% 50 ML* 50 ML IVPB SCH ×3 (06:44→21:21)
[2019-01-18] MEDS: Levothyroxine INJ* 100 MCG/5 ML VIAL IV SCH (06:44)
[2019-01-18] MEDS ORDERED: NS 0.9% 1000 ML** 1,000 ML IV ONE (08:47)
[2019-01-18] MEDS: Nystatin SUSPENSION* 100000 UNITS/ML 5 ML UDC SCH ×4 (09:36→19:48)
[2019-01-18] MEDS: Pantoprazole IV* 40 MG IV SCH ×2 (09:37→19:48)
[2019-01-18] MEDS ORDERED: Vasopressin* 100 UNITS in D5W 250 ML BAG* 245 ML IV SCH (11:00)
[2019-01-18] MEDS ORDERED: Heparin VIAL(*) 5000 UNITS/ML VIAL (FIVE THOUSAND) SUBCUT SCH (12:00)
[2019-01-18] MEDS ORDERED: Acetaminophen IV 1GM/100ML * 100 ML IVPB PRN (12:16)
--- NOTE | 2019-01-18 13:11 | CONSULT ---
Palliative / Hospice Consult Ordering Provider: Sander Lynn - PCP-Kendell Referal Reason: Goals of care discussion/diarrhea/tylenol - Subjective Code Status: DNR Advance Directives Location: No Advance Directives MOLST Part A Completed: Yes - completed with family on chart MOLST Part E Completed:: Yes - completed with family on chart - History or Present Illness History or Present Illness: 78yo female resident of [facility] with COPD presents to ER with weakness and abnormal labs. 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 PSHx non smoker, no drugs, no etoh, with 2 children her daughter Melani is her HCP(no document on the chart). Studies CXR-neg, ekg- NSR, H/H 8.7/27, plt 60, BUN/Cr 67/1.24, egfr 41.8, Ca 7.2, alb 2.7 and Urine cult K.pneumonia. Pt has been at [facility] for sacral wound abscess & osteomyelitis and was about to be discharged when daughter noticed her mother with weakness. Pt admitted to ICU with septic shock, diarrhea, HOLGER and sacral wound. All history is from the pt, family and medical record. Lab Values: Abnormal Lab Results 01/18/19 01/18/19 01/18/19 05:25 05:25 05:25 WBC 16.3 H RBC 2.98 L Hgb 8.3 L Hct 27 L MCV 91 MCH 28 MCHC 31 RDW 18 H Plt Count 48 L MPV 9.5 Neut % (Auto) 90.3 Lymph % (Auto) 6.9 [place] % (Auto) 2.5 Eos % (Auto) 0.0 Baso % (Auto) 0.3 Absolute Neuts (auto) 14.7 H Absolute Lymphs (auto) 1.1 Absolute Monos (auto) 0.4 Absolute Eos (auto) 0.0 Absolute Basos (auto) 0.0 Absolute Nucleated RBC 0.0 Nucleated RBC % 0.0 INR (Anticoag Therapy) 3.39 H Sodium 147 H Potassium 5.1 H Chloride 125 H Carbon Dioxide 14 L* Anion Gap 8 BUN 66 H Creatinine 1.52 H Est GFR ( Amer) 40.0 Est GFR (Non-Af Amer) 33.1 BUN/Creatinine Ratio 43.4 H Glucose 97 Lactic Acid Calcium 7.1 L Ionized Calcium 01/18/19 01/18/19 06:20 06:20 WBC RBC Hgb Hct MCV MCH MCHC RDW Plt Count MPV Neut % (Auto) Lymph % (Auto) [place] % (Auto) Eos % (Auto) Baso % (Auto) Absolute Neuts (auto) Absolute Lymphs (auto) Absolute Monos (auto) Absolute Eos (auto) Absolute Basos (auto) Absolute Nucleated RBC Nucleated RBC % INR (Anticoag Therapy) Sodium Potassium Chloride Carbon Dioxide Anion Gap BUN Creatinine Est GFR ( Amer) Est GFR (Non-Af Amer) BUN/Creatinine Ratio Glucose Lactic Acid 2.4 H* Calcium Ionized Calcium 1.11 L Laboratory Last Values WBC 16.3 10^3/uL (3.5-10.8) H 01/18/19 05:25 RBC 2.98 10^6 /uL (3.70-4.87) L 01/18/19 05:25 Hgb 8.3 g/dL (12.0-16.0) L 01/18/19 05:25 Hct 27 % (35-47) L 01/18/19 05:25 MCV 91 fL (80-97) 01/18/19 05:25 MCH 28 pg (27-31) 01/18/19 05:25 MCHC 31 g/dL (31-36) 01/18/19 05:25 RDW 18 % (10-15) H 01/18/19 05:25 Plt Count 48 10^3/uL (150-450) L 01/18/19 05:25 MPV 9.5 fL (7.4-10.4) 01/18/19 05:25 Neut % (Auto) 90.3 % 01/18/19 05:25 Lymph % (Auto) 6.9 % 01/18/19 05:25 [place] % (Auto) 2.5 % 01/18/19 05:25 Eos % (Auto) 0.0 % 01/18/19 05:25 Baso % (Auto) 0.3 % 01/18/19 05:25 Absolute Neuts (auto) 14.7 10^3/ul (1.5-7.7) H 01/18/19 05:25 Absolute Lymphs (auto) 1.1 10^3/ul (1.0-4.8) 01/18/19 05:25 Absolute Monos (auto) 0.4 10^3/ul (0-0.8) 01/18/19 05:25 Absolute Eos (auto) 0.0 10^3/ul (0-0.6) 01/18/19 05:25 Absolute Basos (auto) 0.0 10^3/ul (0-0.2) 01/18/19 05:25 Absolute Nucleated RBC 0.0 10^3/ul 01/18/19 05:25 Nucleated RBC % 0.0 01/18/19 05:25 Hem Pathologist Commnt 01/16/19 06:05 INR (Anticoag Therapy) 3.39 (0.82-1.09) H 01/18/19 05:25 APTT 34.2 seconds (26.0-38.0) 01/16/19 00:00 VBG pH 7.17 (7.32-7.43) L 01/16/19 00:00 VBG pCO2 48 mmHg (41-51) 01/16/19 00:00 VBG pO2 46.0 mmHg (35-45) H 01/16/19 00:00 VBG HCO3 15.7 mmol/L (24-28) L 01/16/19 00:00 VBG O2 Saturation 74.2 % (70-80) 01/16/19 00:00 VBG Base Excess -11.0 mmol/L (0.0-4.0) L 01/16/19 00:00 Sodium 147 mmol/L (135-145) H 01/18/19 05:25 Potassium 5.1 mmol/L (3.5-5.0) H 01/18/19 05:25 Chloride 125 mmol/L (101-111) H 01/18/19 05:25 Carbon Dioxide 14 mmol/L (22-32) L* 01/18/19 05:25 Anion Gap 8 mmol/L (2-11) 01/18/19 05:25 BUN 66 mg/dL (6-24) H 01/18/19 05:25 Creatinine 1.52 mg/dL (0.51-0.95) H 01/18/19 05:25 Est GFR ( Amer) 40.0 (>60) 01/18/19 05:25 Est GFR (Non-Af Amer) 33.1 (>60) 01/18/19 05:25 BUN/Creatinine Ratio 43.4 (8-20) H 01/18/19 05:25 Glucose 97 mg/dL (70-100) 01/18/19 05:25 Lactic Acid 2.4 mmol/L (0.5-2.0) H* 01/18/19 06:20 Calcium 7.1 mg/dL (8.6-10.3) L 01/18/19 05:25 Ionized Calcium 1.11 mmol/L (1.16-1.32) L 01/18/19 06:20 Total Bilirubin 0.40 mg/dL (0.2-1.0) 01/15/19 22:07 AST 11 U/L (13-39) L 01/16/19 00:00 ALT 8 U/L (7-52) 01/15/19 22:07 Alkaline Phosphatase 105 U/L (34-104) H 01/15/19 22:07 Troponin I 0.03 ng/mL (<0.04) 01/15/19 22:07 Total Protein 5.3 g/dL (6.4-8.9) L 01/15/19 22:07 Albumin 2.7 g/dL (3.2-5.2) L 01/15/19 22:07 Globulin 2.6 g/dL (2-4) 01/15/19 22:07 Albumin/Globulin Ratio 1.0 (1-3) 01/15/19 22:07 Urine Color Yellow 01/16/19 03:38 Urine Appearance Turbid 01/16/19 03:38 Urine pH 5.0 (5-9) 01/16/19 03:38 Ur Specific [place] 1.013 (1.010-1.030) 01/16/19 03:38 Urine Protein 2+(100 mg/dl) (Negative) A 01/16/19 03:38 Urine Ketones Negative (Negative) 01/16/19 03:38 Urine Blood 3+ (Negative) A 01/16/19 03:38 Urine Nitrate Negative (Negative) 01/16/19 03:38 Urine Bilirubin Negative (Negative) 01/16/19 03:38 Urine Urobilinogen Negative (Negative) 01/16/19 03:38 Ur Leukocyte Esterase 3+ (Negative) A 01/16/19 03:38 Urine WBC (Auto) 3+(>20/hpf) (Absent) A 01/16/19 03:38 Urine RBC (Auto) 3+(>10/hpf) (Absent) A 01/16/19 03:38 Ur Squamous Epith Cells Cancelled 01/15/19 21:10 Ur Transition Epith Cell Cancelled 01/15/19 21:10 Ur Renal Epithelial Cell Cancelled 01/15/19 21:10 Calcium Carbonate Cryst Cancelled 01/15/19 21:10 Calcium Phosphate Cryst Cancelled 01/15/19 21:10 Calcium Oxalate Crystal Cancelled 01/15/19 21:10 Leucine Crystals Cancelled 01/15/19 21:10 Cystine Crystals Cancelled 01/15/19 21:10 Uric Acid Crystals Cancelled 01/15/19 21:10 Triple Phos Crystals Cancelled 01/15/19 21:10 Tyrosine Crystals Cancelled 01/15/19 21:10 Amorphous Crystals Cancelled 01/15/19 21:10 Urine Bacteria 3+ (Absent) A 01/16/19 03:38 Cellular Casts Cancelled 01/15/19 21:10 Epithelial Casts Cancelled 01/15/19 21:10 Fatty Casts Cancelled 01/15/19 21:10 Hyaline Casts Cancelled 01/15/19 21:10 Granular Casts Cancelled 01/15/19 21:10 Waxy Casts Cancelled 01/15/19 21:10 Broad Casts Cancelled 01/15/19 21:10 RBC Casts Cancelled 01/15/19 21:10 WBC Casts Cancelled 01/15/19 21:10 Urine Trichomonas Cancelled 01/15/19 21:10 Urine Yeast Cancelled 01/15/19 21:10 Urine Sperm Cancelled 01/15/19 21:10 Ur Oval Fat Bodies Cancelled 01/15/19 21:10 Urinalysis Comment Cancelled 01/15/19 21:10 Urine Glucose Negative (Negative) 01/16/19 03:38 Urine Ascorbic Acid Cancelled 01/15/19 21:10 Blood Type O Positive 01/16/19 00:35 Antibody Screen Negative 01/16/19 00:35 Crossmatch See Detail 01/16/19 00:35 - Objective Active Medications: Albuterol/Ipratropium (Duoneb (Albuterol 2.5 Mg/Ipratropium 0.5 Mg)) 1 neb INH Q4H PRN PRN Reason: SOB/WHEEZING Hydromorphone HCl (Dilaudid Inj*) 0.5 mg IV SLOW PU Q4H PRN PRN Reason: PAIN - SEVERE Last Admin: 01/18/19 12:56 Dose: 0.5 mg Aztreonam 1 gm/ Sodium (Chloride) 50 mls @ 200 mls/hr IVPB Q8HR FRANCINE Last Admin: 01/18/19 06:44 Dose: 200 mls/hr Norepinephrine Bitartrate (Levophed 16 Mcg/Ml Premix*) 4,000 mcg in 250 mls @ 0 mls/hr IV .INITIAL RATE [facility]; Protocol Last Admin: 01/18/19 08:33 Dose: 143 mls/hr Sodium Chloride (Ns 0.9% 1000 Ml) 1,000 mls @ 75 mls/hr IV PER RATE [facility] Last Admin: 01/18/19 00:24 Dose: 75 mls/hr Vasopressin 100 units/ (Dextrose) 250 mls @ 6 mls/hr IV .(Initial Rate) [facility]; Protocol Last Admin: 01/18/19 11:17 Dose: 6 mls/hr Acetaminophen (Ofirmev*) 100 mls @ 400 mls/hr IVPB Q8H PRN PRN Reason: PAIN SCALE 4-6 Stop: 01/19/19 12:15 Levothyroxine Sodium (Synthroid Inj*) 62.5 mcg IV 0600 [facility] Last Admin: 01/18/19 06:44 Dose: 62.5 mcg Lorazepam (Ativan Inj*) 0.25 mg IV PUSH Q6H PRN PRN Reason: ANXIETY Last Admin: 01/18/19 12:55 Dose: 0.25 mg Miscellaneous (Ativan Pyxis Mancini) 1 ea N/A .ATIVAN IV MANCINI PRN PRN Reason: PYXIS MANCINI Nystatin (Nystatin Suspension*) 200,000 units .SEE ORDER QID FRANCINE Last Admin: 01/18/19 09:36 Dose: 200,000 units Ondansetron HCl (Zofran Inj*) 4 mg IV Q6H PRN PRN Reason: NAUSEA Last Admin: 01/17/19 08:41 Dose: 4 mg Pantoprazole Sodium (Protonix Iv*) 40 mg IV Q12HR FRANCINE Last Admin: 01/18/19 09:37 Dose: 40 mg Vital Signs: Vital Signs: Temp Pulse Resp BP Pulse Ox 99.1 F 112 21 74/47 100 01/18/19 12:16 01/18/19 12:16 01/18/19 12:56 01/18/19 12:16 01/18/19 12:16 Patient Weight: Weight 87.6 kg Intake and Output: Intake & Output 01/16/19 01/17/19 01/18/19 01/19/19 06:59 06:59 06:59 06:59 Intake Total 3658 3188 3839 Output Total 275 610 531 21 Balance 3383 2578 3308 -21 Weight 86 kg 85.2 kg 87.6 kg Intake: IV Fluids 3077 1714 2565 Aztreonem 1075 50 NS (0.9%) 77 639 2515 IVPB 855 139 Aztreonem 122 139 NS (0.9%) 733 Medicated IV 619 1135 CC - Norepinephrine/ 619 1135 Levophed Oral 0 Packed Cells 581 Output: Mejias 275 610 531 21 Other: Date of Last Bowel t Movement # Bowel Movements 1 Estimated Stool Amount Large ADLs: Meal Record Start: 01/16/19 02: 25 Freq: ,,18 Status: Active Protocol: Created 01/16/19 02:25 System (Rec: 01/16/19 02:25 System ICU-C25) Document 01/16/19 09:00 [id number] (Rec: 01/16/19 14:52 [id number] ICU-C12) Document 01/16/19 13:00 [id number] (Rec: 01/16/19 16:42 [id number] ICU-C12) Document 01/16/19 18:00 [id number] (Rec: 01/16/19 20:04 [id number] ICU-C21) Document 01/17/19 09:00 [id number] (Rec: 01/17/19 09:48 [id number] ICU-C15) Document 01/17/19 13:00 [id number] (Rec: 01/17/19 13:44 [id number] ICU-C15) Document 01/17/19 18:00 [id number] (Rec: 01/17/19 20:13 [id number] ICU-C15) Intake and Output Start: 01/15/19 20: 51 Freq: Status: Active Protocol: Created 01/15/19 20:51 System (Rec: 01/15/19 20:51 System [id number]) Intake and Output Start: 01/16/19 02: 25 Freq: Q1HR Status: Active Protocol: Created 01/16/19 02:25 System (Rec: 01/16/19 02:25 System ICU-C25) Document 01/16/19 04:00 [id number] (Rec: 01/16/19 05:04 [id number] ICU-C25) Document 01/16/19 05:00 [id number] (Rec: 01/16/19 05:57 [id number] ICU-C25) Document 01/16/19 06:00 KOI5974 (Rec: 01/16/19 06:27 GEU1859 ICU-C25) Document 01/16/19 07:15 [id number] (Rec: 01/16/19 07:15 [id number] ICU-M30) Document 01/16/19 08:56 [id number] (Rec: 01/16/19 08:56 YJW1660 ICU-M30) Document 01/16/19 08:59 UCT8660 (Rec: 01/16/19 08:59 XPM1265 ICU-C12) Document 01/16/19 11:00 [id number] (Rec: 01/16/19 11:20 NHP3831 ICU-M30) Document 01/16/19 13:00 [id number] (Rec: 01/16/19 13:49 TCN2039 ICU-C12) Document 01/16/19 16:00 DUJ1041 (Rec: 01/16/19 16:10 IMH0866 ICU-C12) Document 01/16/19 17:00 WBO3675 (Rec: 01/16/19 17:52 CSY2923 ICU-C12) Document 01/16/19 18:00 [id number] (Rec: 01/16/19 20:05 ZKV6741 ICU-C21) Document 01/16/19 20:00 QWW8638 (Rec: 01/16/19 22:08 LZW9331 ICU-C12) Document 01/16/19 21:00 OZJ1419 (Rec: 01/16/19 22:08 [id number] ICU-C12) Document 01/16/19 22:00 UUX4841 (Rec: 01/16/19 22:08 VTK3979 ICU-C12) Document 01/16/19 23:00 TXW4831 (Rec: 01/16/19 23:36 WBP4409 ICU-C12) Document 01/16/19 23:36 CLW6884 (Rec: 01/16/19 23:37 UVZ7652 ICU-C12) Document 01/17/19 01:00 KTK8966 (Rec: 01/17/19 02:07 CXB3886 ICU-C12) Document 01/17/19 02:00 RFM6151 (Rec: 01/17/19 02:07 [id number] ICU-C12) Document 01/17/19 03:00 YAA6370 (Rec: 01/17/19 03:21 BGW9715 ICU-C12) Document 01/17/19 03:38 IVW0085 (Rec: 01/17/19 03:48 NTX1216 ICU-C12) Document 01/17/19 05:00 HAF7670 (Rec: 01/17/19 05:02 OGM1529 ICU-M30) Document 01/17/19 05:31 XIQ2980 (Rec: 01/17/19 05:31 OZA1732 ICU-M30) Document 01/17/19 07:00 [id number] (Rec: 01/17/19 08:53 QHD0174 ICU-M30) Document 01/17/19 08:00 DSL9760 (Rec: 01/17/19 08:53 AKM3668 ICU-M30) Document 01/17/19 08:52 HKV8286 (Rec: 01/17/19 08:53 UGH7200 ICU-M30) Document 01/17/19 10:00 OUF5961 (Rec: 01/17/19 12:51 TPS4938 ICU-C15) Document 01/17/19 11:00 MYS9392 (Rec: 01/17/19 12:51 SYW6877 ICU-C15) Document 01/17/19 12:00 EJO3416 (Rec: 01/17/19 12:51 PKZ1301 ICU-C15) Document 01/17/19 13:00 LXH7969 (Rec: 01/17/19 15:03 YQA6105 ICU-C15) Document 01/17/19 14:00 INP9881 (Rec: 01/17/19 15:03 CSX7203 ICU-C15) Document 01/17/19 15:00 UPJ7942 (Rec: 01/17/19 15:03 EZJ6332 ICU-C15) Document 01/17/19 16:00 VVC6412 (Rec: 01/17/19 17:02 TFJ5270 ICU-C15) Document 01/17/19 17:00 RPH9023 (Rec: 01/17/19 17:02 MXZ5371 ICU-C15) Document 01/17/19 19:41 SSV1322 (Rec: 01/17/19 19:41 WGG6441 ICU-M30) Document 01/17/19 20:00 LLU0731 (Rec: 01/18/19 00:55 LYG0286 ICU-C15) Document 01/17/19 21:00 MRR5400 (Rec: 01/18/19 01:51 OWH2320 ICU-C15) Document 01/17/19 22:00 LMT9544 (Rec: 01/18/19 01:54 MJR1013 ICU-C15) Document 01/17/19 23:00 NVV5517 (Rec: 01/18/19 01:55 [id number] ICU-C15) Document 01/18/19 00:00 CDL1573 (Rec: 01/18/19 02:05 KCS9068 ICU-C15) Document 01/18/19 01:00 YRU8643 (Rec: 01/18/19 02:06 ZGM9759 ICU-C15) Document 01/18/19 02:00 OQP3411 (Rec: 01/18/19 02:08 HXQ4163 ICU-C15) Document 01/18/19 03:00 SGY4289 (Rec: 01/18/19 03:02 PUI4104 ICU-C15) Document 01/18/19 04:00 STH1201 (Rec: 01/18/19 04:14 FDH6788 ICU-C15) Document 01/18/19 05:00 JKO3460 (Rec: 01/18/19 05:18 EWO5629 ICU-C15) Document 01/18/19 06:00 GEA7714 (Rec: 01/18/19 06:49 YXM0844 ICU-M30) Document 01/18/19 07:00 IRT8653 (Rec: 01/18/19 07:14 TSH4141 ICU-M30) Co-Sign 01/18/19 07:00 [id number] Document 01/18/19 08:00 NQX3178 (Rec: 01/18/19 08:29 LJA4295 ICU-C12) Document 01/18/19 09:00 CJP7596 (Rec: 01/18/19 11:58 WCF0688 ICU-C12) Document 01/18/19 10:00 GSV0309 (Rec: 01/18/19 11:58 RBR7560 ICU-C12) Document 01/18/19 11:00 LYZ6749 (Rec: 01/18/19 11:58 [id number] ICU-C12) Head: Normal Eyes: No Scleral Icterus Ears/Nose/Mouth/Throat: NL Teeth, Lips, Gums, - - Dry mucous membranes Neck: NL Appearance and Movements; NL JVP Cardiovascular: NL Sounds; No Murmurs; No JVD Respiratory: Symmetrical Chest Expansion and Respiratory Effort Abdominal: NL Sounds; No Tenderness; No Distention Neurological: - - Alert, unable to determine orientation - Assessment Assessment: 78 yo female with COPD on O2 admitted with septic shock - Plan Consult Plan (MU): Hospice Plan: Long discussion with daughter, son and son's with Dr. Lynn(piece dye worker), Mitch Beal (lux), ICU nurse and myself. Family's biggest concern is suffering they don't want their mother in pain and anxious. She has been on xanax and pain meds for years. The medications were being held because of low blood pressure, pt is on 2 pressors. Family wants to give morphine and ativan to alleviate suffering and pain and realize it may drop her blood pressure. They also realize she will probably . HEAVEN discussed and signed. They don't want her to have CPR or be intubated. Right now they just want pt to be comfortable. Pt has a long history of chronic illness and has been cared for by daughter. KPS 20%, PPS 30%. - Time On Unit Date of Evaluation: 01/18/19 Hospice Consult Time in: 12:00 Hospice Consult Time Out: 13:30 Hospice Consult Time Total: 90 > 50% of Time Spend In Counseling or Coordinating Care: Yes
[2019-01-18] MEDS ORDERED: HYDROmorphone INJ* 0.5 MG/0.5 ML SYRINGE IV SLOW PU PRN (13:36)
[2019-01-18] MEDS ORDERED: Lorazepam PYXIS KEY PRN (13:38)
--- NOTE | 2019-01-18 13:52 | PN ---
Date of Service: 01/18/19 Critical Care Services: More septic over-night. Requiring now high dose Levophed (30) and Vasopressin still continues to moan in pain Decreased UOP and worsening renal functions Vital Signs: Temp Pulse Resp BP SpO2 FiO2 99.1 F 112 21 74/47 100 29 01/18/19 12:16 01/18/19 12:16 01/18/19 12:56 01/18/19 12:16 01/18/19 12:16 01/16 21:49 Physical Exam: Gen: moaning in pain. not following today Fluid Balance (Past 24 Hours): I= O= Net Intake & Output 01/16/19 01/17/19 01/18/19 01/19/19 06:59 06:59 06:59 06:59 Intake Total 3658 3188 3839 Output Total 275 610 531 21 Balance 3383 2578 3308 -21 Weight 189 lb 9.561 oz 187 lb 13.341 oz 193 lb 1.999 oz Intake: IV Fluids 3077 1714 2565 Aztreonem 1075 50 NS (0.9%) 77 639 2515 IVPB 855 139 Aztreonem 122 139 NS (0.9%) 733 Medicated IV 619 1135 CC - Norepinephrine/ 619 1135 Levophed Oral 0 Packed Cells 581 Output: Mejias 275 610 531 21 Other: Date of Last Bowel t Movement # Bowel Movements 1 Estimated Stool Amount Large Labs: Laboratory Results - last 24 hr 01/18/19 01/18/19 01/18/19 05:25 05:25 05:25 WBC 16.3 H RBC 2.98 L Hgb 8.3 L Hct 27 L MCV 91 MCH 28 MCHC 31 RDW 18 H Plt Count 48 L MPV 9.5 Neut % (Auto) 90.3 Lymph % (Auto) 6.9 [place] % (Auto) 2.5 Eos % (Auto) 0.0 Baso % (Auto) 0.3 Absolute Neuts (auto) 14.7 H Absolute Lymphs (auto) 1.1 Absolute Monos (auto) 0.4 Absolute Eos (auto) 0.0 Absolute Basos (auto) 0.0 Absolute Nucleated RBC 0.0 Nucleated RBC % 0.0 INR (Anticoag Therapy) 3.39 H Sodium 147 H Potassium 5.1 H Chloride 125 H Carbon Dioxide 14 L* Anion Gap 8 BUN 66 H Creatinine 1.52 H Est GFR ( Amer) 40.0 Est GFR (Non-Af Amer) 33.1 BUN/Creatinine Ratio 43.4 H Glucose 97 Lactic Acid Calcium 7.1 L Ionized Calcium 01/18/19 01/18/19 06:20 06:20 WBC RBC Hgb Hct MCV MCH MCHC RDW Plt Count MPV Neut % (Auto) Lymph % (Auto) [place] % (Auto) Eos % (Auto) Baso % (Auto) Absolute Neuts (auto) Absolute Lymphs (auto) Absolute Monos (auto) Absolute Eos (auto) Absolute Basos (auto) Absolute Nucleated RBC Nucleated RBC % INR (Anticoag Therapy) Sodium Potassium Chloride Carbon Dioxide Anion Gap BUN Creatinine Est GFR ( Amer) Est GFR (Non-Af Amer) BUN/Creatinine Ratio Glucose Lactic Acid 2.4 H* Calcium Ionized Calcium 1.11 L Impression: septic shock HOLGER Dehydration Hx CAD s/p CABG S/P TAVR 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 Patient made DNR/DNI. Families wishes are to keep her only comfortable. No further aggressive measures. Will slowly wean her off Vasopressor support. Comfort measures only. Family understand she will pass away when we wean down the Vasopressor support and increase her pain medications. Family just wants her to be comfortable. Comfort measures. Slowly wean down Vasopressor support. Critical Care Time: 97 minutes Critical Care Time:
[2019-01-18] MEDS: HYDROmorphone INJ1* 1 MG/ML SYRINGE IV SLOW PU PRN ×4 (14:51→18:51)
[2019-01-18 16:32] LABS: Albumin 2.5 g/dL (3.2-5.2); Globulin 2.4 g/dL (2-4); Indirect Bilirubin 0.3 mg/dL (0.3-1.0); Total Bilirubin 0.5 mg/dL (0.2-1.0); Total Protein 4.9 g/dL (6.4-8.9)
[2019-01-18 18:31] VITALS: BP 58/36
[2019-01-18] MEDS ORDERED: HYDROmorphone PCA* 20 MG/20 ML PCA.SYRING PCA SCH (19:00)
[2019-01-18] MEDS ORDERED: LORazepam VIAL (for drip)* 100 MG in D5W 100 ML BAG* 50 ML IV SCH (20:00)
--- NOTE | 2019-01-19 01:33 | DS ---
DISCHARGE SUMMARY: DATE OF ADMISSION: 01/16/19 DATE OF : 01/19/19 at 12 a.m. ADMISSION DIAGNOSES: 1. Hypotension with acute blood loss anemia. 2. Lactic acidosis. 3. Leukocytosis, questionable reactive course of sepsis. 4. Thrombocytopenia, likely reactive. CAUSE OF : 1. Sepsis with septic shock and multiorgan failure. 2. Acute kidney injury. 3. Lactic acidosis. 4. Severe hypotension requiring pressors. 5. Possible UTI versus osteomyelitis as the source. CONSULTING PHYSICIAN: 1. Dr. Sander Lynn, ICU. 2. Dr. Dorian Ojeda. 3. Dr. Arcelia Polanco from hospitalist. HOSPITAL COURSE: For full details of history of presenting illness, please refer to the admission H and P dictated by Dr. Bartolo Yeager. This is a 78-year- old female who had the unfortunate history of chronic sacral ulcer, was noted to be having elevated potassium and severe anemia with a drop in hemoglobin and acute kidney injury, initially thought to be all secondary to blood loss anemia and hypovolemic shock. The patient was given 2 units of packed RBCs along with fluid, which seemed to improve her blood pressure; however, the patient was persistently hypotensive and the working diagnosis was changed from hypovolemic and hemorrhagic shock to septic shock by the plastics fitter. Source of sepsis was still not identified, questionable just secondary to UTI versus osteomyelitis. The patient does have history of osteomyelitis. The patient was started on broad-spectrum antibiotics along with the pressors to improve her blood pressure. However, the patient's overall condition did not improve. Her Levophed was maxed out and given that the patient has overall poor outcome, the plastics fitter discussed further with the daughter who initially refused any DNR/ DNI, but finally changed her mind and made the patient comfort care after discussing case with Dr. Collin Paniagua who is the palliative and hospice doctor , and the patient was started on comfort measures only, off the pressors on . On 01/19/19, at 12 a.m. the patient was noted to be in cardiac arrest by the nurse. Family was present at bedside and postmortem care was initiated and family was notified at bedside. [id number]/[facility] #: [id number] MTDD
== END 2019-01-19 | disposition expired | DRG 871 ==
LOC: ED 20:39 → ICU 01-16 01:59
PROVIDERS: ADMIT Internal Medicine; ATTEND Internal Medicine
PROC: 05HN33Z Insertion of Infusion Device into Left Internal Jugular Vein, Percutaneous Approach (ICD-10-PCS; principal; 2019-01-16)
PROC: 05HP33Z Insertion of Infusion Device into Right External Jugular Vein, Percutaneous Approach (ICD-10-PCS; 2019-01-16)
PROC: B543ZZA Ultrasonography of Right Jugular Veins, Guidance (ICD-10-PCS; 2019-01-16)
PROC: 30233N1 Transfusion of Nonautologous Red Blood Cells into Peripheral Vein, Percutaneous Approach (ICD-10-PCS; 2019-01-16)
PROC: 3E033XZ Introduction of Vasopressor into Peripheral Vein, Percutaneous Approach (ICD-10-PCS; 2019-01-16)
DX: A41.9 Sepsis, unspecified organism (principal); L89.154 Pressure ulcer of sacral region, stage 4; R65.21 Severe sepsis with septic shock; D62 Acute posthemorrhagic anemia; M86.8X8 Other osteomyelitis, other site; B37.0 Candidal stomatitis; N17.9 Acute kidney failure, unspecified; I48.91 Unspecified atrial fibrillation; J44.9 Chronic obstructive pulmonary disease, unspecified; F41.9 Anxiety disorder, unspecified; E66.01 Morbid (severe) obesity due to excess calories; B37.2 Candidiasis of skin and nail; E03.9 Hypothyroidism, unspecified; K43.2 Incisional hernia without obstruction or gangrene; L89.892 Pressure ulcer of other site, stage 2; D69.6 Thrombocytopenia, unspecified; K52.9 Noninfective gastroenteritis and colitis, unspecified; M85.80 Other specified disorders of bone density and structure, unspecified site; L89.620 Pressure ulcer of left heel, unstageable; E86.0 Dehydration; F03.90 Unspecified dementia, unspecified severity, without behavioral disturbance, psychotic disturbance, mood disturbance, and anxiety; N30.90 Cystitis, unspecified without hematuria; I25.10 Atherosclerotic heart disease of native coronary artery without angina pectoris; E87.5 Hyperkalemia; L89.510 Pressure ulcer of right ankle, unstageable; L89.312 Pressure ulcer of right buttock, stage 2; Z95.1 Presence of aortocoronary bypass graft; Z88.5 Allergy status to narcotic agent; Z88.0 Allergy status to penicillin; Z88.2 Allergy status to sulfonamides; Z88.8 Allergy status to other drugs, medicaments and biological substances; Z88.6 Allergy status to analgesic agent; Z88.1 Allergy status to other antibiotic agents; Z91.041 Radiographic dye allergy status; Z87.442 Personal history of urinary calculi; Z95.2 Presence of prosthetic heart valve; Z68.34 Body mass index [BMI] 34.0-34.9, adult; Z86.711 Personal history of pulmonary embolism; Z51.5 Encounter for palliative care
CPT/HCPCS: 36415; 71045; 80048; 80053; 80076; 81003; 81015; 82272; 82330; 82803; 83605; 84484; 85025; 85060; 85610; 85730; 86850; 86900; 86901; 86922; 87040; 87045; 87046; 87077; 87086; 87186; 87493; 87641; 87899; 93005; 99285; A9270-GY; J1170; J1940; J2020; J2060; J2405; P9040